=== PATIENT | male | born 1945 | race Caucasian/White ===

== ENCOUNTER 2020-08-03 10:43 | Outpatient (REF) | payer MEDICARE, SELFPAY | END 2020-08-03 10:44 | disposition home or self-care (01) | LOC: HO.LAB 10:43 | PROVIDERS: Visit Provider Internal Medicine | DX: Z20.828 Contact with and (suspected) exposure to other viral communicable diseases (principal) | CPT/HCPCS: C9803; U0003 ==

== ENCOUNTER 2020-10-13 14:09 | Outpatient (REF) | payer MEDICARE, SELFPAY ==
--- NOTE | 2020-10-13 14:13 | XR_ITS ---
EXAMINATION: XR KNEE, RIGHT CLINICAL INFORMATION: Right lower leg injury COMPARISON: None TECHNIQUE: Four views of the right knee. FINDINGS: There is loss of medial and patellofemoral compartment joint space with periarticular spurring. There is superior patellar spur. No abnormal joint effusion seen. The soft tissues are normal. XR/XR knee RT 4V IMPRESSION: Mild degenerative changes medial and patellofemoral compartment. There is anterior superior patellar enthesophyte.
== END 2020-10-13 14:10 | disposition home or self-care (01) ==
LOC: HO.HMGCX 14:09
PROVIDERS: PCP Internal Medicine; Visit Provider Nurse Practitioner Family
DX: S89.91XA Unspecified injury of right lower leg, initial encounter (principal); X58.XXXA Exposure to other specified factors, initial encounter; Y93.9 Activity, unspecified; Y92.9 Unspecified place or not applicable; Y99.9 Unspecified external cause status
CPT/HCPCS: 73564

== ENCOUNTER 2022-08-16 14:21 | Outpatient (REF) | payer MEDICARE, SELFPAY ==
[2022-08-16 14:51] LABS: Binax Internal Control QC Valid; Binax Now Covid-19 Ag Negative (Negative)
== END 2022-08-16 14:22 | disposition home or self-care (01) ==
LOC: HO.HMGCLDS 14:21
PROVIDERS: PCP Internal Medicine
DX: J02.9 Acute pharyngitis, unspecified (principal); Z20.822 Contact with and (suspected) exposure to COVID-19
CPT/HCPCS: 87811; C9803

== ENCOUNTER 2022-08-22 17:23 | Outpatient (REF) | payer MEDICARE, SELFPAY | END 2022-08-22 17:24 | disposition home or self-care (01) | LOC: HO.LNP 17:23 | PROVIDERS: Visit Provider Nurse Practitioner Family | DX: R39.11 Hesitancy of micturition (principal) | CPT/HCPCS: 87086; 87088; 87186 ==

== ENCOUNTER 2023-04-12 10:26 | Outpatient (AMB) | payer MEDICARE, SELFPAY ==
--- NOTE | 2023-04-12 10:28 | A.OFFPC_ITS ---
Vital Signs 04/12/23 10:32 Height 6 ft 3 in Weight 207 lb 6 oz BMI 25.9 BP 110/72 Blood Pressure Location Lt brachial Position Sitting Pulse 66 Pulse Source Pulse Oximeter Pulse Oximetry (%) 98 Oxygen Delivery Method Room Air Intake Visit Reasons: Med Management Intake Note: Patient is here to follow up on medication management. Pig Caster Required: No Project Construction Assistant Manager: Not Required per policy Accompanied by: Self / Same As Patient Allergies No Known Allergies [No Known Allergies*] Allergy (Verified 04/12/23 10:32) Medication List - Last Reconciled 04/12/23 by Jake Burgos MD hydrochlorothiazide 25 mg PO QAM lorazepam 1 mg PO BID 28 days oxycodone 5 mg PO QID PRN Tobacco use date assessed: 02/15/23 Fall risk assessment: No Falls in past year Last assessed Fall Risk: 04/12/23 Dental Screening Dental Screen Date: 04/12/23 Did you have a dental visit in the last 12 months?: Yes Did you have a dental problem in the last 6 months where you did not have access to dental care?: No Was dental information given to patient?: Patient has dentist HPI Med Management HPI Details f/u chronic cervical disc dis; stab;e PFSH Medical History Other spondylosis, cervical region Pharyngitis Surgical History History of prostate surgery Family History Father Bone cancer Mother Uterine cancer Brother No problems noted. Sister No problems noted. Social History Housing: House Alcohol intake: never Patient Tobacco Use Status: Never used Tobacco e-Cigarette/Vaping Use: Never Used Second Hand Smoke Exposure: No service: No Current occupational status: retired Cognitive needs: No Hearing needs: No Vision needs: Yes Questionnaire PHQ-9 Over the last 2 weeks, how often have you been bothered by any of the following problems? Depression Screening Interpretation: Negative Source: Developed by Drs. José Antonio Holloway, Martha Castillo, Daniel Ramos and colleagues, with an educational rosa from [employer]. Thrive Questionnaire Date Thrive assessed: 11/23/22 Currently or been in a relationship where the following occur: no concerns reported DEBO-7 AMB Questionnaire DEBO-7 Date DEBO - 7 assessed: 03/15/23 Source: Developed by Drs. José Antonio Holloway, Martha Castillo, Daniel Ramos and colleagues, with an educational rosa from [employer]. Review of Systems Const Denies chills, Denies headache(s) and Denies weight loss ENT Denies headache(s) Card Denies chest pain, Denies syncope, Denies irregular heart rhythm and Denies dyspnea Resp Denies chest congestion, Denies cough and Denies dyspnea GI Denies abdominal pain, Denies change in stool character, Denies nausea and Denies vomiting Musc Denies deformity and Denies joint swelling Neuro Denies syncope and Denies headache(s) Physical exam (Primary Care) Vital Signs: Last Vital Signs Pulse 66 04/12/23 10:32 BP 110/72 04/12/23 10:32 Pulse Ox 98 04/12/23 10:32 Oxygen Delivery Method Room Air 04/12/23 10:32 BMI result Body Mass Index 25.9 Tobacco/Smoking Status: Tobacco use Status Tobacco use date assessed 02/15/23 04/12/23 10:30 Patient Tobacco Use Status Never used Tobacco 04/12/23 10:30 e-Cigarette/Vaping Use Never Used 04/12/23 10:30 Depression Screening Interpretation: Negative Thrive Assessment: Date of Thrive Assessment Date Thrive assessed 11/23/22 04/12/23 10:30 Currently or been in a relationship where the following occur: no concerns reported Const General: cooperative, comfortable and no acute distress Resp Effort & Inspection: normal respiratory effort Auscultation: clear to auscultation bilaterally Percussion: percussion normal Cardio Jugular venous distension: no JVD Rate: regular rate Rhythm: regular rhythm GI Inspection: Yes normal to inspection Assessment and Plan Assessment & Plan (1) Cervical spondylosis with myelopathy: Code(s): M47.12 - Other spondylosis with myelopathy, cervical region Plan: stable; same rx Medications: Refilled oxycodone 5 mg PO QID PRN 120 tabs 0RF pain M47.12 - Other spondylosis with myelopathy, cervical region Coding Level of Care Code Est Pt Level 3 (25756) Diagnoses Cervical spondylosis with myelopathy M47.12
[2023-04-12 10:32] VITALS: BP 110/72; PULSE 66; O2SAT 98; BMI 25.9
== END 2023-04-12 11:04 | disposition home or self-care (01) ==
PROVIDERS: PCP Internal Medicine; Visit Provider Internal Medicine
DX: M47.12 Other spondylosis with myelopathy, cervical region (principal)
CPT/HCPCS: 99213

== ENCOUNTER 2023-05-03 12:19 | Outpatient (AMB) | payer MEDICARE, SELFPAY ==
--- NOTE | 2023-05-03 12:21 | MHC.OFFWIV ---
Intake Vital Signs 05/03/23 12:31 Height 6 ft 3 in Weight 207 lb 6 oz BMI 25.9 BP 130/70 Blood Pressure Location Lt brachial Position Sitting Pulse 80 Pulse Source Pulse Oximeter Temp 97.8 F Temp Source Temporal Artery Scan Pulse Oximetry (%) 97 Oxygen Delivery Method Room Air Intake Visit Reasons: EP Asthma/Tired Intake Note: Pt is here c/o possible asthma flare ups. Pt states he has been feeling extra tired. Patient Tobacco Use Status: Never used Tobacco Allergies No Known Allergies [No Known Allergies*] Allergy (Verified 05/03/23 12:25) Do you need a note to return to daycare/school/sports/work: No HPI HPI Comments History of Present Illness Details This is a 77-year-old male with past medical history significant for mild persistent asthma who presents to the office today for sick visit. Patient complaining of generalized weakness and fatigue x 1 week. He states his symptoms started mowing his lawn. He denies any specific symptoms including fevers/chills, cough, congestion/rhinorrhea, dysuria/hematuria, urinary frequency/urgency, sore throat, chest pain, shortness of breath, abdominal pain, nausea/vomiting/diarrhea, or lightheadedness/dizziness. [facility] Medical History Other spondylosis, cervical region Pharyngitis Surgical History History of prostate surgery Family History Father Bone cancer Mother Uterine cancer Brother No problems noted. Sister No problems noted. Social History Housing: House Alcohol intake: never Patient Tobacco Use Status: Never used Tobacco e-Cigarette/Vaping Use: Never Used Second Hand Smoke Exposure: No service: No Current occupational status: retired Cognitive needs: No Hearing needs: No Vision needs: Yes Review of Systems Const All systems reviewed & are unremarkable except as noted in HPI and below Reports no additional complaints and Reports fatigue Eyes Reports no additional complaints ENT Reports no additional complaints Card Reports no additional complaints Resp Reports no additional complaints GI Reports no additional complaints Reports no additional complaints Musc Reports no additional complaints Skin/Breast Reports system reviewed and no additional complaints, except as documented Neuro Reports no additional complaints Psych Reports no additional complaints Endo Reports no additional complaints and Reports fatigue Rajan/Lymph Reports no additional complaints Aller/Immun Reports no additional complaints Physical Exam Vital Signs: Last Vital Signs Temp 97.8 F 05/03/23 12:31 Pulse 80 05/03/23 12:31 BP 130/70 05/03/23 12:31 Pulse Ox 97 05/03/23 12:31 Oxygen Delivery Method Room Air 05/03/23 12:31 BMI result Body Mass Index 25.9 Const General: cooperative, healthy appearing, no acute distress and well developed Orientation/consciousness: patient oriented x3 HEENT Head: Yes normal to inspection Ears: hearing grossly normal bilaterally General nose exam: Normal external nose present Face and sinus: Yes normal facial exam Mouth: Normal oral and palatal mucosa present Eyes General: appearance normal, both eyes and all related structures Pupils: Equal, round and reactive pupils present EOM: EOMs intact bilaterally Resp Effort & Inspection: normal respiratory effort and no respiratory distress Auscultation: clear to auscultation bilaterally Cardio Rate: regular rate Rhythm: regular rhythm Heart sounds: no gallops, no murmurs and no rubs Peripheral pulses: Peripheral pulses 2+ throughout GI Inspection: No distended Palpation (GI): Soft to palpation and nontender Auscultation: normal bowel sounds Skin General skin exam: no rashes or lesions noted Neuro General: patient oriented x3 Cranial nerves: Yes CN's II-XII intact bilaterally and Yes Equal, round and reactive pupils present Gait exam (Neuro): Normal gait present Motor exam (neuro): 5/5 motor strength present throughout Extrem General: Yes normal to inspection, Yes full ROM and Yes no clubbing, cyanosis or edema Psych Appearance: grossly normal Mental Status: mental status grossly normal Assessment & Plan Assessment & Plan (1) Fatigue: Code(s): R53.83 - Other fatigue Plan: This is a 77-year-old male presenting to the office with nonspecific weakness and fatigue. He denies any specific or infectious symptoms. He is overall nontoxic appearing his physical exam is benign. Patient likely has a viral syndrome. He was tested for COVID. Recommended blood work including CBC, CMP, and TSH, which has already been ordered by his primary care physician, but patient declines at this time due to his symptoms. Encouraged patient to have this blood work done sooner rather than later specially given his symptoms. Recommended symptomatic management including rest and increase fluids. Patient was instructed to follow-up here or go to the emergency room for persistent/worsening symptoms or if he were to develop fever/chills or any specific infectious symptoms. Patient verbalizes understanding and he is in agreement with the plan. Orders: Orders SARS-CoV2/FLU/RSV Today R53.83 - Other fatigue Coding Level of Care Code Est Pt Level 3 (30136) Diagnoses Fatigue R53.83
[2023-05-03 12:31] VITALS: BP 130/70; PULSE 80; TEMP 36.6; O2SAT 97; BMI 25.9
== END 2023-05-03 13:09 | disposition home or self-care (01) ==
PROVIDERS: PCP Internal Medicine; Visit Provider Physician Assistant Medical
DX: R53.83 Other fatigue (principal)
CPT/HCPCS: 99213

== ENCOUNTER 2023-05-03 19:59 | Outpatient (REF) | payer MEDICARE, SELFPAY ==
[2023-05-03 21:07] LABS: Influenza A PCR NEGATIVE (Negative); Influenza B PCR NEGATIVE (Negative); Resp Syncy Virus RNA Qual PCR NEGATIVE (Negative); SARS COV2 PCR INHOUSE NEGATIVE (Negative)
== END 2023-05-03 20:00 | disposition home or self-care (01) ==
LOC: HO.HMGCLNP 19:59
PROVIDERS: Visit Provider Physician Assistant Medical
DX: Z20.822 Contact with and (suspected) exposure to COVID-19 (principal); R53.83 Other fatigue
CPT/HCPCS: 0241U

== ENCOUNTER 2023-05-14 09:21 | Outpatient (AMB) | payer MEDICARE, SELFPAY ==
--- NOTE | 2023-05-14 09:25 | A.OFFPC_ITS ---
Vital Signs 05/14/23 09:28 Height 6 ft 3 in Weight 199 lb 6 oz BMI 24.9 BP 145/89 H Blood Pressure Location Lt brachial Position Sitting Pulse 80 Pulse Source Pulse Oximeter Pulse Oximetry (%) 98 Oxygen Delivery Method Room Air Intake Visit Reasons: med review Intake Note: Patient is here to follow up on medication review. Roller Leveler Required: No Manager Training: Not Required per policy Accompanied by: Self / Same As Patient Allergies No Known Allergies [No Known Allergies*] Allergy (Verified 05/14/23 09:27) Medication List - Last Reconciled 05/14/23 by Jake Burgos MD fluticasone propionate 50 mcg/actuation (Flovent Diskus) 1 inh inhalation BID hydrochlorothiazide 25 mg PO QAM lorazepam 1 mg PO BID 28 days oxycodone 5 mg PO QID PRN Tobacco use date assessed: 05/14/23 Fall risk assessment: No Falls in past year Last assessed Fall Risk: 05/14/23 Dental Screening Dental Screen Date: 05/14/23 Did you have a dental visit in the last 12 months?: Yes Did you have a dental problem in the last 6 months where you did not have access to dental care?: No Was dental information given to patient?: Patient has dentist HPI med review HPI Details f/u chronic neck pain; stable on rx PFSH Medical History Other spondylosis, cervical region Pharyngitis Surgical History History of prostate surgery Family History Father Bone cancer Mother Uterine cancer Brother No problems noted. Sister No problems noted. Social History Housing: House Alcohol intake: never Patient Tobacco Use Status: Never used Tobacco e-Cigarette/Vaping Use: Never Used Second Hand Smoke Exposure: No service: No Current occupational status: retired Cognitive needs: No Hearing needs: No Vision needs: Yes Questionnaire PHQ-9 Over the last 2 weeks, how often have you been bothered by any of the following problems? Depression Screening Interpretation: Negative Source: Developed by Jose Angel Stoveret B.W. Jonathan, Daniel Ramos and colleagues, with an educational rosa from [employer]. Thrive Questionnaire Date Thrive assessed: 11/23/22 Currently or been in a relationship where the following occur: no concerns reported DEBO-7 AMB Questionnaire DEBO-7 Date DEBO - 7 assessed: 03/15/23 Source: Developed by Martha Stover, Daniel Ramos and colleagues, with an educational rosa from [employer]. Review of Systems Const Denies chills, Denies headache(s) and Denies weight loss ENT Denies headache(s) Card Denies chest pain, Denies syncope, Denies irregular heart rhythm and Denies dyspnea Resp Denies chest congestion, Denies cough and Denies dyspnea GI Denies abdominal pain, Denies change in stool character, Denies nausea and Denies vomiting Musc Denies deformity and Denies joint swelling Neuro Denies syncope and Denies headache(s) Physical exam (Primary Care) Vital Signs: Last Vital Signs Pulse 80 05/14/23 09:28 BP 145/89 H 05/14/23 09:28 Pulse Ox 98 05/14/23 09:28 Oxygen Delivery Method Room Air 05/14/23 09:28 BMI result Body Mass Index 24.9 Tobacco/Smoking Status: Tobacco use Status Tobacco use date assessed 05/14/23 05/14/23 09:36 Patient Tobacco Use Status Never used Tobacco 05/14/23 09:25 e-Cigarette/Vaping Use Never Used 05/14/23 09:25 Depression Screening Interpretation: Negative Thrive Assessment: Date of Thrive Assessment Date Thrive assessed 11/23/22 05/14/23 09:25 Currently or been in a relationship where the following occur: no concerns reported Const General: cooperative, comfortable and no acute distress Resp Effort & Inspection: normal respiratory effort Auscultation: clear to auscultation bilaterally Percussion: percussion normal Cardio Jugular venous distension: no JVD Rate: regular rate Rhythm: regular rhythm GI Inspection: Yes normal to inspection Assessment and Plan Assessment & Plan (1) Cervical spondylosis with myelopathy: Code(s): M47.12 - Other spondylosis with myelopathy, cervical region Plan: stable; same rx Medications: Refilled lorazepam 1 mg PO BID 28 days 56 tabs 5RF M47.12 - Other spondylosis with myelopathy, cervical region oxycodone 5 mg PO QID PRN 120 tabs 0RF pain M47.12 - Other spondylosis with myelopathy, cervical region Coding Level of Care Code Est Pt Level 3 (36447) Diagnoses Cervical spondylosis with myelopathy M47.12
[2023-05-14 09:28] VITALS: BP 145/89; PULSE 80; O2SAT 98; BMI 24.9
== END 2023-05-14 10:31 | disposition home or self-care (01) ==
PROVIDERS: PCP Internal Medicine; Visit Provider Internal Medicine
DX: M47.12 Other spondylosis with myelopathy, cervical region (principal)
CPT/HCPCS: 99213

== ENCOUNTER 2023-05-16 07:37 | Outpatient (REF) | payer MEDICARE, SELFPAY ==
[2023-05-16 07:50] LABS: MANUAL DIFF FLAG NO
[2023-05-16 08:03] LABS: Basophils Percent Auto 0.2 % (0-2); Eosinophils Absolute Auto 0.3 X10*3/uL (0.0-0.4); Eosinophils Percent Auto 3.7 % (0-4); Hematocrit 44.6 % (42.0-52.0); Hemoglobin 15.4 g/dl (14.0-18.0); Imm Gran Abs Auto 0.02 X10*3/uL (0.00-0.03); Imm Gran Pct Auto 0.2 % (0.0-0.4); Lymphocytes Absolute Auto 3.7 X10*3/uL (1.2-4.9); Lymphocytes Percent Auto 45.8 % (20-40); Mean Corpuscular HGB Conc 34.5 g/dl (31.0-36.0); Mean Corpuscular Volume 86.9 fL (80.0-98.0); Mean Platelet Volume 9.3 fL (9.4-12.4); Monocytes Absolute Auto 0.4 X10*3/uL (0.1-1.2); Monocytes Percent Auto 5.3 % (2-11); Neutrophils Absolute Auto 3.7 x10*3/uL (2.0-8.3); Neutrophils Percent Auto 44.8 % (45-73); Platelet Count 253 X10*3/uL (160-400); Red Blood Count 5.13 X10*6/uL (4.60-5.80); Red Cell Distribution Width 12.1 % (11.0-16.0); White Blood Count 8.2 X10*3/uL (4.8-10.8)
[2023-05-16 09:46] LABS: Alanine Aminotransferase 13 U/L (0-40); Albumin Level 4.5 g/dL (3.5-5.0); Alkaline Phosphatase 54 U/L (39-117); Anion Gap 14 (12-20); Aspartate Amino Transferase 16 U/L (5-37); Bilirubin Total 1.4 mg/dL (0.0-1.0); Blood Urea Nitrogen 14 mg/dL (9-16); Calcium 9.7 mg/dL (8.4-10.2); Carbon Dioxide 30 mmol/L (22-29); Chloride 100 mmol/L (96-108); Cholesterol 209 mg/dL (<200); Estimated Glomerular Filt Rate > 60; Glucose Fasting 111 mg/dL (60-99); HDL Cholesterol 46 mg/dL (>40); LDL Cholesterol Calculated 133 mg/dL (<100); Potassium 2.7 mmol/L (3.3-5.1); Sodium 141 mmol/L (135-145); Total Protein 7.8 g/dL (6.5-8.0); Triglycerides 150 mg/dL (<150)
[2023-05-16 10:02] LABS: Thyroid Stimulating Hormone 2.19 uIU/mL (0.32-4.0)
== END 2023-05-16 07:38 | disposition home or self-care (01) ==
LOC: HO.LAB 07:37
PROVIDERS: PCP Internal Medicine; Visit Provider Internal Medicine
DX: E78.5 Hyperlipidemia, unspecified (principal); D64.9 Anemia, unspecified; N28.9 Disorder of kidney and ureter, unspecified; E03.9 Hypothyroidism, unspecified
CPT/HCPCS: 36415; 80053; 80061; 84443; 85025

== ENCOUNTER 2023-06-14 10:21 | Outpatient (AMB) | payer MEDICARE, SELFPAY ==
[2023-06-14 10:24] VITALS: BP 132/72; PULSE 77; O2SAT 98; BMI 25.4
--- NOTE | 2023-06-14 10:24 | A.OFFPC_ITS ---
Vital Signs 06/14/23 10:24 Height 6 ft 3 in Weight 203 lb BMI 25.4 BP 132/72 Blood Pressure Location Lt brachial Position Sitting Pulse 77 Pulse Source Pulse Oximeter Pulse Oximetry (%) 98 Oxygen Delivery Method Room Air Intake Visit Reasons: med review Sparker And Patcher: Not Required per policy Accompanied by: Self / Same As Patient Allergies No Known Allergies [No Known Allergies*] Allergy (Verified 06/14/23 10:24) Tobacco use date assessed: 05/14/23 Fall risk assessment: No Falls in past year Last assessed Fall Risk: 06/14/23 Dental Screening Dental Screen Date: 06/14/23 Did you have a dental visit in the last 12 months?: No Did you have a dental problem in the last 6 months where you did not have access to dental care?: No Was dental information given to patient?: Patient has dentist HPI med review HPI Details chronic neck pain on pain management; stable and compliant; has some depressive symptoms and would like to see a therapist [facility] Medical History Pharyngitis Other spondylosis, cervical region Surgical History History of prostate surgery Family History Father Bone cancer Mother Uterine cancer Brother No problems noted. Sister No problems noted. Social History Housing: House Alcohol intake: never Patient Tobacco Use Status: Never used Tobacco e-Cigarette/Vaping Use: Never Used Second Hand Smoke Exposure: No service: No Current occupational status: retired Cognitive needs: No Hearing needs: No Vision needs: Yes Questionnaire PHQ-9 Over the last 2 weeks, how often have you been bothered by any of the following problems? 1. Little interest or pleasure in doing things: not at all 2. Feeling down, depressed, or hopeless: not at all 3. Trouble falling or staying asleep, or sleeping too much: not at all 4. Feeling tired or having little energy: not at all 5. Poor appetite or overeating: not at all 6. Feeling bad about yourself - or that you are a failure or have let yourself or your family down: not at all 7. Trouble concentrating on things, such as reading the newspaper or watching television: not at all 8. Moving or speaking so slowly that other people could have noticed. Or the opposite - being so fidgety or restless that you have been moving around a lot more than usual: not at all 9. Thoughts that you would be better off or of hurting yourself in some way: not at all Total score: 0 Depression Screening Interpretation: Negative Source: Developed by Drs. José Antonio Holloway, Martha Castillo, Daniel Ramso and colleagues, with an educational rosa from [employer]. Thrive Questionnaire Date Thrive assessed: 11/23/22 AUDIT C Alcohol Use Questionnaire (AUDIT-C) 1. How often do you have a drink containing alcohol?: Never Total Score: 0 DEBO-7 AMB Questionnaire DEBO-7 Date DEBO - 7 assessed: 03/15/23 Source: Developed by Drs. José Antonio Holloway, Martha Castillo, Daniel Ramos and colleagues, with an educational rosa from [employer]. Review of Systems Const Denies chills, Denies headache(s) and Denies weight loss ENT Denies headache(s) Card Denies chest pain, Denies syncope, Denies irregular heart rhythm and Denies dyspnea Resp Denies chest congestion, Denies cough and Denies dyspnea GI Denies abdominal pain, Denies change in stool character, Denies nausea and Denies vomiting Musc Denies deformity and Denies joint swelling Neuro Denies syncope and Denies headache(s) Physical exam (Primary Care) Vital Signs: Last Vital Signs Pulse 77 06/14/23 10:24 BP 132/72 06/14/23 10:24 Pulse Ox 98 06/14/23 10:24 Oxygen Delivery Method Room Air 06/14/23 10:24 BMI result Body Mass Index 25.4 Tobacco/Smoking Status: Tobacco use Status Tobacco use date assessed 05/14/23 06/14/23 10:25 Patient Tobacco Use Status Never used Tobacco 06/14/23 10:25 e-Cigarette/Vaping Use Never Used 06/14/23 10:25 PHQ-9: PHQ-9 Score PHQ-9: Total score 0 06/14/23 10:25 Depression Screening Interpretation: Negative Thrive Assessment: Date of Thrive Assessment Date Thrive assessed 11/23/22 06/14/23 10:25 Const General: cooperative, comfortable, no acute distress and alert Neck Neck: Yes no lymphadenopathy Thyroid: Thyroid normal Resp Effort & Inspection: normal respiratory effort Auscultation: clear to auscultation bilaterally Percussion: percussion normal Cardio Jugular venous distension: no JVD Palpation: normal PMI Rate: regular rate Rhythm: regular rhythm Heart sounds: S1 normal heart sound present and S2 normal heart sound present GI Inspection: Yes normal to inspection Palpation (GI): No hepatosplenomegaly present Skin General skin exam: no rashes or lesions noted Extrem General: Yes no clubbing, cyanosis or edema Assessment and Plan Assessment & Plan (1) Cervical spondylosis with myelopathy: Code(s): M47.12 - Other spondylosis with myelopathy, cervical region Plan: stable; same rx Coding Level of Care Code Est Pt Level 3 (80978) Diagnoses Cervical spondylosis with myelopathy M47.12
== END 2023-06-14 10:46 | disposition home or self-care (01) ==
PROVIDERS: PCP Internal Medicine; Visit Provider Internal Medicine
DX: M47.12 Other spondylosis with myelopathy, cervical region (principal)
CPT/HCPCS: 99213

== ENCOUNTER 2023-07-15 08:21 | Outpatient (AMB) | payer MEDICARE, SELFPAY ==
[2023-07-15 08:30] VITALS: BP 138/70; PULSE 67; O2SAT 99; BMI 25.2
--- NOTE | 2023-07-15 08:30 | A.OFFPC_ITS ---
Vital Signs 07/15/23 08:30 Height 6 ft 3 in Weight 202 lb BMI 25.2 BP 138/70 Blood Pressure Location Lt brachial Position Sitting Pulse 67 Pulse Source Pulse Oximeter Pulse Oximetry (%) 99 Oxygen Delivery Method Room Air Intake Visit Reasons: med review Allergies No Known Allergies [No Known Allergies*] Allergy (Verified 07/15/23 08:31) Medication List - Last Reconciled 07/15/23 by Jake Burgos MD fluticasone propionate 50 mcg/actuation (Flovent Diskus) 1 inh inhalation BID hydrochlorothiazide 25 mg PO QAM lorazepam 1 mg PO BID 28 days oxycodone 5 mg PO QID PRN Tobacco use date assessed: 05/14/23 Fall risk assessment: No Falls in past year Last assessed Fall Risk: 07/15/23 Dental Screening Dental Screen Date: 07/15/23 Did you have a dental visit in the last 12 months?: Yes Did you have a dental problem in the last 6 months where you did not have access to dental care?: No Was dental information given to patient?: Patient has dentist HPI med review HPI Details cervical spondylosis on rx ;doing well andcompliant [facility] Medical History Pharyngitis Other spondylosis, cervical region Surgical History History of prostate surgery Family History Father Bone cancer Mother Uterine cancer Brother No problems noted. Sister No problems noted. Social History Housing: House Alcohol intake: never Patient Tobacco Use Status: Never used Tobacco e-Cigarette/Vaping Use: Never Used Second Hand Smoke Exposure: No service: No Current occupational status: retired Cognitive needs: No Hearing needs: No Vision needs: Yes Questionnaire PHQ-9 Over the last 2 weeks, how often have you been bothered by any of the following problems? 1. Little interest or pleasure in doing things: not at all 2. Feeling down, depressed, or hopeless: not at all 3. Trouble falling or staying asleep, or sleeping too much: not at all 4. Feeling tired or having little energy: not at all 5. Poor appetite or overeating: not at all 6. Feeling bad about yourself - or that you are a failure or have let yourself or your family down: not at all 7. Trouble concentrating on things, such as reading the newspaper or watching television: not at all 8. Moving or speaking so slowly that other people could have noticed. Or the opposite - being so fidgety or restless that you have been moving around a lot more than usual: not at all 9. Thoughts that you would be better off or of hurting yourself in some way: not at all Total score: 0 Depression Screening Interpretation: Negative Depression Screening Done: Yes Source: Developed by Drs. José Antonio Holloway, Martha Castillo, Daniel Ramos and colleagues, with an educational rosa from [employer]. Thrive Questionnaire Date Thrive assessed: 11/23/22 AUDIT C Alcohol Use Questionnaire (AUDIT-C) 1. How often do you have a drink containing alcohol?: Never Total Score: 0 DEBO-7 AMB Questionnaire DEBO-7 Date DEBO - 7 assessed: 03/15/23 Source: Developed by Drs. José Antonio Holloway, Martha Castillo, Daniel Ramos and colleagues, with an educational rosa from [employer]. Review of Systems Const Denies chills, Denies headache(s) and Denies weight loss ENT Denies headache(s) Card Denies chest pain, Denies syncope, Denies irregular heart rhythm and Denies dyspnea Resp Denies chest congestion, Denies cough and Denies dyspnea GI Denies abdominal pain, Denies change in stool character, Denies nausea and Denies vomiting Musc Denies deformity and Denies joint swelling Neuro Denies syncope and Denies headache(s) Physical exam (Primary Care) Vital Signs: Last Vital Signs Pulse 67 07/15/23 08:30 BP 138/70 07/15/23 08:30 Pulse Ox 99 07/15/23 08:30 Oxygen Delivery Method Room Air 07/15/23 08:30 BMI result Body Mass Index 25.2 Tobacco/Smoking Status: Tobacco use Status Tobacco use date assessed 05/14/23 07/15/23 08:36 Patient Tobacco Use Status Never used Tobacco 07/15/23 08:36 e-Cigarette/Vaping Use Never Used 07/15/23 08:36 PHQ-9: PHQ-9 Score PHQ-9: Total score 0 07/15/23 08:36 Depression Screening Interpretation: Negative Thrive Assessment: Date of Thrive Assessment Date Thrive assessed 11/23/22 07/15/23 08:36 Const General: cooperative, comfortable, no acute distress and alert Neck Neck: Yes no lymphadenopathy Thyroid: Thyroid normal Resp Effort & Inspection: normal respiratory effort Auscultation: clear to auscultation bilaterally Percussion: percussion normal Cardio Jugular venous distension: no JVD Palpation: normal PMI Rate: regular rate Rhythm: regular rhythm Heart sounds: S1 normal heart sound present and S2 normal heart sound present GI Inspection: Yes normal to inspection Palpation (GI): No hepatosplenomegaly present Skin General skin exam: no rashes or lesions noted Extrem General: Yes no clubbing, cyanosis or edema Assessment and Plan Assessment & Plan (1) Cervical spondylosis with myelopathy: Code(s): M47.12 - Other spondylosis with myelopathy, cervical region Plan: stable; same rx Medications: Refilled oxycodone 5 mg PO QID PRN 120 tabs 0RF pain M47.12 - Other spondylosis with myelopathy, cervical region lorazepam 1 mg PO BID 56 tabs 5RF 28 days M47.12 - Other spondylosis with myelopathy, cervical region Coding Level of Care Code Est Pt Level 3 (08702) Diagnoses Cervical spondylosis with myelopathy M47.12
== END 2023-07-15 09:11 | disposition home or self-care (01) ==
PROVIDERS: PCP Internal Medicine; Visit Provider Internal Medicine
DX: M47.12 Other spondylosis with myelopathy, cervical region (principal)
CPT/HCPCS: 99213

== ENCOUNTER 2023-08-14 08:14 | Outpatient (AMB) | payer MEDICARE, SELFPAY ==
[2023-08-14 08:29] VITALS: BP 140/72; PULSE 70; O2SAT 99; BMI 24.7
--- NOTE | 2023-08-14 08:29 | A.OFFPC_ITS ---
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: Not Required per policy Accompanied by: Self / Same As Patient Allergies No Known Allergies [No Known Allergies*] Allergy (Verified 08/14/23 08:30) Medication List - Last Reconciled 08/14/23 by Jake Burgos MD fluticasone propionate 50 mcg/actuation (Flovent Diskus) 1 inh inhalation BID hydrochlorothiazide 25 mg PO QAM lorazepam 1 mg PO BID 28 days oxycodone 5 mg PO QID PRN Tobacco use date assessed: 05/14/23 Fall risk assessment: No Falls in past year Last assessed Fall Risk: 08/14/23 Dental Screening Dental Screen Date: 08/14/23 Did you have a dental visit in the last 12 months?: Yes Did you have a dental problem in the last 6 months where you did not have access to dental care?: No Was dental information given to patient?: Patient has dentist HPI med review HPI Details chronic neck pain on rx; doing well [facility] Medical History Pharyngitis Other spondylosis, cervical region Surgical History History of prostate surgery Family History Father Bone cancer Mother Uterine cancer Brother No problems noted. Sister No problems noted. Social History Housing: House Alcohol intake: never Patient Tobacco Use Status: Never used Tobacco e-Cigarette/Vaping Use: Never Used Second Hand Smoke Exposure: No service: No Current occupational status: retired Cognitive needs: No Hearing needs: No Vision needs: Yes Questionnaire Thrive Questionnaire Date Thrive assessed: 11/23/22 DEBO-7 AMB Questionnaire DEBO-7 Date DEBO - 7 assessed: 03/15/23 Source: Developed by Drs. José Antonio Holloway, Martha CastilloDaniel and colleagues, with an educational rosa from [employer]. Review of Systems Const Denies chills, Denies headache(s) and Denies weight loss ENT Denies headache(s) Card Denies chest pain, Denies syncope, Denies irregular heart rhythm and Denies dyspnea Resp Denies chest congestion, Denies cough and Denies dyspnea GI Denies abdominal pain, Denies change in stool character, Denies nausea and Denies vomiting Musc Denies deformity and Denies joint swelling Neuro Denies syncope and Denies headache(s) Physical exam (Primary Care) Vital Signs: Last Vital Signs Pulse 70 08/14/23 08:29 BP 140/72 H 08/14/23 08:29 Pulse Ox 99 08/14/23 08:29 Oxygen Delivery Method Room Air 08/14/23 08:29 BMI result Body Mass Index 24.7 Tobacco/Smoking Status: Tobacco use Status Tobacco use date assessed 05/14/23 08/14/23 08:30 Patient Tobacco Use Status Never used Tobacco 08/14/23 08:30 e-Cigarette/Vaping Use Never Used 08/14/23 08:30 Thrive Assessment: Date of Thrive Assessment Date Thrive assessed 11/23/22 08/14/23 08:30 Const General: cooperative, comfortable, no acute distress and alert Neck Neck: Yes no lymphadenopathy Thyroid: Thyroid normal Resp Effort & Inspection: normal respiratory effort Auscultation: clear to auscultation bilaterally Percussion: percussion normal Cardio Jugular venous distension: no JVD Palpation: normal PMI Rate: regular rate Rhythm: regular rhythm Heart sounds: S1 normal heart sound present and S2 normal heart sound present GI Inspection: Yes normal to inspection Palpation (GI): No hepatosplenomegaly present Skin General skin exam: no rashes or lesions noted Extrem General: Yes no clubbing, cyanosis or edema Assessment and Plan Assessment & Plan (1) Cervical spondylosis with myelopathy: Code(s): M47.12 - Other spondylosis with myelopathy, cervical region Plan: stable; same rx Medications: Refilled oxycodone 5 mg PO QID PRN 120 tabs 0RF pain M47.12 - Other spondylosis with myelopathy, cervical region lorazepam 1 mg PO BID 56 tabs 5RF 28 days M47.12 - Other spondylosis with myelopathy, cervical region Coding Level of Care Code Est Pt Level 3 (78774) Diagnoses Cervical spondylosis with myelopathy M47.12
== END 2023-08-14 08:53 | disposition home or self-care (01) ==
PROVIDERS: PCP Internal Medicine; Visit Provider Internal Medicine
DX: M47.12 Other spondylosis with myelopathy, cervical region (principal)
CPT/HCPCS: 99213

== ENCOUNTER 2023-10-14 10:38 | Outpatient (AMB) | payer MEDICARE, SELFPAY ==
[2023-10-14 10:42] VITALS: BP 130/74; PULSE 70; O2SAT 98; BMI 24.9
--- NOTE | 2023-10-14 10:42 | A.OFFPC_ITS ---
Vital Signs 10/14/23 10:42 Height 6 ft 3 in Weight 199 lb BMI 24.9 BP 130/74 Blood Pressure Location Lt brachial Position Sitting Pulse 70 Pulse Source Pulse Oximeter Pulse Oximetry (%) 98 Oxygen Delivery Method Room Air Intake Visit Reasons: Med Management Survey Researcher Required: No Case Packer And Sealer: Not Required per policy Accompanied by: Self / Same As Patient Allergies No Known Allergies [No Known Allergies*] Allergy (Verified 10/14/23 10:42) Medication List - Last Reconciled 10/14/23 by Jake Burgos MD fluticasone propionate 50 mcg/actuation (Flovent Diskus) 1 inh inhalation BID hydrochlorothiazide 25 mg PO QAM lorazepam 1 mg PO BID 28 days oxycodone 5 mg PO QID PRN Tobacco use date assessed: 10/14/23 Fall risk assessment: No Falls in past year Last assessed Fall Risk: 10/14/23 Dental Screening Dental Screen Date: 10/14/23 Did you have a dental visit in the last 12 months?: Yes Did you have a dental problem in the last 6 months where you did not have access to dental care?: No Was dental information given to patient?: Patient has dentist HPI Med Management HPI Details cervical spondylosis; doing well on rx and compliant [facility] Medical History Pharyngitis Other spondylosis, cervical region Surgical History History of prostate surgery Family History Father Bone cancer Mother Uterine cancer Brother No problems noted. Sister No problems noted. Social History Housing: House Alcohol intake: never Patient Tobacco Use Status: Never used Tobacco e-Cigarette/Vaping Use: Never Used Second Hand Smoke Exposure: No service: No Current occupational status: retired Cognitive needs: No Hearing needs: No Vision needs: Yes Questionnaire PHQ-9 Over the last 2 weeks, how often have you been bothered by any of the following problems? 1. Little interest or pleasure in doing things: not at all 2. Feeling down, depressed, or hopeless: not at all 3. Trouble falling or staying asleep, or sleeping too much: not at all 4. Feeling tired or having little energy: not at all 5. Poor appetite or overeating: not at all 6. Feeling bad about yourself - or that you are a failure or have let yourself or your family down: not at all 7. Trouble concentrating on things, such as reading the newspaper or watching television: not at all 8. Moving or speaking so slowly that other people could have noticed. Or the opposite - being so fidgety or restless that you have been moving around a lot more than usual: not at all 9. Thoughts that you would be better off or of hurting yourself in some way: not at all Total score: 0 Depression Screening Interpretation: Negative Depression Screening Done: Yes Source: Developed by Drs. José Antonio Holloway, Martha Castillo, Daniel Ramos and colleagues, with an educational rosa from [employer]. Thrive Questionnaire Date Thrive assessed: 10/14/23 I am a: Patient What is your living situation today?: I have a steady place to live Within the past 12 months, did the food you bought not last and you didn't have the money to get more?: Never true Within the past 12 months, did you worry whether your food would run out before you got money to buy more?: Never true Do you have trouble paying for medicines?: No Do you have trouble getting transportation to medical appointments?: No Do you have trouble paying your heating and electricity bill?: No Do you have trouble taking care of your child, family member or friend?: No Do you have trouble with day-to-day activities such as bathing, preparing meals, shopping, managing finances, etc.?: No Are you currently unemployed and looking for a job?: No Are you interested in more education?: No Please select the resources that you would like help with: None THRIVE Score: 0 AUDIT C Alcohol Use Questionnaire (AUDIT-C) 1. How often do you have a drink containing alcohol?: Never Total Score: 0 DEBO-7 AMB Questionnaire DEBO-7 Date DEBO - 7 assessed: 10/14/23 Feeling nervous, anxious, or on edge: 0 = Not at all Not being able to stop or control worryin = Not at all Worrying too much about different things: 0 = Not at all Trouble relaxin = Not at all Being so restless that it is hard to sit still: 0 = Not at all Becoming easily annoyed or irritable: 0 = Not at all Feeling afraid as if something awful might happen: 0 = Not at all Total DEBO-7 score (0-4 normal; 5-9 mild; 10-14 moderate; 15-21 severe): 0 Source: Developed by Drs. José Antonio Holloway, Martha Castillo, Daniel Ramos and colleagues, with an educational rosa from [employer]. Review of Systems Const Denies chills, Denies headache(s) and Denies weight loss ENT Denies headache(s) Card Denies chest pain, Denies syncope, Denies irregular heart rhythm and Denies dyspnea Resp Denies chest congestion, Denies cough and Denies dyspnea GI Denies abdominal pain, Denies change in stool character, Denies nausea and Denies vomiting Musc Denies deformity and Denies joint swelling Neuro Denies syncope and Denies headache(s) Physical exam (Primary Care) Vital Signs: Last Vital Signs Pulse 70 10/14/23 10:42 BP 130/74 10/14/23 10:42 Pulse Ox 98 10/14/23 10:42 Oxygen Delivery Method Room Air 10/14/23 10:42 BMI result Body Mass Index 24.9 Tobacco/Smoking Status: Tobacco use Status Tobacco use date assessed 10/14/23 10/14/23 10:43 Patient Tobacco Use Status Never used Tobacco 10/14/23 10:43 e-Cigarette/Vaping Use Never Used 10/14/23 10:43 PHQ-9: PHQ-9 Score PHQ-9: Total score 0 10/14/23 10:43 Depression Screening Interpretation: Negative Thrive Assessment: Date of Thrive Assessment Date Thrive assessed 10/14/23 10/14/23 10:43 Const General: cooperative, comfortable, no acute distress and alert Neck Neck: Yes no lymphadenopathy Thyroid: Thyroid normal Resp Effort & Inspection: normal respiratory effort Auscultation: clear to auscultation bilaterally Percussion: percussion normal Cardio Jugular venous distension: no JVD Palpation: normal PMI Rate: regular rate Rhythm: regular rhythm Heart sounds: S1 normal heart sound present and S2 normal heart sound present GI Inspection: Yes normal to inspection Palpation (GI): No hepatosplenomegaly present Skin General skin exam: no rashes or lesions noted Extrem General: Yes no clubbing, cyanosis or edema Assessment and Plan Assessment & Plan (1) Cervical spondylosis with myelopathy: Code(s): M47.12 - Other spondylosis with myelopathy, cervical region Plan: stable; same rx Medications: Refilled oxycodone 5 mg PO QID PRN 120 tabs 0RF pain M47.12 - Other spondylosis with myelopathy, cervical region Coding Level of Care Code Est Pt Level 3 (85852) Diagnoses Cervical spondylosis with myelopathy M47.12
== END 2023-10-14 12:05 | disposition home or self-care (01) ==
PROVIDERS: PCP Internal Medicine; Visit Provider Internal Medicine
DX: M47.12 Other spondylosis with myelopathy, cervical region (principal)
CPT/HCPCS: 99213

== ENCOUNTER 2023-11-12 09:22 | Outpatient (AMB) | payer MEDICARE, SELFPAY ==
[2023-11-12 09:23] VITALS: BP 130/72; PULSE 75; O2SAT 99; BMI 24.6
--- NOTE | 2023-11-12 09:23 | MHC.PC.OV ---
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: No First Officer And Flight Instructor: Not Required per policy Accompanied by: Self / Same As Patient Allergies No Known Allergies [No Known Allergies*] Allergy (Verified 11/12/23 09:24) Medication List - Last Reconciled 11/12/23 by Jake Burgos MD fluticasone propionate 50 mcg/actuation (Flovent Diskus) 1 inh inhalation BID hydrochlorothiazide 25 mg PO QAM lorazepam 1 mg PO BID 28 days oxycodone 5 mg PO QID PRN Tobacco use date assessed: 10/14/23 Fall risk assessment: No Falls in past year Last assessed Fall Risk: 11/12/23 Dental Screening Dental Screen Date: 11/12/23 Did you have a dental visit in the last 12 months?: Yes Did you have a dental problem in the last 6 months where you did not have access to dental care?: No Was dental information given to patient?: Patient has dentist HPI Med Management HPI Details f/u chronic neck pain on rx; doing well and compliant [facility] Medical History Pharyngitis Other spondylosis, cervical region Surgical History History of prostate surgery Family History Father Bone cancer Mother Uterine cancer Brother No problems noted. Sister No problems noted. Social History Housing: House Alcohol intake: never Patient Tobacco Use Status: Never used Tobacco e-Cigarette/Vaping Use: Never Used Second Hand Smoke Exposure: No service: No Current occupational status: retired Cognitive needs: No Hearing needs: No Vision needs: Yes Questionnaire Thrive Questionnaire Date Thrive assessed: 10/14/23 DEBO-7 AMB Questionnaire DEBO-7 Date DEBO - 7 assessed: 10/14/23 Source: Developed by Drs. José Antonio Holloway, Martha B.Daniel Cedillo and colleagues, with an educational rosa from [employer]. Review of Systems Const Denies chills, Denies headache(s) and Denies weight loss ENT Denies headache(s) Card Denies chest pain, Denies syncope, Denies irregular heart rhythm and Denies dyspnea Resp Denies chest congestion, Denies cough and Denies dyspnea GI Denies abdominal pain, Denies change in stool character, Denies nausea and Denies vomiting Musc Denies deformity and Denies joint swelling Neuro Denies syncope and Denies headache(s) Physical exam (Primary Care) Vital Signs: Last Vital Signs Pulse 75 11/12/23 09:23 BP 130/72 11/12/23 09:23 Pulse Ox 99 11/12/23 09:23 Oxygen Delivery Method Room Air 11/12/23 09:23 BMI result Body Mass Index 24.6 Tobacco/Smoking Status: Tobacco use Status Tobacco use date assessed 10/14/23 11/12/23 09:23 Patient Tobacco Use Status Never used Tobacco 11/12/23 09:23 e-Cigarette/Vaping Use Never Used 11/12/23 09:23 Thrive Assessment: Date of Thrive Assessment Date Thrive assessed 10/14/23 11/12/23 09:23 Const General: cooperative, comfortable, no acute distress and alert Neck Neck: Yes no lymphadenopathy Thyroid: Thyroid normal Resp Effort & Inspection: normal respiratory effort Auscultation: clear to auscultation bilaterally Percussion: percussion normal Cardio Jugular venous distension: no JVD Palpation: normal PMI Rate: regular rate Rhythm: regular rhythm Heart sounds: S1 normal heart sound present and S2 normal heart sound present GI Inspection: Yes normal to inspection Palpation (GI): No hepatosplenomegaly present Skin General skin exam: no rashes or lesions noted Extrem General: Yes no clubbing, cyanosis or edema Assessment and Plan Assessment & Plan (1) Cervical spondylosis with myelopathy: Code(s): M47.12 - Other spondylosis with myelopathy, cervical region Plan: stable; same rx Medications: Refilled oxycodone 5 mg PO QID PRN 120 tabs 0RF pain M47.12 - Other spondylosis with myelopathy, cervical region Coding Level of Care Code Est Pt Level 3 (00889) Diagnoses Cervical spondylosis with myelopathy M47.12
== END 2023-11-12 09:55 | disposition home or self-care (01) ==
PROVIDERS: PCP Internal Medicine; Visit Provider Internal Medicine
DX: M47.12 Other spondylosis with myelopathy, cervical region (principal)
CPT/HCPCS: 99213

== ENCOUNTER 2023-12-11 09:17 | Outpatient (AMB) | payer MEDICARE, SELFPAY ==
[2023-12-11 09:19] VITALS: BP 122/72; PULSE 70; O2SAT 99; BMI 24.9
--- NOTE | 2023-12-11 09:19 | A.OFFPC_ITS ---
Vital Signs 12/11/23 09:19 Height 6 ft 3 in Weight 199 lb BMI 24.9 BP 122/72 Blood Pressure Location Lt brachial Position Sitting Pulse 70 Pulse Source Pulse Oximeter Pulse Oximetry (%) 99 Oxygen Delivery Method Room Air Intake Visit Reasons: Med Management Statistical Typist Required: No Accompanied by: Self / Same As Patient Allergies No Known Allergies [No Known Allergies*] Allergy (Verified 12/11/23 09:19) Medication List - Last Reconciled 12/11/23 by Jake Burgos MD fluticasone propionate 50 mcg/actuation (Flovent Diskus) 1 inh inhalation BID hydrochlorothiazide 25 mg PO QAM lorazepam 1 mg PO BID 28 days oxycodone 5 mg PO QID PRN Tobacco use date assessed: 10/14/23 Fall risk assessment: No Falls in past year Last assessed Fall Risk: 12/11/23 Dental Screening Dental Screen Date: 12/11/23 Did you have a dental visit in the last 12 months?: Yes Did you have a dental problem in the last 6 months where you did not have access to dental care?: No Was dental information given to patient?: Patient has dentist HPI Med Management HPI Details f/u cervical spondylosis and chronic pain; doing well; compliant [facility] Medical History Pharyngitis Other spondylosis, cervical region Surgical History History of prostate surgery Family History Father Bone cancer Mother Uterine cancer Brother No problems noted. Sister No problems noted. Social History Housing: House Alcohol intake: never Patient Tobacco Use Status: Never used Tobacco e-Cigarette/Vaping Use: Never Used Second Hand Smoke Exposure: No service: No Current occupational status: retired Cognitive needs: No Hearing needs: No Vision needs: Yes Questionnaire PHQ-9 Over the last 2 weeks, how often have you been bothered by any of the following problems? 1. Little interest or pleasure in doing things: not at all 2. Feeling down, depressed, or hopeless: more than half the days 3. Trouble falling or staying asleep, or sleeping too much: more than half the days 4. Feeling tired or having little energy: more than half the days 5. Poor appetite or overeating: several days 6. Feeling bad about yourself - or that you are a failure or have let yourself or your family down: more than half the days 7. Trouble concentrating on things, such as reading the newspaper or watching television: not at all 8. Moving or speaking so slowly that other people could have noticed. Or the opposite - being so fidgety or restless that you have been moving around a lot more than usual: more than half the days 9. Thoughts that you would be better off or of hurting yourself in some way: not at all Total score: 11 Source: Developed by Drs. José Antonio Holloway, Martha Castillo, Daniel Ramos and colleagues, with an educational rosa from [employer]. Thrive Questionnaire Date Thrive assessed: 10/14/23 DEBO-7 AMB Questionnaire DEBO-7 Date DEBO - 7 assessed: 10/14/23 Source: Developed by Drs. José Antonio Holloway, aMrtha Castillo, Daniel Ramos and colleagues, with an educational rosa from [employer]. Review of Systems Const Denies chills, Denies headache(s) and Denies weight loss ENT Denies headache(s) Card Denies chest pain, Denies syncope, Denies irregular heart rhythm and Denies dyspnea Resp Denies chest congestion, Denies cough and Denies dyspnea GI Denies abdominal pain, Denies change in stool character, Denies nausea and Denies vomiting Musc Denies deformity and Denies joint swelling Neuro Denies syncope and Denies headache(s) Physical exam (Primary Care) Vital Signs: Last Vital Signs Pulse 70 12/11/23 09:19 BP 122/72 12/11/23 09:19 Pulse Ox 99 12/11/23 09:19 Oxygen Delivery Method Room Air 12/11/23 09:19 BMI result Body Mass Index 24.9 Tobacco/Smoking Status: Tobacco use Status Tobacco use date assessed 10/14/23 12/11/23 09:20 Patient Tobacco Use Status Never used Tobacco 12/11/23 09:20 e-Cigarette/Vaping Use Never Used 12/11/23 09:20 PHQ-9: PHQ-9 Score PHQ-9: Total score 11 12/11/23 09:29 Thrive Assessment: Date of Thrive Assessment Date Thrive assessed 10/14/23 12/11/23 09:20 Const General: cooperative, comfortable, no acute distress and alert Neck Neck: Yes no lymphadenopathy Thyroid: Thyroid normal Resp Effort & Inspection: normal respiratory effort Auscultation: clear to auscultation bilaterally Percussion: percussion normal Cardio Jugular venous distension: no JVD Palpation: normal PMI Rate: regular rate Rhythm: regular rhythm Heart sounds: S1 normal heart sound present and S2 normal heart sound present GI Inspection: Yes normal to inspection Palpation (GI): No hepatosplenomegaly present Skin General skin exam: no rashes or lesions noted Extrem General: Yes no clubbing, cyanosis or edema Assessment and Plan Assessment & Plan (1) Cervical spondylosis with myelopathy: Code(s): M47.12 - Other spondylosis with myelopathy, cervical region Plan: stable; same rx Medications: Refilled oxycodone 5 mg PO QID PRN 120 tabs 0RF pain M47.12 - Other spondylosis with myelopathy, cervical region Coding Level of Care Code Est Pt Level 3 (88418) Diagnoses Cervical spondylosis with myelopathy M47.12
== END 2023-12-11 09:46 | disposition home or self-care (01) ==
PROVIDERS: PCP Internal Medicine; Visit Provider Internal Medicine
DX: M47.12 Other spondylosis with myelopathy, cervical region (principal)
CPT/HCPCS: 99213

== ENCOUNTER 2024-01-09 13:11 | Outpatient (AMB) | payer MEDICARE, SELFPAY ==
[2024-01-09 13:12] VITALS: BP 132/64; PULSE 74; O2SAT 98; BMI 24.9
--- NOTE | 2024-01-09 13:12 | MHC.PC.OV ---
Vital Signs 01/09/24 13:12 Height 6 ft 3 in Weight 199 lb BMI 24.9 BP 132/64 Blood Pressure Location Lt brachial Position Sitting Pulse 74 Pulse Source Pulse Oximeter Pulse Oximetry (%) 98 Oxygen Delivery Method Room Air Intake Visit Reasons: 1mth f/u Felt Hat Inspector And Packer Required: No Industrial Registered Nurse: Not Required per policy Accompanied by: Self / Same As Patient Allergies No Known Allergies [No Known Allergies*] Allergy (Verified 01/09/24 13:12) Medication List - Last Reconciled 01/09/24 by Jake Burgos MD fluticasone propionate 50 mcg/actuation (Flovent Diskus) 1 inh inhalation BID hydrochlorothiazide 25 mg PO QAM lorazepam 1 mg PO BID 28 days oxycodone 5 mg PO QID PRN Tobacco use date assessed: 10/14/23 Fall risk assessment: No Falls in past year Last assessed Fall Risk: 01/09/24 Dental Screening Dental Screen Date: 12/11/23 HPI 1mth f/u HPI Details f/u chronic neck pain due to cerv disc dis; doing well on rx; compliant [facility] Medical History Pharyngitis Other spondylosis, cervical region Surgical History History of prostate surgery Family History Father Bone cancer Mother Uterine cancer Brother No problems noted. Sister No problems noted. Social History Housing: House Alcohol intake: never Patient Tobacco Use Status: Never used Tobacco e-Cigarette/Vaping Use: Never Used Second Hand Smoke Exposure: No service: No Current occupational status: retired Cognitive needs: No Hearing needs: No Vision needs: Yes Questionnaire Thrive Questionnaire Date Thrive assessed: 10/14/23 DEBO-7 AMB Questionnaire DEBO-7 Date DEBO - 7 assessed: 10/14/23 Source: Developed by Drs. José Antonio Holloway, Martha Castillo, Daniel Ramos and colleagues, with an educational rosa from [employer]. Review of Systems Const Denies chills, Denies headache(s) and Denies weight loss ENT Denies headache(s) Card Denies chest pain, Denies syncope, Denies irregular heart rhythm and Denies dyspnea Resp Denies chest congestion, Denies cough and Denies dyspnea GI Denies abdominal pain, Denies change in stool character, Denies nausea and Denies vomiting Musc Denies deformity and Denies joint swelling Neuro Denies syncope and Denies headache(s) Physical exam (Primary Care) Vital Signs: Last Vital Signs Pulse 74 01/09/24 13:12 BP 132/64 01/09/24 13:12 Pulse Ox 98 01/09/24 13:12 Oxygen Delivery Method Room Air 01/09/24 13:12 BMI result Body Mass Index 24.9 Tobacco/Smoking Status: Tobacco use Status Tobacco use date assessed 10/14/23 01/09/24 13:13 Patient Tobacco Use Status Never used Tobacco 01/09/24 13:13 e-Cigarette/Vaping Use Never Used 01/09/24 13:13 Thrive Assessment: Date of Thrive Assessment Date Thrive assessed 10/14/23 01/09/24 13:13 Const General: cooperative, comfortable, no acute distress and alert Neck Neck: Yes no lymphadenopathy Thyroid: Thyroid normal Resp Effort & Inspection: normal respiratory effort Auscultation: clear to auscultation bilaterally Percussion: percussion normal Cardio Jugular venous distension: no JVD Palpation: normal PMI Rate: regular rate Rhythm: regular rhythm Heart sounds: S1 normal heart sound present and S2 normal heart sound present GI Inspection: Yes normal to inspection Palpation (GI): No hepatosplenomegaly present Skin General skin exam: no rashes or lesions noted Extrem General: Yes no clubbing, cyanosis or edema Assessment and Plan Assessment & Plan (1) Cervical spondylosis with myelopathy: Code(s): M47.12 - Other spondylosis with myelopathy, cervical region Plan: stable; same rx Medications: Refilled oxycodone 5 mg PO QID PRN 120 tabs 0RF pain M47.12 - Other spondylosis with myelopathy, cervical region Coding Level of Care Code Est Pt Level 3 (27975) Diagnoses Cervical spondylosis with myelopathy M47.12
== END 2024-01-09 15:08 | disposition home or self-care (01) ==
PROVIDERS: PCP Internal Medicine; Visit Provider Internal Medicine
DX: M47.12 Other spondylosis with myelopathy, cervical region (principal)
CPT/HCPCS: 99213

== ENCOUNTER 2024-02-07 09:18 | Outpatient (AMB) | payer MEDICARE, SELFPAY ==
[2024-02-07 09:25] VITALS: BP 130/62; PULSE 70; O2SAT 98; BMI 24.7
--- NOTE | 2024-02-07 09:25 | MHC.PC.OV ---
Vital Signs 02/07/24 09:25 Height 6 ft 3 in Weight 198 lb BMI 24.7 BP 130/62 Blood Pressure Location Lt brachial Position Sitting Pulse 70 Pulse Source Pulse Oximeter Pulse Oximetry (%) 98 Oxygen Delivery Method Room Air Intake Visit Reasons: Med Management Turnaround Planner Required: No Lead Burner Supervisor: Not Required per policy Accompanied by: Self / Same As Patient Allergies No Known Allergies [No Known Allergies*] Allergy (Verified 02/07/24 09:26) Medication List - Last Reconciled 02/07/24 by Jake Burgos MD fluticasone propionate 50 mcg/actuation (Flovent Diskus) 1 inh inhalation BID hydrochlorothiazide 25 mg PO QAM lorazepam 1 mg PO BID 28 days oxycodone 5 mg PO QID PRN Tobacco use date assessed: 10/14/23 Fall risk assessment: No Falls in past year Last assessed Fall Risk: 02/07/24 Dental Screening Dental Screen Date: 12/11/23 HPI Med Management HPI Details chronic neck pain due to cerv spndylosis; compliant and stable on rx PFSH Medical History Pharyngitis Other spondylosis, cervical region Surgical History History of prostate surgery Family History Father Bone cancer Mother Uterine cancer Brother No problems noted. Sister No problems noted. Social History Housing: House Alcohol intake: never Patient Tobacco Use Status: Never used Tobacco e-Cigarette/Vaping Use: Never Used Second Hand Smoke Exposure: No service: No Current occupational status: retired Cognitive needs: No Hearing needs: No Vision needs: Yes Questionnaire Thrive Questionnaire Date Thrive assessed: 10/14/23 DEBO-7 AMB Questionnaire DEBO-7 Date DEBO - 7 assessed: 10/14/23 Source: Developed by Drs. José Antonio Holloway, Martha Castillo, Daniel Ramos and colleagues, with an educational rosa from [employer]. Review of Systems Const Denies chills, Denies headache(s) and Denies weight loss ENT Denies headache(s) Card Denies chest pain, Denies syncope, Denies irregular heart rhythm and Denies dyspnea Resp Denies chest congestion, Denies cough and Denies dyspnea GI Denies abdominal pain, Denies change in stool character, Denies nausea and Denies vomiting Musc Denies deformity and Denies joint swelling Neuro Denies syncope and Denies headache(s) Physical exam (Primary Care) Vital Signs: Last Vital Signs Pulse 70 02/07/24 09:25 BP 130/62 02/07/24 09:25 Pulse Ox 98 02/07/24 09:25 Oxygen Delivery Method Room Air 02/07/24 09:25 BMI result Body Mass Index 24.7 Tobacco/Smoking Status: Tobacco use Status Tobacco use date assessed 10/14/23 02/07/24 09:31 Patient Tobacco Use Status Never used Tobacco 02/07/24 09:31 e-Cigarette/Vaping Use Never Used 02/07/24 09:31 Thrive Assessment: Date of Thrive Assessment Date Thrive assessed 10/14/23 02/07/24 09:31 Const General: cooperative, comfortable, no acute distress and alert Neck Neck: Yes no lymphadenopathy Thyroid: Thyroid normal Resp Effort & Inspection: normal respiratory effort Auscultation: clear to auscultation bilaterally Percussion: percussion normal Cardio Jugular venous distension: no JVD Palpation: normal PMI Rate: regular rate Rhythm: regular rhythm Heart sounds: S1 normal heart sound present and S2 normal heart sound present GI Inspection: Yes normal to inspection Palpation (GI): No hepatosplenomegaly present Skin General skin exam: no rashes or lesions noted Extrem General: Yes no clubbing, cyanosis or edema Assessment and Plan Assessment & Plan (1) Cervical spondylosis with myelopathy: Code(s): M47.12 - Other spondylosis with myelopathy, cervical region Plan: stable; same rx Medications: Refilled oxycodone 5 mg PO QID PRN 120 tabs 0RF pain M47.12 - Other spondylosis with myelopathy, cervical region Coding Level of Care Code Est Pt Level 3 (95974) Diagnoses Cervical spondylosis with myelopathy M47.12
== END 2024-02-07 09:53 | disposition home or self-care (01) ==
PROVIDERS: PCP Internal Medicine; Visit Provider Internal Medicine
DX: M47.12 Other spondylosis with myelopathy, cervical region (principal)
CPT/HCPCS: 99213

== ENCOUNTER 2024-03-06 09:17 | Outpatient (AMB) | payer MEDICARE, SELFPAY ==
[2024-03-06 09:20] VITALS: BP 138/78; PULSE 62; O2SAT 98; BMI 24.6
--- NOTE | 2024-03-06 09:20 | MHC.PC.OV ---
Vital Signs 03/06/24 09:20 Height 6 ft 3 in Weight 197 lb 0.1 oz BMI 24.6 BP 138/78 Blood Pressure Location Lt brachial Position Sitting Pulse 62 Pulse Source Pulse Oximeter Pulse Oximetry (%) 98 Oxygen Delivery Method Room Air Intake Visit Reasons: Med Management Allergies No Known Allergies [No Known Allergies*] Allergy (Verified 03/06/24 09:24) Tobacco use date assessed: 03/06/24 Fall risk assessment: No Falls in past year Last assessed Fall Risk: 03/06/24 Dental Screening Dental Screen Date: 12/11/23 HPI Med Management HPI Details chronic neck pain due to spondylosis; stable on regimen PFSH Medical History Pharyngitis Other spondylosis, cervical region Surgical History History of prostate surgery Family History Father Bone cancer Mother Uterine cancer Brother No problems noted. Sister No problems noted. Social History Housing: House Alcohol intake: never Patient Tobacco Use Status: Never used Tobacco e-Cigarette/Vaping Use: Never Used Second Hand Smoke Exposure: No service: No Current occupational status: retired Cognitive needs: No Hearing needs: No Vision needs: Yes Questionnaire Thrive Questionnaire Date Thrive assessed: 10/14/23 AUDIT C Alcohol Use Questionnaire (AUDIT-C) 1. How often do you have a drink containing alcohol?: Never Total Score: 0 DEBO-7 AMB Questionnaire DEBO-7 Date DEBO - 7 assessed: 10/14/23 Source: Developed by Drs. José Antonio Holloway, Martha Castillo, Daniel Ramos and colleagues, with an educational rosa from [employer]. Review of Systems Const Denies chills, Denies headache(s) and Denies weight loss ENT Denies headache(s) Card Denies chest pain, Denies syncope, Denies irregular heart rhythm and Denies dyspnea Resp Denies chest congestion, Denies cough and Denies dyspnea GI Denies abdominal pain, Denies change in stool character, Denies nausea and Denies vomiting Musc Denies deformity and Denies joint swelling Neuro Denies syncope and Denies headache(s) Physical exam (Primary Care) Vital Signs: Last Vital Signs Pulse 62 03/06/24 09:20 BP 138/78 03/06/24 09:20 Pulse Ox 98 03/06/24 09:20 Oxygen Delivery Method Room Air 03/06/24 09:20 BMI result Body Mass Index 24.6 Tobacco/Smoking Status: Tobacco use Status Tobacco use date assessed 03/06/24 03/06/24 09:24 Patient Tobacco Use Status Never used Tobacco 03/06/24 09:24 e-Cigarette/Vaping Use Never Used 03/06/24 09:24 Thrive Assessment: Date of Thrive Assessment Date Thrive assessed 10/14/23 03/06/24 09:24 Const General: cooperative, comfortable, no acute distress and alert Neck Neck: Yes no lymphadenopathy Thyroid: Thyroid normal Resp Effort & Inspection: normal respiratory effort Auscultation: clear to auscultation bilaterally Percussion: percussion normal Cardio Jugular venous distension: no JVD Palpation: normal PMI Rate: regular rate Rhythm: regular rhythm Heart sounds: S1 normal heart sound present and S2 normal heart sound present GI Inspection: Yes normal to inspection Palpation (GI): No hepatosplenomegaly present Skin General skin exam: no rashes or lesions noted Extrem General: Yes no clubbing, cyanosis or edema Assessment and Plan Assessment & Plan (1) Cervical spondylosis with myelopathy: Code(s): M47.12 - Other spondylosis with myelopathy, cervical region Plan: stable; same rx Medications: Refilled oxycodone 5 mg PO QID PRN 120 tabs 0RF pain M47.12 - Other spondylosis with myelopathy, cervical region Coding Level of Care Code Est Pt Level 3 (60499) Diagnoses Cervical spondylosis with myelopathy M47.12
== END 2024-03-06 11:02 | disposition home or self-care (01) ==
PROVIDERS: PCP Internal Medicine; Visit Provider Internal Medicine
DX: M47.12 Other spondylosis with myelopathy, cervical region (principal)
CPT/HCPCS: 99213

== ENCOUNTER 2024-04-03 09:11 | Outpatient (AMB) | payer MEDICARE, SELFPAY ==
--- NOTE | 2024-04-03 09:13 | A.OFFPC_ITS ---
Vital Signs 04/03/24 09:17 Height 6 ft 3 in Weight 199 lb 6 oz BMI 24.9 BP 142/74 H Blood Pressure Location Lt brachial Position Sitting Pulse 70 Pulse Source Pulse Oximeter Pulse Oximetry (%) 97 Oxygen Delivery Method Room Air Intake Visit Reasons: Med Management Accompanied by: Self / Same As Patient Allergies No Known Allergies [No Known Allergies*] Allergy (Verified 04/03/24 09:18) Tobacco use date assessed: 03/06/24 Fall risk assessment: No Falls in past year Last assessed Fall Risk: 04/03/24 Dental Screening Dental Screen Date: 12/11/23 HPI Med Management HPI Details stable cervical disc disease; compliant [facility] Medical History Pharyngitis Other spondylosis, cervical region Surgical History History of prostate surgery Family History Father Bone cancer Mother Uterine cancer Brother No problems noted. Sister No problems noted. Social History Housing: House Alcohol intake: never Patient Tobacco Use Status: Never used Tobacco e-Cigarette/Vaping Use: Never Used Second Hand Smoke Exposure: No service: No Current occupational status: retired Cognitive needs: No Hearing needs: No Vision needs: Yes Questionnaire Thrive Questionnaire Date Thrive assessed: 10/14/23 DEBO-7 AMB Questionnaire DEBO-7 Date DEBO - 7 assessed: 10/14/23 Source: Developed by Drs. José Antonio Holloway, Martha Castillo, Daniel Ramos and colleagues, with an educational rosa from [employer]. Review of Systems Const Denies chills, Denies headache(s) and Denies weight loss ENT Denies headache(s) Card Denies chest pain, Denies syncope, Denies irregular heart rhythm and Denies dyspnea Resp Denies chest congestion, Denies cough and Denies dyspnea GI Denies abdominal pain, Denies change in stool character, Denies nausea and Denies vomiting Musc Denies deformity and Denies joint swelling Neuro Denies syncope and Denies headache(s) Physical exam (Primary Care) Vital Signs: Last Vital Signs Pulse 70 04/03/24 09:17 BP 142/74 H 04/03/24 09:17 Pulse Ox 97 04/03/24 09:17 Oxygen Delivery Method Room Air 04/03/24 09:17 BMI result Body Mass Index 24.9 Tobacco/Smoking Status: Tobacco use Status Tobacco use date assessed 03/06/24 04/03/24 09:14 Patient Tobacco Use Status Never used Tobacco 04/03/24 09:14 e-Cigarette/Vaping Use Never Used 04/03/24 09:14 Thrive Assessment: Date of Thrive Assessment Date Thrive assessed 10/14/23 04/03/24 09:14 Const General: cooperative, comfortable, no acute distress and alert Neck Neck: Yes no lymphadenopathy Thyroid: Thyroid normal Resp Effort & Inspection: normal respiratory effort Auscultation: clear to auscultation bilaterally Percussion: percussion normal Cardio Jugular venous distension: no JVD Palpation: normal PMI Rate: regular rate Rhythm: regular rhythm Heart sounds: S1 normal heart sound present and S2 normal heart sound present GI Inspection: Yes normal to inspection Palpation (GI): No hepatosplenomegaly present Skin General skin exam: no rashes or lesions noted Extrem General: Yes no clubbing, cyanosis or edema Assessment and Plan Assessment & Plan (1) Cervical spondylosis with myelopathy: Code(s): M47.12 - Other spondylosis with myelopathy, cervical region Plan: stable; same rx Medications: Refilled oxycodone 5 mg PO QID PRN 120 tabs 0RF pain M47.12 - Other spondylosis with myelopathy, cervical region Coding Level of Care Code Est Pt Level 3 (67704) Diagnoses Cervical spondylosis with myelopathy M47.12
[2024-04-03 09:17] VITALS: BP 142/74; PULSE 70; O2SAT 97; BMI 24.9
== END 2024-04-03 10:41 | disposition home or self-care (01) ==
PROVIDERS: PCP Internal Medicine; Visit Provider Internal Medicine
DX: M47.12 Other spondylosis with myelopathy, cervical region (principal)
CPT/HCPCS: 99213

== ENCOUNTER 2024-05-29 09:09 | Outpatient (AMB) | payer MEDICARE, SELFPAY ==
--- NOTE | 2024-05-29 09:11 | MHC.PC.OV ---
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 Accompanied by: Self / Same As Patient Allergies No Known Allergies [No Known Allergies*] Allergy (Verified 05/29/24 09:17) Medication List - Last Reconciled 05/29/24 by Jaek Burgos MD fluticasone propionate 50 mcg/actuation (Flovent Diskus) 1 inh inhalation BID hydrochlorothiazide 25 mg PO QAM lorazepam 1 mg PO BID 28 days oxycodone 5 mg PO QID PRN Tobacco use date assessed: 03/06/24 Fall risk assessment: No Falls in past year Last assessed Fall Risk: 05/29/24 Dental Screening Dental Screen Date: 12/11/23 HPI Med Management HPI Details stable on rx; doing well and compliant [facility] Medical History Pharyngitis Other spondylosis, cervical region Surgical History History of prostate surgery Family History Father Bone cancer Mother Uterine cancer Brother No problems noted. Sister No problems noted. Social History Housing: House Alcohol intake: never Patient Tobacco Use Status: Never used Tobacco Tobacco use type: Cigarette e-Cigarette/Vaping Use: Never Used Second Hand Smoke Exposure: No service: No Current occupational status: retired Cognitive needs: No Hearing needs: No Vision needs: Yes Questionnaire PHQ-9 Over the last 2 weeks, how often have you been bothered by any of the following problems? 1. Little interest or pleasure in doing things: not at all 2. Feeling down, depressed, or hopeless: more than half the days 3. Trouble falling or staying asleep, or sleeping too much: more than half the days 4. Feeling tired or having little energy: more than half the days 5. Poor appetite or overeating: several days 6. Feeling bad about yourself - or that you are a failure or have let yourself or your family down: more than half the days 7. Trouble concentrating on things, such as reading the newspaper or watching television: not at all 8. Moving or speaking so slowly that other people could have noticed. Or the opposite - being so fidgety or restless that you have been moving around a lot more than usual: more than half the days 9. Thoughts that you would be better off or of hurting yourself in some way: not at all Total score: 11 Source: Developed by Drs. José Antonio Holloway, Daniel Crowe and colleagues, with an educational rosa from [employer]. Thrive Questionnaire Date Thrive assessed: 10/14/23 AUDIT C Alcohol Use Questionnaire (AUDIT-C) 1. How often do you have a drink containing alcohol?: Never Total Score: 0 DEBO-7 AMB Questionnaire DEBO-7 Date DEBO - 7 assessed: 10/14/23 Source: Developed by Drs. José Antonio Holloway, Martha Castillo, Daniel Ramos and colleagues, with an educational rosa from [employer]. Review of Systems Const Denies chills, Denies headache(s) and Denies weight loss ENT Denies headache(s) Card Denies chest pain, Denies syncope, Denies irregular heart rhythm and Denies dyspnea Resp Denies chest congestion, Denies cough and Denies dyspnea GI Denies abdominal pain, Denies change in stool character, Denies nausea and Denies vomiting Musc Denies deformity and Denies joint swelling Neuro Denies syncope and Denies headache(s) Physical exam (Primary Care) Vital Signs: Last Vital Signs Pulse 66 05/29/24 09:12 BP 136/72 05/29/24 09:12 Pulse Ox 98 05/29/24 09:12 Oxygen Delivery Method Room Air 05/29/24 09:12 BMI result Body Mass Index 25.1 Tobacco/Smoking Status: Tobacco use Status Tobacco use date assessed 03/06/24 05/29/24 09:17 Patient Tobacco Use Status Never used Tobacco 05/29/24 09:17 Tobacco use type Cigarette 05/29/24 09:17 e-Cigarette/Vaping Use Never Used 05/29/24 09:17 PHQ-9: PHQ-9 Score PHQ-9: Total score 11 05/29/24 09:17 Thrive Assessment: Date of Thrive Assessment Date Thrive assessed 10/14/23 05/29/24 09:17 Const General: cooperative, comfortable, no acute distress and alert Neck Neck: Yes no lymphadenopathy Thyroid: Thyroid normal Resp Effort & Inspection: normal respiratory effort Auscultation: clear to auscultation bilaterally Percussion: percussion normal Cardio Jugular venous distension: no JVD Palpation: normal PMI Rate: regular rate Rhythm: regular rhythm Heart sounds: S1 normal heart sound present and S2 normal heart sound present GI Inspection: Yes normal to inspection Palpation (GI): No hepatosplenomegaly present Skin General skin exam: no rashes or lesions noted Extrem General: Yes no clubbing, cyanosis or edema Assessment and Plan Assessment & Plan (1) Cervical spondylosis with myelopathy: Code(s): M47.12 - Other spondylosis with myelopathy, cervical region Plan: stable; same rx Medications: Refilled oxycodone 5 mg PO QID PRN 120 tabs 0RF pain M47.12 - Other spondylosis with myelopathy, cervical region Coding Level of Care Code Est Pt Level 3 (01054) Diagnoses Cervical spondylosis with myelopathy M47.12
[2024-05-29 09:12] VITALS: BP 136/72; PULSE 66; O2SAT 98; BMI 25.1
== END 2024-05-29 09:26 | disposition home or self-care (01) ==
PROVIDERS: PCP Internal Medicine; Visit Provider Internal Medicine
DX: M47.12 Other spondylosis with myelopathy, cervical region (principal)
CPT/HCPCS: 99213

== ENCOUNTER 2024-06-26 09:29 | Outpatient (AMB) | payer MEDICARE, SELFPAY ==
[2024-06-26 09:33] VITALS: BP 116/70; PULSE 76; O2SAT 95; BMI 25.4
--- NOTE | 2024-06-26 09:33 | A.OFFPC_ITS ---
Vital Signs 06/26/24 09:33 Height 6 ft 3 in Weight 203 lb BMI 25.4 BP 116/70 Blood Pressure Location Lt brachial Position Sitting Pulse 76 Pulse Source Pulse Oximeter Pulse Oximetry (%) 95 Oxygen Delivery Method Room Air Intake Visit Reasons: Med Management Intake Note: Pt reports his asthma has been worse with the change of the seasons. 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 Accompanied by: Self / Same As Patient Allergies No Known Allergies [No Known Allergies*] Allergy (Verified 06/26/24 09:34) Medication List - Last Reconciled 06/26/24 by Jake Burgos MD fluticasone propionate 50 mcg/actuation (Flovent Diskus) 1 inh inhalation BID hydrochlorothiazide 25 mg PO QAM lorazepam 1 mg PO BID 28 days oxycodone 5 mg PO QID PRN Tobacco use date assessed: 03/06/24 Fall risk assessment: No Falls in past year Last assessed Fall Risk: 06/26/24 Dental Screening Dental Screen Date: 12/11/23 HPI Med Management HPI Details cervical disc disease on rx; doing well and compliant [facility] Medical History Pharyngitis Other spondylosis, cervical region Surgical History History of prostate surgery Family History Father Bone cancer Mother Uterine cancer Brother No problems noted. Sister No problems noted. Social History Housing: House Alcohol intake: never Patient Tobacco Use Status: Never used Tobacco Tobacco use type: Cigarette e-Cigarette/Vaping Use: Never Used Second Hand Smoke Exposure: No service: No Current occupational status: retired Cognitive needs: No Hearing needs: No Vision needs: Yes Questionnaire PHQ-9 Over the last 2 weeks, how often have you been bothered by any of the following problems? 1. Little interest or pleasure in doing things: not at all 2. Feeling down, depressed, or hopeless: more than half the days 3. Trouble falling or staying asleep, or sleeping too much: more than half the days 4. Feeling tired or having little energy: more than half the days 5. Poor appetite or overeating: several days 6. Feeling bad about yourself - or that you are a failure or have let yourself or your family down: more than half the days 7. Trouble concentrating on things, such as reading the newspaper or watching television: not at all 8. Moving or speaking so slowly that other people could have noticed. Or the opposite - being so fidgety or restless that you have been moving around a lot more than usual: more than half the days 9. Thoughts that you would be better off or of hurting yourself in some way: not at all Total score: 11 Source: Developed by Drs. José Antonio Holloway, Martha Castillo, Daniel Ramos and colleagues, with an educational rosa from [employer]. Thrive Questionnaire Date Thrive assessed: 10/14/23 Are you currently unemployed and looking for a job?: No AUDIT C Alcohol Use Questionnaire (AUDIT-C) 1. How often do you have a drink containing alcohol?: Never 3. How often do you have six or more drinks on one occasion?: Never Total Score: 0 DEBO-7 AMB Questionnaire DEBO-7 Date DEBO - 7 assessed: 10/14/23 Source: Developed by Drs. José Antonio Holloway, Martha Castillo, Daniel Ramos and colleagues, with an educational rosa from [employer]. Review of Systems Const Denies chills, Denies headache(s) and Denies weight loss ENT Denies headache(s) Card Denies chest pain, Denies syncope, Denies irregular heart rhythm and Denies dyspnea Resp Denies chest congestion, Denies cough and Denies dyspnea GI Denies abdominal pain, Denies change in stool character, Denies nausea and Denies vomiting Musc Denies deformity and Denies joint swelling Neuro Denies syncope and Denies headache(s) Physical exam (Primary Care) Vital Signs: Last Vital Signs Pulse 76 06/26/24 09:33 BP 116/70 06/26/24 09:33 Pulse Ox 95 06/26/24 09:33 Oxygen Delivery Method Room Air 06/26/24 09:33 BMI result Body Mass Index 25.4 Tobacco/Smoking Status: Tobacco use Status Tobacco use date assessed 03/06/24 06/26/24 09:38 Patient Tobacco Use Status Never used Tobacco 06/26/24 09:38 Tobacco use type Cigarette 10/11/24 09:38 e-Cigarette/Vaping Use Never Used 06/26/24 09:38 PHQ-9: PHQ-9 Score PHQ-9: Total score 11 06/26/24 09:47 Thrive Assessment: Date of Thrive Assessment Date Thrive assessed 10/14/23 06/26/24 09:38 Const General: cooperative, comfortable, no acute distress and alert Neck Neck: Yes no lymphadenopathy Thyroid: Thyroid normal Resp Effort & Inspection: normal respiratory effort Auscultation: clear to auscultation bilaterally Percussion: percussion normal Cardio Jugular venous distension: no JVD Palpation: normal PMI Rate: regular rate Rhythm: regular rhythm Heart sounds: S1 normal heart sound present and S2 normal heart sound present GI Inspection: Yes normal to inspection Palpation (GI): No hepatosplenomegaly present Skin General skin exam: no rashes or lesions noted Extrem General: Yes no clubbing, cyanosis or edema Coding Level of Care Code Est Pt Level 3 (06467) Diagnoses Cervical spondylosis with myelopathy M47.12 Assessment & Plan Assessment & Plan (1) Cervical spondylosis with myelopathy: Code(s): M47.12 - Other spondylosis with myelopathy, cervical region Category: Medical Plan: stable; same rx Orders: Orders Influenza [id number] Immunization Today Z23 - Encounter for immunization Medications: New Fluarix Triv [id number] (PF) (flu vacc [id number] 6mos up(PF)) 0.5 mL IM ONCE 0.5 mL 0RF NS Z23 - Encounter for immunization Refilled oxycodone 5 mg PO QID PRN 120 tabs 0RF pain M47.12 - Other spondylosis with myelopathy, cervical region
== END 2024-06-26 10:48 | disposition home or self-care (01) ==
PROVIDERS: PCP Internal Medicine; Visit Provider Internal Medicine
DX: M47.12 Other spondylosis with myelopathy, cervical region (principal); Z23 Encounter for immunization

== ENCOUNTER → 2024-06-26 09:29 | Outpatient (BNVA) | payer MEDICARE, SELFPAY | PROVIDERS: PCP Internal Medicine; Visit Provider Internal Medicine | DX: Z23 Encounter for immunization (principal); M47.12 Other spondylosis with myelopathy, cervical region | CPT/HCPCS: 90471; 90656; 96127; 99212 ==

== ENCOUNTER 2024-07-24 09:29 | Outpatient (AMB) | payer MEDICARE, SELFPAY ==
[2024-07-24 09:30] VITALS: BP 150/82; PULSE 84; O2SAT 95; BMI 25.6
--- NOTE | 2024-07-24 09:30 | A.OFFPC_ITS ---
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 Accompanied by: Self / Same As Patient Allergies No Known Allergies [No Known Allergies*] Allergy (Verified 07/24/24 09:30) Medication List - Last Reconciled 07/24/24 by Jake Burgos MD fluticasone propionate 50 mcg/actuation (Flovent Diskus) 1 inh inhalation BID hydrochlorothiazide 25 mg PO QAM lorazepam 1 mg PO BID 28 days oxycodone 5 mg PO QID PRN Tobacco use date assessed: 03/06/24 Fall risk assessment: No Falls in past year Last assessed Fall Risk: 07/24/24 Dental Screening Dental Screen Date: 12/11/23 HPI Med Management HPI Details cervical spondylosis on rx; compliant with meds [facility] Medical History Pharyngitis Other spondylosis, cervical region Surgical History History of prostate surgery Family History Father Bone cancer Mother Uterine cancer Brother No problems noted. Sister No problems noted. Social History Housing: House Alcohol intake: never Patient Tobacco Use Status: Never used Tobacco Tobacco use type: Cigarette e-Cigarette/Vaping Use: Never Used Second Hand Smoke Exposure: No service: No Current occupational status: retired Cognitive needs: No Hearing needs: No Vision needs: Yes Questionnaire Thrive Questionnaire Date Thrive assessed: 10/14/23 Are you currently unemployed and looking for a job?: No DEBO-7 AMB Questionnaire DEBO-7 Date DEBO - 7 assessed: 10/14/23 Source: Developed by Drs. José Antonio Holloway, Martha Castillo, Daniel Ramos and colleagues, with an educational rosa from [employer]. Review of Systems Const Denies chills, Denies headache(s) and Denies weight loss ENT Denies headache(s) Card Denies chest pain, Denies syncope, Denies irregular heart rhythm and Denies dyspnea Resp Denies chest congestion, Denies cough and Denies dyspnea GI Denies abdominal pain, Denies change in stool character, Denies nausea and Denies vomiting Musc Denies deformity and Denies joint swelling Neuro Denies syncope and Denies headache(s) Physical exam (Primary Care) Vital Signs: Last Vital Signs Pulse 84 07/24/24 09:30 BP 150/82 H 07/24/24 09:30 Pulse Ox 95 07/24/24 09:30 Oxygen Delivery Method Room Air 07/24/24 09:30 BMI result Body Mass Index 25.6 Tobacco/Smoking Status: Tobacco use Status Tobacco use date assessed 03/06/24 07/24/24 09:32 Patient Tobacco Use Status Never used Tobacco 07/24/24 09:32 Tobacco use type Cigarette 07/24/24 09:32 e-Cigarette/Vaping Use Never Used 07/24/24 09:32 Thrive Assessment: Date of Thrive Assessment Date Thrive assessed 10/14/23 07/24/24 09:32 Const General: cooperative, comfortable, no acute distress and alert Neck Neck: Yes no lymphadenopathy Thyroid: Thyroid normal Resp Effort & Inspection: normal respiratory effort Auscultation: clear to auscultation bilaterally Percussion: percussion normal Cardio Jugular venous distension: no JVD Palpation: normal PMI Rate: regular rate Rhythm: regular rhythm Heart sounds: S1 normal heart sound present and S2 normal heart sound present GI Inspection: Yes normal to inspection Palpation (GI): No hepatosplenomegaly present Skin General skin exam: no rashes or lesions noted Extrem General: Yes no clubbing, cyanosis or edema Coding Level of Care Code Est Pt Level 3 (53824) Diagnoses Cervical spondylosis with myelopathy M47.12 Assessment & Plan Assessment & Plan (1) Cervical spondylosis with myelopathy: Code(s): M47.12 - Other spondylosis with myelopathy, cervical region Category: Medical Plan: stable; same rx Medications: New zolpidem 5 mg PO BEDTIME PRN 30 tabs 4RF sleep Refilled oxycodone 5 mg PO QID PRN 120 tabs 0RF pain M47.12 - Other spondylosis with myelopathy, cervical region
== END 2024-07-24 10:36 | disposition home or self-care (01) ==
PROVIDERS: PCP Internal Medicine; Visit Provider Internal Medicine
DX: M47.12 Other spondylosis with myelopathy, cervical region (principal)

== ENCOUNTER → 2024-07-24 09:29 | Outpatient (BNVA) | payer MEDICARE, SELFPAY | PROVIDERS: PCP Internal Medicine; Visit Provider Internal Medicine | DX: M47.12 Other spondylosis with myelopathy, cervical region (principal); Z79.899 Other long term (current) drug therapy | CPT/HCPCS: 99212 ==

== ENCOUNTER 2024-08-21 09:34 | Outpatient (AMB) | payer MEDICARE, SELFPAY ==
--- NOTE | 2024-08-21 09:35 | A.OFFPC_ITS ---
Intake Visit Reasons: Med Management Intake Note: Patient is here to follow up on Med management. 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 Accompanied by: Self / Same As Patient Allergies No Known Allergies [No Known Allergies*] Allergy (Verified 08/21/24 09:36) Medication List - Last Reconciled 08/21/24 by Jake Burgos MD fluticasone propionate 50 mcg/actuation (Flovent Diskus) 1 inh inhalation BID hydrochlorothiazide 25 mg PO QAM lorazepam 1 mg PO BID 28 days oxycodone 5 mg PO QID PRN zolpidem 5 mg PO BEDTIME PRN Tobacco use date assessed: 08/21/24 Fall risk assessment: No Falls in past year Last assessed Fall Risk: 08/21/24 Dental Screening Dental Screen Date: 12/11/23 HPI Med Management HPI Details cervical disc disease; stable on rx; compliant [facility] Medical History Pharyngitis Other spondylosis, cervical region Surgical History History of prostate surgery Family History Father Bone cancer Mother Uterine cancer Brother No problems noted. Sister No problems noted. Social History Housing: House Alcohol intake: never Patient Tobacco Use Status: Never used Tobacco Tobacco use type: Cigarette e-Cigarette/Vaping Use: Never Used Second Hand Smoke Exposure: No service: No Current occupational status: retired Cognitive needs: No Hearing needs: No Vision needs: Yes Questionnaire Thrive Questionnaire Date Thrive assessed: 10/14/23 DEBO-7 AMB Questionnaire DEBO-7 Date DEBO - 7 assessed: 10/14/23 Source: Developed by Drs. José Antonio Holloway, Martha Castillo, Daniel Ramos and colleagues, with an educational rosa from [employer]. Review of Systems Const Denies chills, Denies headache(s) and Denies weight loss ENT Denies headache(s) Card Denies chest pain, Denies syncope, Denies irregular heart rhythm and Denies dyspnea Resp Denies chest congestion, Denies cough and Denies dyspnea GI Denies abdominal pain, Denies change in stool character, Denies nausea and Denies vomiting Musc Denies deformity and Denies joint swelling Neuro Denies syncope and Denies headache(s) Physical exam (Primary Care) Tobacco/Smoking Status: Tobacco use Status Tobacco use date assessed 08/21/24 08/21/24 09:37 Patient Tobacco Use Status Never used Tobacco 08/21/24 09:37 Tobacco use type Cigarette 08/21/24 09:37 e-Cigarette/Vaping Use Never Used 08/21/24 09:37 Thrive Assessment: Date of Thrive Assessment Date Thrive assessed 10/14/23 08/21/24 09:37 Telehealth Telehealth Telehealth Platform: Telephone Location of provider rendering services: practice address Location of patient: address on file Patient Identification confirmed using: Name, : Yes Telehealth method: voice only Patient verbally consented to treatment: Yes Patient verbally consented to billing insurance company: Yes Patient informed of any privacy concerns related to visit: Yes Minutes spent on Phone/Video with Pt.: 15 (telephone) Coding Level of Care Code Est Pt Level 3 (57968) Diagnoses Cervical spondylosis with myelopathy M47.12 Assessment & Plan Assessment & Plan (1) Cervical spondylosis with myelopathy: Code(s): M47.12 - Other spondylosis with myelopathy, cervical region Category: Medical Plan: stable; same rx Medications: New nirmatrelvir-ritonavir 300 mg (150 mg x 2)-100 mg (Paxlovid) take TWO 150 mg tablets of nirmatrelvir with ONE 100 mg tablet of ritonavir twice daily for 5 days PO 30 tabs 0RF Refilled oxycodone 5 mg PO QID PRN 120 tabs 0RF pain M47.12 - Other spondylosis with myelopathy, cervical region
== END 2024-08-21 10:34 | disposition home or self-care (01) ==
LOC: HO.HMCH 09:34
PROVIDERS: PCP Internal Medicine; Visit Provider Internal Medicine
DX: M47.12 Other spondylosis with myelopathy, cervical region (principal)

== ENCOUNTER → 2024-08-21 09:34 | Outpatient (BNVA) | payer MEDICARE, SELFPAY | PROVIDERS: PCP Internal Medicine; Visit Provider Internal Medicine | DX: M47.12 Other spondylosis with myelopathy, cervical region (principal) | CPT/HCPCS: 99212 ==

== ENCOUNTER 2024-08-27 22:02 | Emergency (ER) | payer MEDICARE, SELFPAY ==
--- NOTE | 2024-08-27 | ECG_ITS ---
Test Reason : dizziness Blood Pressure : / mmHG Vent. Rate : 106 BPM Atrial Rate : 106 BPM P-R Int : 164 ms QRS Dur : 094 ms QT Int : 338 ms P-R-T Axes : 094 -70 058 degrees QTc Int : 448 ms Sinus tachycardia Left axis deviation Possible Lateral infarct , age undetermined Inferior infarct , age undetermined Abnormal ECG No previous ECGs available Referred By: Generic ED Physician Electronically Signed By:CHAYA CHOI MD
[2024-08-27 22:15] VITALS: BP 150/89; BP 171/93; PULSE 104; RESP 18; TEMP 37.3; O2SAT 97; O2SAT 98; BMI 24.7
[2024-08-27 23:10] LABS: MANUAL DIFF FLAG NO
[2024-08-27 23:11] LABS: Basophils Percent Auto 0.2 % (0-2); Eosinophils Absolute Auto 0.1 X10*3/uL (0.0-0.4); Eosinophils Percent Auto 0.7 % (0-4); Hematocrit 44.4 % (42.0-52.0); Hemoglobin 16.2 g/dl (14.0-18.0); Imm Gran Abs Auto 0.02 X10*3/uL (0.00-0.03); Imm Gran Pct Auto 0.2 % (0.0-0.4); Lymphocytes Absolute Auto 2.3 X10*3/uL (1.2-4.9); Lymphocytes Percent Auto 23.1 % (20-40); Mean Corpuscular HGB Conc 36.5 g/dl (31.0-36.0); Mean Corpuscular Hemoglobin 30.6 pg (27.0-33.0); Mean Corpuscular Volume 83.8 fL (80.0-98.0); Mean Platelet Volume 9.2 fL (9.4-12.4); Monocytes Absolute Auto 0.6 X10*3/uL (0.1-1.2); Monocytes Percent Auto 6.4 % (2-11); Neutrophils Absolute Auto 6.8 x10*3/uL (2.0-8.3); Neutrophils Percent Auto 69.4 % (45-73); Platelet Count 254 X10*3/uL (160-400); Red Cell Distribution Width 12.2 % (11.0-16.0); White Blood Count 9.8 X10*3/uL (4.8-10.8)
--- NOTE | 2024-08-27 23:19 | ED_ITS ---
HPI - Dizziness General Chief Complaint: Dizziness Stated Complaint: DIZZINESS INSOMNIA X 3DAYS Time Seen by Provider: 08/27/24 23:19 Source: patient Mode of arrival: EMS Limitations: no limitations History of Present Illness ED Provider: HPI Narrative: Patient with history of increased anxiety taking Ativan 1 mg twice a day for last 20 years patient is last week and patient took extra lorazepam ran out of his medication for last 4 days also had few drinks 4 days ago not eating much not able to sleep feel lightheaded when standing had vertiginous feeling 5 days ago no fall no headache currently not vomiting or having diarrhea no fever no chills Related Data Home Medications ?Medication ?Instructions ?Recorded ?Confirmed fluticasone propionate 50 1 inh inhalation BID 05/03/23 08/21/24 mcg/actuation blister powder for inhalation (Flovent Diskus) Previous Rx's ?Medication ?Instructions ?Recorded lorazepam 1 mg tablet 1 mg PO BID 28 days #56 tabs 03/30/24 hydrochlorothiazide 25 mg tablet 25 mg PO QAM #90 tabs 04/05/24 zolpidem 5 mg tablet 5 mg PO BEDTIME PRN sleep #30 tabs 07/24/24 nirmatrelvir 300 mg (150 mg See Rx Instructions PO .COMPLEX 08/21/24 x2)-ritonavir 100 mg tablet,dose #30 tabs pack (Paxlovid) oxycodone 5 mg tablet 5 mg PO QID PRN pain #120 tabs 08/21/24 lorazepam 1 mg tablet (Ativan) 1 mg PO BID PRN anxiety #5 tabs 08/28/24 potassium chloride 20 mEq 20 meq PO DAILY #14 tabs 08/28/24 tablet,extended release tobramycin 0.3 % eye drops 2 drp ophthalmic (eye) Q4H #5 mL 08/28/24 Allergies Allergy/AdvReac Type Severity Reaction Status Date / Time No Known Allergies Allergy Verified 08/27/24 22:16 [No Known Allergies*] Review of Systems 2 Review of Systems: Yes all other systems are reviewed and are negative PMFSH Past Medical History Medical History Pharyngitis Other spondylosis, cervical region Surgical History History of prostate surgery Family History Family History Father Bone cancer Mother Uterine cancer Brother No problems noted. Sister No problems noted. Social History Social History Housing: House Alcohol intake: never Patient Tobacco Use Status: Never used Tobacco Tobacco use type: Cigarette Smoked in Last 30 Days: No e-Cigarette/Vaping Use: Never Used Second Hand Smoke Exposure: No Use of substances other than those prescribed or required for medical reasons: No Advance Directives: Yes Advance Directives on File: Yes Advance Directives Date on File: 12/11/23 Do you have a plan to hurt others: No Plan service: No Current occupational status: retired Cognitive needs: No Hearing needs: No Vision needs: Yes Physical Exam 2 Vital Signs: Vital Signs: Last Vital Signs Temp 98.2 F 08/28/24 05:38 Pulse 73 08/28/24 05:38 Resp 18 08/28/24 05:38 BP 131/76 08/28/24 05:38 Pulse Ox 98 08/28/24 05:38 O2 Del Method Room Air 08/28/24 05:38 BMI result Body Mass Index 24.7 Appearance: Alert. Oriented X3. No acute distress. Anxious Eyes: PERRLA, No Nystagmus ENT: Pharynx normal Oral Mucosa dry Neck: Normal inspection. Neck supple. CVS: Normal heart rate and rhythm. Pulses normal. Respiratory: No respiratory distress. Equal air entry bilateral, no wheezing/rales/rhonchi Abdomen: Soft and nontender. Bowel sounds are present, no mass palpable, no CVA tenderness Skin: Skin warm and dry. Normal skin color. Normal skin turgor. Extremities: No lower extremity edema. No calf tenderness Neuro: Oriented X 3. No motor deficit. No sensory deficit.No cerebellar signs , cranial nerves II-XII intact Medications Administered Discontinued Medications Generic Name Dose Route Start Last Admin Trade Name Freq PRN Reason Stop Dose Admin Sodium Chloride 1,000 mls @ 999 mls/hr 08/27/24 23:33 08/28/24 00:40 Ns IV 08/28/24 00:33 Infused .Q1H1M ONE Infusion Potassium Chloride 10 meq in 100 mls @ 100 mls/hr 08/27/24 23:45 08/28/24 02:40 Potassium Chloride/H20 IV 08/28/24 01:44 Infused Q1H CRISITANO Infusion Sodium Chloride 1,000 mls @ 999 mls/hr 08/28/24 01:49 08/28/24 02:59 Ns IV 08/28/24 02:49 Infused .Q1H1M ONE Infusion Lorazepam 1 mg 08/27/24 23:32 08/27/24 23:37 Lorazepam 1 Mg Tablet PO 08/27/24 23:33 1 mg ONCE ONE Administration Potassium Bicarbonate 50 meq 08/27/24 23:33 08/27/24 23:38 Potassium Bicarbonate/Cit Ac 25 Meq Tablet.Eff PO 08/27/24 23:34 50 meq ONCE ONE Administration Potassium Bicarbonate 50 meq 08/28/24 04:08 08/28/24 04:46 Potassium Bicarbonate/Cit Ac 25 Meq Tablet.Eff PO 08/28/24 04:09 50 meq ONCE ONE Administration Tobramycin Sulfate 2 drop 08/28/24 03:22 08/28/24 04:46 Tobramycin Sulfate 0.3% Giuliana Op 5 Ml Btl EYE-RIGHT 08/28/24 03:23 Not Given ONCE ONE Medical Decision Making Medical Decision Making [facility] Narrative: Patient with benign positional vertigo with volume loss with severe anxiety noticed to have hypokalemia without any EKG changes received IV potassium and p.o. potassium patient advised did drink plenty of fluids and have food containing high potassium follow with PCP patient's potassium improved on 2.8- 3.1 received another 50 mg of potassium after that Differential Diagnosis Differential Diagnoses: The differential diagnosis associated with the presentation includes Lab Data [facility] Lab Attestation statement: I reviewed the patient's lab results. 08/27/24 23:04 08/28/24 03:16 Labs: Lab Results 08/27/24 08/28/24 Range/Units 23:04 03:16 WBC 9.8 (4.8-10.8) X10*3/uL RBC 5.30 (4.60-5.80) X10*6/uL Hgb 16.2 (14.0-18.0) g/dl Hct 44.4 (42.0-52.0) % MCV 83.8 (80.0-98.0) fL MCH 30.6 (27.0-33.0) pg MCHC 36.5 H (31.0-36.0) g/dl RDW 12.2 (11.0-16.0) % Plt Count 254 (160-400) X10*3/uL MPV 9.2 L (9.4-12.4) fL Immature Gran % (Auto) 0.2 (0.0-0.4) % Neut % (Auto) 69.4 (45-73) % Lymph % (Auto) 23.1 (20-40) % [place] % (Auto) 6.4 (2-11) % Eos % (Auto) 0.7 (0-4) % Baso % (Auto) 0.2 (0-2) % Lymph # (Auto) 2.3 (1.2-4.9) X10*3/uL [place] # (Auto) 0.6 (0.1-1.2) X10*3/uL Eos # (Auto) 0.1 (0.0-0.4) X10*3/uL Baso # (Auto) 0.0 (0.0-0.2) X10*3/uL Abs Immat Gran (auto) 0.02 (0.00-0.03) X10*3/uL Absolute Neuts (auto) 6.8 (2.0-8.3) x10*3/uL Absolute Nucleated RBC 0.000 (0.0-0.012) X10*3/uL Nucleated RBC % (auto) 0.0 (0.0-0.2) /100WBC Sodium 140 142 (135-145) mmol/L Potassium 2.8 L* 3.1 L (3.3-5.1) mmol/L Chloride 100 104 (96-108) mmol/L Carbon Dioxide 31 H 29 (22-29) mmol/L Anion Gap 12 12 (12-20) BUN 12 (9-16) mg/dL Creatinine 0.89 (0.5-1.4) mg/dL Estim Creat Clear Calc 80.4 Estimated GFR > 60 Random Glucose 123 H (60-115) mg/dL Calcium 9.3 (8.4-10.2) mg/dL Magnesium 2.4 (1.6-2.6) mg/dL Total Bilirubin 1.6 H (0.0-1.0) mg/dL AST 35 (5-37) U/L ALT 54 H (0-40) U/L Alkaline Phosphatase 71 (39-117) U/L Total Protein 7.9 (6.5-8.0) g/dL Albumin 4.3 (3.5-5.0) g/dL Independent Interpretation I performed an independent interpretation of an: EKG Interpretation: Sinus tachycardia heart rate 106 beats per minute left axis deviation no acute STT wave changes no acute ischemia impression normal EKG Critical Care Time Critical Care Time Critical Care Time: Yes Total Critical Care Time: 55 Attestation: The patient was critically ill with a high probability of imminent or life threatening deterioration. I spent greater than ?60??minutes of discontinuous time evaluating the patient,delivering critical care at the bedside, discussing and evaluating pertinent data with consultants. Critical care time does not include time spent performing separately billable procedures or teaching. Total time spent performing critical care was 55???minutes. Discharge Plan Discharge Clinical Impression: Anxiety, Acute hypokalemia, Conjunctivitis Patient Disposition: Home, Self-Care Instructions: Potassium Content of Foods List (ED), Hypokalemia (ED), Anxiety (ED), Conjunctivitis (ED) Additional Instructions: Drink plenty of fluids Have food containing high potassium like bananas/orange juice Start taking potassium tablets daily Follow up with PCP in 1 week to recheck potassium level Eyedrops as advised Take your Ambien as prescribed by your PCP Prescriptions: New potassium chloride 20 mEq tablet extended release 20 meq PO DAILY Qty: 14 0RF tobramycin 0.3 % drops 2 drp ophthalmic (eye) Q4H Qty: 5 0RF lorazepam [Ativan] 1 mg tablet 1 mg PO BID PRN (Reason: anxiety) Qty: 5 0RF No Action lorazepam 1 mg tablet 1 mg PO BID 28 Days Qty: 56 5RF hydrochlorothiazide 25 mg tablet 25 mg PO QAM Qty: 90 8RF zolpidem 5 mg tablet 5 mg PO BEDTIME PRN (Reason: sleep) Qty: 30 4RF Flovent Diskus 50 mcg/actuation blister with device 1 inh inhalation BID oxycodone 5 mg tablet 5 mg PO QID PRN (Reason: pain) Qty: 120 0RF Paxlovid 300 mg (150 mg x 2)-100 mg tablets,dose pack See Rx Instructions PO .COMPLEX Qty: 30 0RF Rx Instructions: take TWO 150 mg tablets of nirmatrelvir with ONE 100 mg tablet of ritonavir twice daily for 5 days PO Interventions: ED Discharge Assessment Last Done: 08/28/24 05:38 Discharge Date/Time: 08/28/24 05:39 Print Language: Luxembourgish
--- NOTE | 2024-08-27 23:21 | PC.NURSE ---
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 PT drank 1/5th vodka in two days and tripled use of ativan from twice a day to 6 in a day for three days. PT has a reddened right eye that is draining clear liquid
[2024-08-27 23:35] LABS: Alanine Aminotransferase 54 U/L (0-40); Albumin Level 4.3 g/dL (3.5-5.0); Alkaline Phosphatase 71 U/L (39-117); Anion Gap 12 (12-20); Aspartate Amino Transferase 35 U/L (5-37); Bilirubin Total 1.6 mg/dL (0.0-1.0); Blood Urea Nitrogen 12 mg/dL (9-16); Calcium 9.3 mg/dL (8.4-10.2); Carbon Dioxide 31 mmol/L (22-29); Chloride 100 mmol/L (96-108); Creatinine Clr Calc Pharmacy 80.4; Estimated Glomerular Filt Rate > 60; Glucose Random 123 mg/dL (60-115); Potassium 2.8 mmol/L (3.3-5.1); Sodium 140 mmol/L (135-145); Total Protein 7.9 g/dL (6.5-8.0)
[2024-08-27] MEDS: 0.9 % Sodium Chloride 1,000 ML 999 ML IV (23:37)
[2024-08-27] MEDS: LORazepam 1 MG TABLET PO (23:37)
[2024-08-27] MEDS: Potassium Bicarbonate/Cit AC 25 MEQ TABLET.EFF 50 MEQ PO (23:38)
[2024-08-27 23:47] LABS: Magnesium 2.4 mg/dL (1.6-2.6)
[2024-08-28] MEDS: Potassium Chloride/H20 10 MEQ/100 ML PIGGYBACK 100 MEQ IV ×2 (00:24→01:36)
[2024-08-28] MEDS: 0.9 % Sodium Chloride 1,000 ML 999 ML IV (01:50)
[2024-08-28 03:41] LABS: Anion Gap 12 (12-20); Carbon Dioxide 29 mmol/L (22-29); Chloride 104 mmol/L (96-108); Potassium 3.1 mmol/L (3.3-5.1); Sodium 142 mmol/L (135-145)
[2024-08-28 04:42] VITALS: BP 131/76; PULSE 73; RESP 18; TEMP 36.8; O2SAT 98
[2024-08-28] MEDS: Potassium Bicarbonate/Cit AC 25 MEQ TABLET.EFF 50 MEQ PO (04:46)
[2024-08-28 05:38] VITALS: BP 131/76; PULSE 73; RESP 18; TEMP 36.8; O2SAT 98
== END 2024-08-28 05:39 | disposition home or self-care (01) ==
PROVIDERS: Emergency Provider Internal Medicine; PCP Internal Medicine
DX: F41.9 Anxiety disorder, unspecified (principal); E87.6 Hypokalemia; H10.9 Unspecified conjunctivitis; I10 Essential (primary) hypertension; Z79.899 Other long term (current) drug therapy
CPT/HCPCS: 36415; 80051; 80053; 83735; 85025; 93005; 96361; 96365; 96366; 99285; J3480

== ENCOUNTER → 2024-08-27 22:21 | Outpatient (BNV) | payer MEDICARE, SELFPAY | PROVIDERS: Emergency Provider Internal Medicine; PCP Internal Medicine; Visit Provider Internal Medicine Cardiovascular Disease | DX: R42 Dizziness and giddiness (principal); I44.4 Left anterior fascicular block; R94.31 Abnormal electrocardiogram [ECG] [EKG] | CPT/HCPCS: 93010 ==

== ENCOUNTER 2024-08-31 17:31 | Emergency (ER) | payer MEDICARE, SELFPAY ==
[2024-08-31 17:37] VITALS: BP 165/94; PULSE 92; RESP 18; TEMP 37.1; O2SAT 98; BMI 24.7
--- NOTE | 2024-08-31 17:37 | ED.GENADULT ---
HPI - General Adult General Chief complaint: Dizziness Stated complaint: Lightheaded/numbness Time Seen by Provider: 08/31/24 21:02 History of Present Illness ED Provider: Sean CONTRERAS narrative: The patient is a retired 79-year-old male who has been on long-term oxycodone and also lorazepam. He says that on a typical day he takes 2 mg of lorazepam. The patient says that about 2 weeks ago his 62-year-old niece of breast cancer and [facility] feel very [facility]. He drank heavily for 2 days for the 1st time in 12 years. Also says that he used additional lorazepam during those 2 days. He says that he 6-8 lorazepam tablets each day during those 2 days. Because of this he therefore ran out of his lorazepam early. He is next due for his usual lorazepam on September 05. He came to the emergency room 4 days ago feeling unwell. He said that he felt very dizzy and anxious. He was treated in the emergency room for some mild hypokalemia. He was given a dose of lorazepam. He was given a prescription for 5 days of lorazepam but fill this at his pharmacy he was told that insurance would not cover it until September 05. He was not given the option of paying for it himself. He was therefore not had any lorazepam since his emergency room visit. He has continued to feel anxious and dizzy and returns to the emergency room tonight. Feels anxious and is worried he has lost weight and that something is wrong with him. Related Data Home Medications ?Medication ?Instructions ?Recorded ?Confirmed fluticasone propionate 50 1 inh inhalation BID 05/03/23 08/21/24 mcg/actuation blister powder for inhalation (Flovent Diskus) Previous Rx's ?Medication ?Instructions ?Recorded hydrochlorothiazide 25 mg tablet 25 mg PO QAM #90 tabs 04/05/24 zolpidem 5 mg tablet 5 mg PO BEDTIME PRN sleep #30 tabs 07/24/24 nirmatrelvir 300 mg (150 mg See Rx Instructions PO .COMPLEX 08/21/24 x2)-ritonavir 100 mg tablet,dose #30 tabs pack (Paxlovid) oxycodone 5 mg tablet 5 mg PO QID PRN pain #120 tabs 08/21/24 lorazepam 1 mg tablet (Ativan) 1 mg PO BID PRN anxiety #5 tabs 08/28/24 potassium chloride 20 mEq 20 meq PO DAILY #14 tabs 08/28/24 tablet,extended release tobramycin 0.3 % eye drops 2 drp ophthalmic (eye) Q4H #5 mL 08/28/24 lorazepam 1 mg tablet 1 mg PO BID 28 days #56 tabs 08/31/24 Allergies Allergy/AdvReac Type Severity Reaction Status Date / Time No Known Allergies Allergy Verified 08/31/24 17:39 [No Known Allergies*] Review of Systems Review of Systems: Yes all other systems are reviewed and are negative [facility] Past Medical History Medical History Pharyngitis Other spondylosis, cervical region Surgical History History of prostate surgery Family History Family History Father Bone cancer Mother Uterine cancer Brother No problems noted. Sister No problems noted. Social History Social History Housing: House Alcohol intake: former Patient Tobacco Use Status: Never used Tobacco Tobacco use type: Cigarette Smoked in Last 30 Days: No e-Cigarette/Vaping Use: Never Used Second Hand Smoke Exposure: No Use of substances other than those prescribed or required for medical reasons: No Advance Directives: Yes Advance Directives on File: Yes Advance Directives Date on File: 12/11/23 Do you have a plan to hurt others: No Plan service: No Current occupational status: retired Cognitive needs: No Hearing needs: No Vision needs: Yes Physical Exam ED Vital Signs: Vital Signs - 24 hr 08/31/24 17:37 08/31/24 21:50 08/31/24 22:46 Temperature 98.8 F 98.2 F 98.2 F Pulse Rate 92 76 76 Respiratory Rate 18 20 20 Blood Pressure 165/94 H 159/93 H 159/93 H Pulse Oximetry 98 97 97 Oxygen Delivery Method Room Air Room Air Room Air BMI result Body Mass Index 24.7 Const Other: The patient is a 79-year-old male who was awake and alert. He has an anxious affect but does not seem in acute distress. HENMT Other: Face is symmetrical. Mucous membranes moist. Eyes Other: Pupils are midsize and reactive to light. Extraocular movements are intact. No nystagmus. Conjunctivae clear. Neck Neck: Yes full ROM Resp Effort & Inspection: normal respiratory effort Auscultation: clear to auscultation bilaterally Cardio Rate: regular rate Rhythm: regular rhythm Heart sounds: S1 normal heart sound present and S2 normal heart sound present GI Other: Abdomen is soft and nontender Skin Other: Skin is dry and unremarkable Neuro Other: The patient is awake and alert with a normal mental status. Pupils are round equal and reactive. Extraocular movements are intact. No nystagmus. Face is symmetrical. Speech is clear. He moves his extremities normally. Gait is steady. He seems neurologically intact. Extrem Other: No peripheral edema Course Course Course Narrative: This is an RME done by [facility] Art: Additional HPI, ROS, PE not included below will be deferred to primary provider. 79 year old male presents w/ tremors, lightheaded and concerns that his K is low since last night. Reports he has LE numbness and tingling. He is concerned his labs may be off. PE- patient appears anxious UE resting tremors Medications Administered Discontinued Medications Generic Name Dose Route Start Last Admin Trade Name Adeline PRN Reason Stop Dose Admin Lorazepam 1 mg 08/31/24 21:29 08/31/24 21:56 Lorazepam 1 Mg Tablet PO 08/31/24 21:30 1 mg ONCE ONE Administration Medical Decision Making Medical Decision Making [facility] Narrative: The patient is a 79-year-old male who presents with complaints of lightheadedness and dizziness. He is normally on lorazepam and oxycodone. It seems as though about a week and a half ago he overused his lorazepam and ran out of it prematurely. He was seen here 4 days ago with similar complaints. He was given lorazepam and discharged with a prescription for 5 lorazepam tablets but he could not fill this prescription, or at least his insurance would not pay for it (he did not offer to pay out of pocket). Clinically the patient looks stable. Labs were unremarkable. He felt better after 1 mg of oral lorazepam here. The patient does not seem to have any other acute medical or psychiatric emergency. The patient will be discharged to contact his pharmacy in his PCP to see if there is any way he can early before his next expected prescription. Lab Data 08/31/24 18:07 08/31/24 18:08 Labs: Lab Results 08/31/24 08/31/24 08/31/24 Range/Units 18:07 18:08 22:12 WBC 7.7 (4.8-10.8) X10*3/uL RBC 5.32 (4.60-5.80) X10*6/uL Hgb 15.9 (14.0-18.0) g/dl Hct 46.9 (42.0-52.0) % MCV 88.2 (80.0-98.0) fL MCH 29.9 (27.0-33.0) pg MCHC 33.9 (31.0-36.0) g/dl RDW 12.1 (11.0-16.0) % Plt Count 256 (160-400) X10*3/uL MPV 9.2 L (9.4-12.4) fL Immature Gran % (Auto) 0.1 (0.0-0.4) % Neut % (Auto) 57.4 (45-73) % Lymph % (Auto) 35.6 (20-40) % [place] % (Auto) 5.6 (2-11) % Eos % (Auto) 1.0 (0-4) % Baso % (Auto) 0.3 (0-2) % Lymph # (Auto) 2.7 (1.2-4.9) X10*3/uL [place] # (Auto) 0.4 (0.1-1.2) X10*3/uL Eos # (Auto) 0.1 (0.0-0.4) X10*3/uL Baso # (Auto) 0.0 (0.0-0.2) X10*3/uL Abs Immat Gran (auto) 0.01 (0.00-0.03) X10*3/uL Absolute Neuts (auto) 4.4 (2.0-8.3) x10*3/uL Absolute Nucleated RBC 0.000 (0.0-0.012) X10*3/uL Nucleated RBC % (auto) 0.0 (0.0-0.2) /100WBC Sodium 139 (135-145) mmol/L Potassium 4.6 D (3.3-5.1) mmol/L Chloride 104 (96-108) mmol/L Carbon Dioxide 29 (22-29) mmol/L Anion Gap 11 L (12-20) BUN 10 (9-16) mg/dL Creatinine 0.88 (0.5-1.4) mg/dL Estim Creat Clear Calc 81.3 Estimated GFR > 60 Random Glucose 113 (60-115) mg/dL Calcium 9.0 (8.4-10.2) mg/dL Phosphorus 3.1 (2.7-4.5) mg/dL Magnesium 2.5 (1.6-2.6) mg/dL Total Bilirubin 1.1 H (0.0-1.0) mg/dL Direct Bilirubin 0.3 (0.0-0.5) mg/dL AST 22 (5-37) U/L ALT 34 (0-40) U/L Alkaline Phosphatase 78 (39-117) U/L Total Creatine Kinase 74 (38-174) U/L Troponin I High Sens < 2.7 (<3.5-35.0) ng/L Total Protein 8.1 H (6.5-8.0) g/dL Albumin 4.4 (3.5-5.0) g/dL Lipase 19 (8-78) U/L Urine Color Yellow Urine Appearance Clear Urine pH 6.0 (5.0-9.0) Ur Specific [place] 1.015 (1.005-1.025) Urine Protein Negative (Neg-Trace) mg/dL Urine Glucose (UA) Negative (Negative) mg/dL Urine Ketones Negative (Negative) mg/dL Urine Blood Negative (Negative) Urine Nitrite Negative (Negative) Ur Leukocyte Esterase Trace H (Negative) Urine RBC 0-2 (0-2) /HPF Urine WBC 0-5 (0-5) /HPF Ur Squamous Epith Cells 0-2 (0-2) /HPF Urine Bacteria None Seen (None Seen) Hyaline Casts 0-2 (0-2) /LPF Ethyl Alcohol < 10 mg/dL Discharge Plan Discharge Clinical Impression: Dizziness Patient Disposition: Home, Self-Care Additional Instructions: I would recommend confirming with your pharmacy that you cannot pay [id number] for the 5 tablets that were previously prescribed for you. If the pharmacy says that they still cannot fill the prescription then I think you need to speak to Dr. Arteaga to see if he can have any influence with the pharmacist with a getting you some additional early. Keep your appointment on Saturday with Dr. Burgos. Return to the emergency room if you are significantly worse. Prescriptions: No Action hydrochlorothiazide 25 mg tablet 25 mg PO QAM Qty: 90 8RF zolpidem 5 mg tablet 5 mg PO BEDTIME PRN (Reason: sleep) Qty: 30 4RF lorazepam 1 mg tablet 1 mg PO BID 28 Days Qty: 56 3RF potassium chloride 20 mEq tablet extended release 20 meq PO DAILY Qty: 14 0RF tobramycin 0.3 % drops 2 drp ophthalmic (eye) Q4H Qty: 5 0RF lorazepam [Ativan] 1 mg tablet 1 mg PO BID PRN (Reason: anxiety) Qty: 5 0RF Flovent Diskus 50 mcg/actuation blister with device 1 inh inhalation BID oxycodone 5 mg tablet 5 mg PO QID PRN (Reason: pain) Qty: 120 0RF Paxlovid 300 mg (150 mg x 2)-100 mg tablets,dose pack See Rx Instructions PO .COMPLEX Qty: 30 0RF Rx Instructions: take TWO 150 mg tablets of nirmatrelvir with ONE 100 mg tablet of ritonavir twice daily for 5 days PO Interventions: ED Discharge Assessment Last Done: 08/31/24 22:46 Discharge Date/Time: 08/31/24 22:46 Print Language: Malay
--- NOTE | 2024-08-31 17:38 | ECG_ITS ---
Test Reason : DIZZNESS Blood Pressure : / mmHG Vent. 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
[2024-08-31 18:17] LABS: MANUAL DIFF FLAG NO
[2024-08-31 18:22] LABS: Basophils Percent Auto 0.3 % (0-2); Eosinophils Absolute Auto 0.1 X10*3/uL (0.0-0.4); Hematocrit 46.9 % (42.0-52.0); Hemoglobin 15.9 g/dl (14.0-18.0); Imm Gran Abs Auto 0.01 X10*3/uL (0.00-0.03); Imm Gran Pct Auto 0.1 % (0.0-0.4); Lymphocytes Absolute Auto 2.7 X10*3/uL (1.2-4.9); Lymphocytes Percent Auto 35.6 % (20-40); Mean Corpuscular HGB Conc 33.9 g/dl (31.0-36.0); Mean Corpuscular Hemoglobin 29.9 pg (27.0-33.0); Mean Corpuscular Volume 88.2 fL (80.0-98.0); Mean Platelet Volume 9.2 fL (9.4-12.4); Monocytes Absolute Auto 0.4 X10*3/uL (0.1-1.2); Monocytes Percent Auto 5.6 % (2-11); Neutrophils Absolute Auto 4.4 x10*3/uL (2.0-8.3); Neutrophils Percent Auto 57.4 % (45-73); Platelet Count 256 X10*3/uL (160-400); Red Blood Count 5.32 X10*6/uL (4.60-5.80); Red Cell Distribution Width 12.1 % (11.0-16.0); White Blood Count 7.7 X10*3/uL (4.8-10.8)
[2024-08-31 18:47] LABS: Alanine Aminotransferase 34 U/L (0-40); Albumin Level 4.4 g/dL (3.5-5.0); Alkaline Phosphatase 78 U/L (39-117); Anion Gap 11 (12-20); Aspartate Amino Transferase 22 U/L (5-37); Bilirubin Total 1.1 mg/dL (0.0-1.0); Blood Urea Nitrogen 10 mg/dL (9-16); Carbon Dioxide 29 mmol/L (22-29); Chloride 104 mmol/L (96-108); Creatinine Clr Calc Pharmacy 81.3; Estimated Glomerular Filt Rate > 60; Glucose Random 113 mg/dL (60-115); Lipase 19 U/L (8-78); Magnesium 2.5 mg/dL (1.6-2.6); Phosphorus 3.1 mg/dL (2.7-4.5); Potassium 4.6 mmol/L (3.3-5.1); Sodium 139 mmol/L (135-145); Total Protein 8.1 g/dL (6.5-8.0)
[2024-08-31 18:49] LABS: Ethanol < 10 mg/dL
[2024-08-31 18:57] LABS: Troponin-I High Sensitivity < 2.7 ng/L (<3.5-35.0)
[2024-08-31 21:49] LABS: Bilirubin Direct 0.3 mg/dL (0.0-0.5)
[2024-08-31 21:50] VITALS: BP 159/93; PULSE 76; RESP 20; TEMP 36.8; O2SAT 97
[2024-08-31] MEDS: LORazepam 1 MG TABLET PO (21:56)
[2024-08-31 22:20] LABS: Appearance Urine Clear; Color Urine Yellow; Glucose Urine UA Negative (Negative); Leukocyte Esterase Urine Trace (Negative); Nitrite Urine Negative (Negative); Specific Gravity - Urine 1.015 (1.005-1.025); UMIC TRIGGER UACC YES; Urine Blood Negative (Negative); Urine Ketones Negative (Negative); Urine Protein Negative (Neg-Trace)
[2024-08-31 22:22] LABS: Bacteria Urine None Seen (None Seen); Hyaline Casts Urine 0-2 /LPF (0-2); RBC Urine 0-2 /HPF (0-2); Squamous Epithelial Cell Urine 0-2 /HPF (0-2); WBC Urine 0-5 /HPF (0-5)
[2024-08-31 22:46] VITALS: BP 159/93; PULSE 76; RESP 20; TEMP 36.8; O2SAT 97
== END 2024-08-31 22:46 | disposition home or self-care (01) ==
PROVIDERS: Physician Assistant; Emergency Provider Emergency Medicine; PCP Internal Medicine
DX: R42 Dizziness and giddiness (principal); R20.0 Anesthesia of skin; R94.31 Abnormal electrocardiogram [ECG] [EKG]; Z51.81 Encounter for therapeutic drug level monitoring; Z79.899 Other long term (current) drug therapy
CPT/HCPCS: 36415; 80053; 80307; 81001; 82248; 82550; 83690; 83735; 84100; 84484; 85025; 93005; 99283; 99284

== ENCOUNTER → 2024-08-31 17:38 | Outpatient (BNV) | payer MEDICARE, SELFPAY | PROVIDERS: Emergency Provider Emergency Medicine; PCP Internal Medicine; Visit Provider Internal Medicine | DX: R42 Dizziness and giddiness (principal); R94.31 Abnormal electrocardiogram [ECG] [EKG] | CPT/HCPCS: 93010 ==

== ENCOUNTER 2024-09-04 09:22 | Outpatient (AMB) | payer MEDICARE, SELFPAY ==
[2024-09-04 09:30] VITALS: BP 144/90; PULSE 81; O2SAT 98; BMI 24.2
--- NOTE | 2024-09-04 09:30 | MHC.PC.OV ---
Vital Signs 09/04/24 09:30 Height 6 ft 3 in Weight 193 lb 4 oz BMI 24.2 BP 144/90 H Blood Pressure Location Lt brachial Position Sitting Pulse 81 Pulse Source Pulse Oximeter Pulse Oximetry (%) 98 Oxygen Delivery Method Room Air Int[place] [facility] [place] Allergies No Known Allergies [No Known Allergies*] Allergy (Verified 09/04/24 09:32) Medication List - Last Reconciled 09/04/24 by Jake Burgos MD fluticasone propionate 50 mcg/actuation (Flovent Diskus) 1 inh inhalation BID hydrochlorothiazide 25 mg PO QAM lorazepam (Ativan) 1 mg PO BID PRN lorazepam 1 mg PO BID 28 days oxycodone 5 mg PO QID PRN potassium chloride ER 20 mEq PO DAILY tobramycin 0.3% 2 drps ophthalmic (eye) Q4H zolpidem 5 mg PO BEDTIME PRN Tobacco use date assessed: 09/04/24 Fall risk assessment: No Falls in past year Last assessed Fall Risk: 09/04/24 Dental Screening Dental Screen Date: 09/04/24 Did you have a dental visit in the last 12 months?: Yes Did you have a dental problem in the last 6 months where you did not have access to dental care?: No Was dental information given to patient?: Patient has dentist [place] [facility] [place] light headed HPI Details er visits for vertigo PFSH Medical History Pharyngitis Other spondylosis, cervical region Surgical History History of prostate surgery Family History Father Bone cancer Mother Uterine cancer Brother No problems noted. Sister No problems noted. Social History Housing: House Alcohol intake: former Patient Tobacco Use Status: Never used Tobacco Tobacco use type: Cigarette e-Cigarette/Vaping Use: Never Used Second Hand Smoke Exposure: No Advance Directives Date on File: 12/11/23 service: No Current occupational status: retired Cognitive needs: No Hearing needs: No Vision needs: Yes Questionnaire PHQ-9 Over the last 2 weeks, how often have you been bothered by any of the following problems? 1. Little interest or pleasure in doing things: not at all 2. Feeling down, depressed, or hopeless: more than half the days 3. Trouble falling or staying asleep, or sleeping too much: more than half the days 4. Feeling tired or having little energy: more than half the days 5. Poor appetite or overeating: several days 6. Feeling bad about yourself - or that you are a failure or have let yourself or your family down: more than half the days 7. Trouble concentrating on things, such as reading the newspaper or watching television: not at all 8. Moving or speaking so slowly that other people could have noticed. Or the opposite - being so fidgety or restless that you have been moving around a lot more than usual: more than half the days 9. Thoughts that you would be better off or of hurting yourself in some way: not at all Total score: 11 Depression Screening Interpretation: Positive Depression Screening Done: Yes 32257 - PHQ-9 Billing: Yes Source: Developed by Drs. José Antonio Holloway, Martha Castillo, Daniel Ramos and colleagues, with an educational rosa from [employer]. Thrive Questionnaire Date Thrive assessed: 09/04/24 I am a: Patient What is your living situation today?: I have a steady place to live Within the past 12 months, did the food you bought not last and you didn't have the money to get more?: Never true Within the past 12 months, did you worry whether your food would run out before you got money to buy more?: Never true Do you have trouble paying for medicines?: No Do you have trouble getting transportation to medical appointments?: No Do you have trouble paying your heating and electricity bill?: No Do you have trouble taking care of your child, family member or friend?: No Do you have trouble with day-to-day activities such as bathing, preparing meals, shopping, managing finances, etc.?: No Are you currently unemployed and looking for a job?: No Are you interested in more education?: No Please select the resources that you would like help with: None THRIVE Score: 0 AUDIT C Alcohol Use Questionnaire (AUDIT-C) 1. How often do you have a drink containing alcohol?: Never 3. How often do you have six or more drinks on one occasion?: Never Total Score: 0 DEBO-7 AMB Questionnaire DEBO-7 Date DEBO - 7 assessed: 10/14/23 Feeling nervous, anxious, or on edge: 0 = Not at all Not being able to stop or control worryin = Not at all Worrying too much about different things: 0 = Not at all Trouble relaxin = Not at all Being so restless that it is hard to sit still: 0 = Not at all Becoming easily annoyed or irritable: 0 = Not at all Feeling afraid as if something awful might happen: 0 = Not at all Total DEBO-7 score (0-4 normal; 5-9 mild; 10-14 moderate; 15-21 severe): 0 Source: Developed by Drs. José Antonio Holloway, Martha Castillo, Daniel Ramos and colleagues, with an educational rosa from [employer]. DEBO-7 Assessment Billing DEBO-7 Assessment Tool: DEBO-7 Assessment 57454 Review of Systems Const Denies chills, Denies headache(s) and Denies weight loss ENT Denies headache(s) Card Denies chest pain, Denies syncope, Denies irregular heart rhythm and Denies dyspnea Resp Denies chest congestion, Denies cough and Denies dyspnea GI Denies abdominal pain, Denies change in stool character, Denies nausea and Denies vomiting Musc Denies deformity and Denies joint swelling Neuro Denies syncope and Denies headache(s) Physical exam (Primary Care) Vital Signs: Last Vital Signs Pulse 81 09/04/24 09:30 BP 144/90 H 09/04/24 09:30 Pulse Ox 98 09/04/24 09:30 Oxygen Delivery Method Room Air 09/04/24 09:30 BMI result Body Mass Index 24.2 Tobacco/Smoking Status: Tobacco use Status Tobacco use date assessed 09/04/24 09/04/24 09:37 Patient Tobacco Use Status Never used Tobacco 09/04/24 09:37 Tobacco use type Cigarette 09/04/24 09:37 e-Cigarette/Vaping Use Never Used 09/04/24 09:37 PHQ-9: PHQ-9 Score PHQ-9: Total score 11 09/04/24 09:37 Depression Screening Interpretation: Positive Thrive Assessment: Date of Thrive Assessment Date Thrive assessed 09/04/24 09/04/24 09:37 Const General: cooperative, comfortable, no acute distress and alert Neck Neck: Yes no lymphadenopathy Thyroid: Thyroid normal Resp Effort & Inspection: normal respiratory effort Auscultation: clear to auscultation bilaterally Percussion: percussion normal Cardio Jugular venous distension: no JVD Palpation: normal PMI Rate: regular rate Rhythm: regular rhythm Heart sounds: S1 normal heart sound present and S2 normal heart sound present GI Inspection: Yes normal to inspection Palpation (GI): No hepatosplenomegaly present Skin General skin exam: no rashes or lesions noted Extrem General: Yes no clubbing, cyanosis or edema Coding Level of Care Code Est Pt Level 3 (82510) Diagnoses Vertigo R42 Additional Codes DEBO-7 Assessment Billing - DEBO-7 Assessment Tool: DEBO-7 Assessment 32104 ([id number]) PHQ-9 - 89919 - PHQ-9 Billing: Yes ([id number]) Assessment & Plan Assessment & Plan (1) Vertigo: Code(s): R42 - Dizziness and giddiness Plan: rx sent Medications: New meclizine 25 mg PO QID PRN 30 tabs 2RF dizziness Refilled lorazepam 1 mg PO BID 28 days 56 tabs 3RF M47.12 - Other spondylosis with myelopathy, cervical region
== END 2024-09-04 10:32 | disposition home or self-care (01) ==
PROVIDERS: PCP Internal Medicine; Visit Provider Internal Medicine
DX: R42 Dizziness and giddiness (principal)

== ENCOUNTER → 2024-09-04 09:22 | Outpatient (BNVA) | payer MEDICARE, SELFPAY | PROVIDERS: PCP Internal Medicine; Visit Provider Internal Medicine | DX: R42 Dizziness and giddiness (principal); M47.12 Other spondylosis with myelopathy, cervical region | CPT/HCPCS: 96127; 99212 ==

== ENCOUNTER 2024-09-18 10:13 | Outpatient (AMB) | payer MEDICARE, SELFPAY ==
--- NOTE | 2024-09-18 10:23 | MHC.PC.OV ---
Vital Signs 09/18/24 10:25 Height 6 ft 3 in Weight 200 lb 8 oz BMI 25.1 BP 130/76 Blood Pressure Location Lt brachial Position Sitting Pulse 75 Pulse Source Pulse Oximeter Pulse Oximetry (%) 100 Oxygen Delivery Method Room Air Intake Visit Reasons: Med management Intake Note: Patient is here to follow up on Med management. Armhole Baster Jumpbasting Required: No Enterprise Security Architect: Not Required per policy Accompanied by: Self / Same As Patient Allergies No Known Allergies [No Known Allergies*] Allergy (Verified 09/18/24 10:24) Medication List - Last Reconciled 09/18/24 by Jake Burgos MD fluticasone propionate 50 mcg/actuation (Flovent Diskus) 1 inh inhalation BID hydrochlorothiazide 25 mg PO QAM lorazepam (Ativan) 1 mg PO BID PRN lorazepam 1 mg PO BID 28 days meclizine 25 mg PO QID PRN oxycodone 5 mg PO QID PRN potassium chloride ER 20 mEq PO DAILY tobramycin 0.3% 2 drps ophthalmic (eye) Q4H zolpidem 5 mg PO BEDTIME PRN Tobacco use date assessed: 09/18/24 Fall risk assessment: No Falls in past year Last assessed Fall Risk: 09/18/24 Dental Screening Dental Screen Date: 09/18/24 Did you have a dental visit in the last 12 months?: Yes Did you have a dental problem in the last 6 months where you did not have access to dental care?: No Was dental information given to patient?: Patient has dentist HPI Med management HPI Details cervical spondylosis; stable on rx; PFSH Medical History Pharyngitis Other spondylosis, cervical region Surgical History History of prostate surgery Family History Father Bone cancer Mother Uterine cancer Brother No problems noted. Sister No problems noted. Social History Housing: House Alcohol intake: former Patient Tobacco Use Status: Never used Tobacco Tobacco use type: Cigarette e-Cigarette/Vaping Use: Never Used Second Hand Smoke Exposure: No Advance Directives Date on File: 12/11/23 service: No Current occupational status: retired Cognitive needs: No Hearing needs: No Vision needs: Yes Questionnaire PHQ-9 Over the last 2 weeks, how often have you been bothered by any of the following problems? 1. Little interest or pleasure in doing things: not at all 2. Feeling down, depressed, or hopeless: more than half the days 3. Trouble falling or staying asleep, or sleeping too much: more than half the days 4. Feeling tired or having little energy: more than half the days 5. Poor appetite or overeating: several days 6. Feeling bad about yourself - or that you are a failure or have let yourself or your family down: more than half the days 7. Trouble concentrating on things, such as reading the newspaper or watching television: not at all 8. Moving or speaking so slowly that other people could have noticed. Or the opposite - being so fidgety or restless that you have been moving around a lot more than usual: more than half the days 9. Thoughts that you would be better off or of hurting yourself in some way: not at all Total score: 11 Depression Screening Interpretation: Positive Depression Screening Done: Yes 99043 - PHQ-9 Billing: Yes Source: Developed by Drs. José Antonio Holloway, Martha Castillo, Daniel Ramos and colleagues, with an educational rosa from [employer]. Thrive Questionnaire Date Thrive assessed: 09/18/24 I am a: Patient What is your living situation today?: I have a steady place to live Within the past 12 months, did the food you bought not last and you didn't have the money to get more?: Never true Within the past 12 months, did you worry whether your food would run out before you got money to buy more?: Never true Do you have trouble paying for medicines?: No Do you have trouble getting transportation to medical appointments?: No Do you have trouble paying your heating and electricity bill?: No Do you have trouble taking care of your child, family member or friend?: No Do you have trouble with day-to-day activities such as bathing, preparing meals, shopping, managing finances, etc.?: No Are you currently unemployed and looking for a job?: No Are you interested in more education?: No Currently or been in a relationship where the following occur: No concerns reported THRIVE Score: 0 AUDIT C Alcohol Use Questionnaire (AUDIT-C) 1. How often do you have a drink containing alcohol?: Never Total Score: 0 DEBO-7 AMB Questionnaire DEBO-7 Date DEBO - 7 assessed: 09/18/24 Feeling nervous, anxious, or on edge: 0 = Not at all Not being able to stop or control worryin = Not at all Worrying too much about different things: 0 = Not at all Trouble relaxin = Not at all Being so restless that it is hard to sit still: 0 = Not at all Becoming easily annoyed or irritable: 0 = Not at all Feeling afraid as if something awful might happen: 0 = Not at all Total DEBO-7 score (0-4 normal; 5-9 mild; 10-14 moderate; 15-21 severe): 0 Source: Developed by Drs. José Antonio Holloway, Martha Castillo, Daniel Ramos and colleagues, with an educational rosa from [employer]. Review of Systems Const Denies chills, Denies headache(s) and Denies weight loss ENT Denies headache(s) Card Denies chest pain, Denies syncope, Denies irregular heart rhythm and Denies dyspnea Resp Denies chest congestion, Denies cough and Denies dyspnea GI Denies abdominal pain, Denies change in stool character, Denies nausea and Denies vomiting Musc Denies deformity and Denies joint swelling Neuro Denies syncope and Denies headache(s) Physical exam (Primary Care) Vital Signs: Last Vital Signs Pulse 75 09/18/24 10:25 BP 130/76 09/18/24 10:25 Pulse Ox 100 09/18/24 10:25 Oxygen Delivery Method Room Air 09/18/24 10:25 BMI result Body Mass Index 25.1 Tobacco/Smoking Status: Tobacco use Status Tobacco use date assessed 09/18/24 09/18/24 10:28 Patient Tobacco Use Status Never used Tobacco 09/18/24 10:28 Tobacco use type Cigarette 09/18/24 10:28 e-Cigarette/Vaping Use Never Used 09/18/24 10:28 PHQ-9: PHQ-9 Score PHQ-9: Total score 11 09/18/24 10:28 Depression Screening Interpretation: Positive Thrive Assessment: Date of Thrive Assessment Date Thrive assessed 09/18/24 09/18/24 10:28 Currently or been in a relationship where the following occur: No concerns reported Const General: cooperative, comfortable, no acute distress and alert Neck Neck: Yes no lymphadenopathy Thyroid: Thyroid normal Resp Effort & Inspection: normal respiratory effort Auscultation: clear to auscultation bilaterally Percussion: percussion normal Cardio Jugular venous distension: no JVD Palpation: normal PMI Rate: regular rate Rhythm: regular rhythm Heart sounds: S1 normal heart sound present and S2 normal heart sound present GI Inspection: Yes normal to inspection Palpation (GI): No hepatosplenomegaly present Skin General skin exam: no rashes or lesions noted Extrem General: Yes no clubbing, cyanosis or edema Coding Level of Care Code Est Pt Level 3 (13407) Diagnoses Cervical spondylosis with myelopathy M47.12 Additional Codes PHQ-9 - 33115 - PHQ-9 Billing: Yes ([id number]) Assessment & Plan Assessment & Plan (1) Cervical spondylosis with myelopathy: Code(s): M47.12 - Other spondylosis with myelopathy, cervical region Category: Medical Plan: stable; same rx Orders: Orders Basic Metabolic Panel Today E87.6 - Hypokalemia
[2024-09-18 10:25] VITALS: BP 130/76; PULSE 75; O2SAT 100; BMI 25.1
== END 2024-09-18 11:14 | disposition home or self-care (01) ==
PROVIDERS: PCP Internal Medicine; Visit Provider Internal Medicine
DX: M47.12 Other spondylosis with myelopathy, cervical region (principal)

== ENCOUNTER 2024-09-21 20:43 | Emergency (ER) | payer MEDICARE, SELFPAY ==
[2024-09-21 21:20] VITALS: BP 178/82; PULSE 110; O2SAT 98
[2024-09-21 21:25] VITALS: BMI 24.4
[2024-09-21 22:05] LABS: MANUAL DIFF FLAG NO
[2024-09-21 22:07] LABS: Basophils Percent Auto 0.2 % (0-2); Eosinophils Percent Auto 0.4 % (0-4); Hematocrit 44.7 % (42.0-52.0); Hemoglobin 15.8 g/dl (14.0-18.0); Imm Gran Abs Auto 0.03 X10*3/uL (0.00-0.03); Imm Gran Pct Auto 0.3 % (0.0-0.4); Lymphocytes Absolute Auto 2.1 X10*3/uL (1.2-4.9); Lymphocytes Percent Auto 23.5 % (20-40); Mean Corpuscular HGB Conc 35.3 g/dl (31.0-36.0); Mean Corpuscular Hemoglobin 30.3 pg (27.0-33.0); Mean Corpuscular Volume 85.6 fL (80.0-98.0); Mean Platelet Volume 8.9 fL (9.4-12.4); Monocytes Absolute Auto 0.5 X10*3/uL (0.1-1.2); Monocytes Percent Auto 5.5 % (2-11); Neutrophils Absolute Auto 6.2 x10*3/uL (2.0-8.3); Neutrophils Percent Auto 70.1 % (45-73); Platelet Count 254 X10*3/uL (160-400); Red Blood Count 5.22 X10*6/uL (4.60-5.80); White Blood Count 8.9 X10*3/uL (4.8-10.8)
[2024-09-21 22:21] LABS: Alanine Aminotransferase 18 U/L (0-40); Albumin Level 4.3 g/dL (3.5-5.0); Alkaline Phosphatase 68 U/L (39-117); Anion Gap 14 (12-20); Aspartate Amino Transferase 27 U/L (5-37); Bilirubin Total 1.1 mg/dL (0.0-1.0); Blood Urea Nitrogen 15 mg/dL (9-16); Calcium 9.1 mg/dL (8.4-10.2); Carbon Dioxide 24 mmol/L (22-29); Chloride 105 mmol/L (96-108); Creatinine Clr Calc Pharmacy 78.6; Estimated Glomerular Filt Rate > 60; Glucose Random 127 mg/dL (60-115); Potassium 3.7 mmol/L (3.3-5.1); Sodium 139 mmol/L (135-145)
[2024-09-21 22:55] LABS: Appearance Urine Clear; Color Urine Yellow; Glucose Urine UA Negative (Negative); Leukocyte Esterase Urine Small (1+) (Negative); Nitrite Urine Negative (Negative); PH 6.5 (5.0-9.0); UMIC TRIGGER UACC YES; Urine Blood Negative (Negative); Urine Ketones Negative (Negative); Urine Protein Trace mg/dL (Neg-Trace)
[2024-09-21 23:06] VITALS: BP 116/67; PULSE 80; RESP 16; TEMP 36.9; O2SAT 95
[2024-09-21 23:08] LABS: Bacteria Urine None Seen (None Seen); RBC Urine 0-2 /HPF (0-2); Squamous Epithelial Cell Urine 0-2 /HPF (0-2); UACC Culture Trigger YES; WBC Urine 0-5 /HPF (0-5)
--- NOTE | 2024-09-21 23:18 | ED_ITS ---
HPI - Headache General Chief Complaint: Headache Stated Complaint: HX OF HEADACHE PT TOOK 40MG OXY , HX SPINE PAIN Time Seen by Provider: 09/21/24 23:17 Source: patient Mode of arrival: ambulatory Limitations: no limitations History of Present Illness ED Provider: HPI Narrative: Patient comes here with headache dizziness unable to stay for last 2 days as he ran out of his lorazepam we has been taking for more than 10 years although taking oxycodone for chronic pain feeling better after taking the medicine no head injury no nausea no vomiting Related Data Home Medications ?Medication ?Instructions ?Recorded ?Confirmed fluticasone propionate 50 1 inh inhalation BID 05/03/23 09/18/24 mcg/actuation blister powder for inhalation (Flovent Diskus) Previous Rx's ?Medication ?Instructions ?Recorded hydrochlorothiazide 25 mg tablet 25 mg PO QAM #90 tabs 04/05/24 zolpidem 5 mg tablet 5 mg PO BEDTIME PRN sleep #30 tabs 07/24/24 lorazepam 1 mg tablet (Ativan) 1 mg PO BID PRN anxiety #5 tabs 08/28/24 potassium chloride 20 mEq 20 meq PO DAILY #14 tabs 08/28/24 tablet,extended release tobramycin 0.3 % eye drops 2 drp ophthalmic (eye) Q4H #5 mL 08/28/24 lorazepam 1 mg tablet 1 mg PO BID 28 days #56 tabs 09/04/24 meclizine 25 mg tablet 25 mg PO QID PRN dizziness #30 tabs 09/04/24 oxycodone 5 mg tablet 5 mg PO QID PRN pain #120 tabs 09/17/24 trazodone 50 mg tablet 50 mg PO BEDTIME PRN sleep #10 tabs 09/22/24 Allergies Allergy/AdvReac Type Severity Reaction Status Date / Time No Known Allergies Allergy Verified 09/21/24 21:30 [No Known Allergies*] Review of Systems 2 Review of Systems: Yes all other systems are reviewed and are negative PMF Past Medical History Medical History Pharyngitis Other spondylosis, cervical region Surgical History History of prostate surgery Family History Family History Father Bone cancer Mother Uterine cancer Brother No problems noted. Sister No problems noted. Social History Social History Housing: House Alcohol intake: former Patient Tobacco Use Status: Never used Tobacco Tobacco use type: Cigarette Smoked in Last 30 Days: No e-Cigarette/Vaping Use: Never Used Second Hand Smoke Exposure: No Use of substances other than those prescribed or required for medical reasons: No Advance Directives: Yes Advance Directives on File: Yes Advance Directives Date on File: 12/11/23 service: No Current occupational status: retired Cognitive needs: No Hearing needs: No Vision needs: Yes Physical Exam 2 Vital Signs: Vital Signs: Last Vital Signs Temp 98.4 F 09/21/24 23:06 Pulse 80 09/21/24 23:06 Resp 16 09/21/24 23:06 BP 116/67 09/21/24 23:06 Pulse Ox 95 09/21/24 23:06 O2 Del Method Room Air 09/21/24 23:06 BMI result Body Mass Index 24.4 Appearance: Alert. Oriented X3. No acute distress. Eyes: PERRLA, No Nystagmus ENT: Pharynx normal. Oral Mucosa moist Neck: Normal inspection. Neck supple. CVS: Normal heart rate and rhythm. Pulses normal. Respiratory: No respiratory distress. Equal air entry bilateral, no wheezing/rales/rhonchi Abdomen: Soft and nontender. Bowel sounds are present, no mass palpable, no CVA tenderness Skin: Skin warm and dry. Normal skin color. Normal skin turgor. Extremities: No lower extremity edema. No calf tenderness Neuro: Oriented X 3. No motor deficit. No sensory deficit.No cerebellar signs , cranial nerves II-XII intact Medications Administered Discontinued Medications Generic Name Dose Route Start Last Admin Trade Name Freq PRN Reason Stop Dose Admin Lorazepam 1 mg 09/21/24 23:41 09/21/24 23:54 Lorazepam 1 Mg Tablet PO 09/21/24 23:42 1 mg ONCE ONE Administration Medical Decision Making Medical Decision Making MDM Narrative: Patient with anxiety chronic insomnia dependent on lorazepam which she ran out 2 days ago you will be getting the medication on 09/30. Will prescribe trazodone for insomnia advised to follow up with PCP Lab Data MDM Lab Attestation statement: I reviewed the patient's lab results. 09/21/24 22:00 09/21/24 22:00 Labs: Lab Results 09/21/24 09/21/24 Range/Units 22:00 22:45 WBC 8.9 (4.8-10.8) X10*3/uL RBC 5.22 (4.60-5.80) X10*6/uL Hgb 15.8 (14.0-18.0) g/dl Hct 44.7 (42.0-52.0) % MCV 85.6 (80.0-98.0) fL MCH 30.3 (27.0-33.0) pg MCHC 35.3 (31.0-36.0) g/dl RDW 12.0 (11.0-16.0) % Plt Count 254 (160-400) X10*3/uL MPV 8.9 L (9.4-12.4) fL Immature Gran % (Auto) 0.3 (0.0-0.4) % Neut % (Auto) 70.1 (45-73) % Lymph % (Auto) 23.5 (20-40) % Schleicher % (Auto) 5.5 (2-11) % Eos % (Auto) 0.4 (0-4) % Baso % (Auto) 0.2 (0-2) % Lymph # (Auto) 2.1 (1.2-4.9) X10*3/uL Schleicher # (Auto) 0.5 (0.1-1.2) X10*3/uL Eos # (Auto) 0.0 (0.0-0.4) X10*3/uL Baso # (Auto) 0.0 (0.0-0.2) X10*3/uL Abs Immat Gran (auto) 0.03 (0.00-0.03) X10*3/uL Absolute Neuts (auto) 6.2 (2.0-8.3) x10*3/uL Absolute Nucleated RBC 0.000 (0.0-0.012) X10*3/uL Nucleated RBC % (auto) 0.0 (0.0-0.2) /100WBC Sodium 139 (135-145) mmol/L Potassium 3.7 (3.3-5.1) mmol/L Chloride 105 (96-108) mmol/L Carbon Dioxide 24 (22-29) mmol/L Anion Gap 14 (12-20) BUN 15 (9-16) mg/dL Creatinine 0.91 (0.5-1.4) mg/dL Estim Creat Clear Calc 78.6 Estimated GFR > 60 Random Glucose 127 H (60-115) mg/dL Calcium 9.1 (8.4-10.2) mg/dL Total Bilirubin 1.1 H (0.0-1.0) mg/dL AST 27 (5-37) U/L ALT 18 (0-40) U/L Alkaline Phosphatase 68 (39-117) U/L Total Protein 8.0 (6.5-8.0) g/dL Albumin 4.3 (3.5-5.0) g/dL Urine Color Yellow Urine Appearance Clear Urine pH 6.5 (5.0-9.0) Ur Specific [place] 1.020 (1.005-1.025) Urine Protein Trace (Neg-Trace) mg/dL Urine Glucose (UA) Negative (Negative) mg/dL Urine Ketones Negative (Negative) mg/dL Urine Blood Negative (Negative) Urine Nitrite Negative (Negative) Ur Leukocyte Esterase Small (1+) H (Negative) Urine RBC 0-2 (0-2) /HPF Urine WBC 0-5 (0-5) /HPF Ur Squamous Epith Cells 0-2 (0-2) /HPF Urine Bacteria None Seen (None Seen) Hyaline Casts 3-5 (0-2) /LPF Discharge Plan Discharge Clinical Impression: Anxiety, Insomnia Patient Disposition: Home, Self-Care Instructions: Insomnia (ED), Anxiety (ED) Additional Instructions: Continue medication as prescribed by your PCP, do not take extra doses Take trazodone 50 mg every night as needed for sleep Follow up with your PCP Prescriptions: New trazodone 50 mg tablet 50 mg PO BEDTIME PRN (Reason: sleep) Qty: 10 0RF No Action hydrochlorothiazide 25 mg tablet 25 mg PO QAM Qty: 90 8RF zolpidem 5 mg tablet 5 mg PO BEDTIME PRN (Reason: sleep) Qty: 30 4RF oxycodone 5 mg tablet 5 mg PO QID PRN (Reason: pain) Qty: 120 0RF potassium chloride 20 mEq tablet extended release 20 meq PO DAILY Qty: 14 0RF tobramycin 0.3 % drops 2 drp ophthalmic (eye) Q4H Qty: 5 0RF lorazepam [Ativan] 1 mg tablet 1 mg PO BID PRN (Reason: anxiety) Qty: 5 0RF Flovent Diskus 50 mcg/actuation blister with device 1 inh inhalation BID meclizine 25 mg tablet 25 mg PO QID PRN (Reason: dizziness) Qty: 30 2RF lorazepam 1 mg tablet 1 mg PO BID 28 Days Qty: 56 3RF Print Language: Norwegian
[2024-09-21] MEDS: LORazepam 1 MG TABLET PO (23:54)
[2024-09-22 00:50] VITALS: BP 149/89; PULSE 83; RESP 16; TEMP 36.8; O2SAT 97
== END 2024-09-22 00:53 | disposition home or self-care (01) ==
PROVIDERS: Emergency Provider Internal Medicine
DX: F41.9 Anxiety disorder, unspecified (principal); G47.00 Insomnia, unspecified; I10 Essential (primary) hypertension; Z79.899 Other long term (current) drug therapy; Z79.891 Long term (current) use of opiate analgesic
CPT/HCPCS: 36415; 80053; 81001; 85025; 87086; 99283; 99284

== ENCOUNTER 2024-09-25 15:29 | Emergency (ER) | payer MEDICARE, SELFPAY ==
[2024-09-25 15:40] VITALS: BP 180/100; PULSE 97; O2SAT 98
[2024-09-25 15:44] VITALS: BP 143/86; PULSE 85; RESP 16; TEMP 36.8; O2SAT 98; BMI 23.7
--- NOTE | 2024-09-25 15:55 | ECG_ITS ---
Test Reason : DIZZINESS Blood Pressure : */* mmHG Vent. Rate : 75 BPM Atrial Rate : 75 BPM P-R Int : 142 ms QRS Dur : 92 ms QT Int : 388 ms P-R-T Axes : 22 -60 32 degrees QTcB Int : 433 ms Normal sinus rhythm Left axis deviation Abnormal ECG When compared with ECG of 31-Aug-2024 18:02, No significant change was found Referred By: Ann Villasenor Electronically Signed By: MIRYAM TIRADO
[2024-09-25 16:19] VITALS: BP 148/84; PULSE 76
[2024-09-25 16:22] VITALS: BP 144/84; PULSE 78
[2024-09-25 16:25] VITALS: BP 138/89; PULSE 93
--- NOTE | 2024-09-25 16:31 | ED.DIZZY ---
HPI - Dizziness General Chief Complaint: Dizziness Stated Complaint: DIZZINESS, LT HEADED X3 DAYS PER EMS Time Seen by Provider: 09/25/24 15:46 Source: patient, EMS and old records reviewed Mode of arrival: EMS Limitations: no limitations History of Present Illness ED Provider: NELI CONTRERAS Narrative: 79 yo male with PMH of anxiety Rx ativan 1mg BID it is a 28 day supply and he went through it in 21 days, chronic back pain on oxycodone, HTN here with c/o severe anxiety and now feels weird and dizzy off his ativan. He was seen Saturday for same complaint and notes he was given trazodone but he took one dose and felt his HR and worse so he threw it away. He is going to see his PCP and get a therapist/psychiatrist to mange his benzo overuse. He has not had a seizure. He notes he is going to fill his ativan Rx tomorrow at 9am confirmed it is ready in the pharmacy. No SI/HI does not want to talk to crisis here MD elicited complaint: lightheadedness and other Onset (ago): day(s) (few) Timing: intermittent Severity: mild Description: other Context: other History of similar symptoms: No Exacerbating factors: change in body position Relieving factors: nothing Associated symptoms: denies other symptoms Related Data Home Medications ?Medication ?Instructions ?Recorded ?Confirmed fluticasone propionate 50 1 inh inhalation BID 05/03/23 09/18/24 mcg/actuation blister powder for inhalation (Flovent Diskus) Previous Rx's ?Medication ?Instructions ?Recorded hydrochlorothiazide 25 mg tablet 25 mg PO QAM #90 tabs 04/05/24 zolpidem 5 mg tablet 5 mg PO BEDTIME PRN sleep #30 tabs 07/24/24 lorazepam 1 mg tablet (Ativan) 1 mg PO BID PRN anxiety #5 tabs 08/28/24 potassium chloride 20 mEq 20 meq PO DAILY #14 tabs 08/28/24 tablet,extended release tobramycin 0.3 % eye drops 2 drp ophthalmic (eye) Q4H #5 mL 08/28/24 lorazepam 1 mg tablet 1 mg PO BID 28 days #56 tabs 09/04/24 meclizine 25 mg tablet 25 mg PO QID PRN dizziness #30 tabs 09/04/24 oxycodone 5 mg tablet 5 mg PO QID PRN pain #120 tabs 09/17/24 trazodone 50 mg tablet 50 mg PO BEDTIME PRN sleep #10 tabs 09/22/24 Allergies Allergy/AdvReac Type Severity Reaction Status Date / Time No Known Allergies Allergy Verified 09/25/24 15:46 [No Known Allergies*] Review of Systems Review of Systems: Constitutional : No Fever, No Chills, No Fatigue ENT/Mouth : No sore throat, No Rhinorrhea Eyes: No Eye Pain, No Swelling, No Redness Cardiovascular : No Chest Pain, No SOB, No Dyspnea on Exertion Respiratory : No Cough, No Sputum Gastrointestinal : No Nausea, No Vomiting, No Diarrhea, No abdominal Pain Genitourinary : No Dysuria, No Urinary Frequency, No Hematuria, Musculoskeletal : No joint pain, No Myalgias, No Joint Swelling Skin : No Skin Lesions, No rash Neuro : No Weakness, No Numbness, pos Dizziness, no Headache Psych : pos Anxiety/Panic, No Depression All other systems reviewed and are negative [facility] Past Medical History Attestation statement: The following information was validated with the patient. Source: old records reviewed Medical History Anxiety Hypertension Pharyngitis Other spondylosis, cervical region Surgical History History of prostate surgery Family History Family History Father Bone cancer Mother Uterine cancer Brother No problems noted. Sister No problems noted. Social History Social History Housing: House Alcohol intake: former Patient Tobacco Use Status: Never used Tobacco Tobacco use type: Cigarette e-Cigarette/Vaping Use: Never Used Second Hand Smoke Exposure: No Advance Directives: Yes Advance Directives on File: Yes Advance Directives Date on File: 12/11/23 Do you have a plan to hurt others: No Plan service: No Current occupational status: retired Cognitive needs: No Hearing needs: No Vision needs: Yes Physical Exam Vital Signs: Vital Signs: Last Vital Signs Temp 98.2 F 09/25/24 17:18 Pulse 93 09/25/24 17:18 Resp 16 09/25/24 17:18 BP 138/89 09/25/24 17:18 Pulse Ox 98 09/25/24 17:18 O2 Del Method Room Air 09/25/24 17:18 BMI result Body Mass Index 23.7 Appearance: Alert. Oriented X3. No acute distress. Eyes: Pupils equal, round and reactive to light. ENT: Pharynx normal. Neck: Normal inspection. Neck supple. CVS: Normal heart rate and rhythm. Pulses normal. Respiratory: No respiratory distress. Breath sounds normal. Abdomen: Soft and non-tender. Skin: Skin warm and dry. Normal skin color. Normal skin turgor. Extremities: No lower extremity edema. No calf ttp Neuro: Oriented X 3. No motor deficit. No sensory deficit. CN2-12 intact Medications Administered Discontinued Medications Generic Name Dose Route Start Last Admin Trade Name Freq PRN Reason Stop Dose Admin Lorazepam 2 mg 09/25/24 16:19 09/25/24 17:02 Lorazepam 1 Mg Tablet PO 09/25/24 16:20 2 mg ONCE ONE Administration Medical Decision Making Medical Decision Making [facility] Narrative: 79 yo male with PMH of anxiety Rx ativan 1mg BID it is a 28 day supply and he went through it in 21 days, chronic back pain on oxycodone, HTN here with c/o feeling anxiety and dizziness after being out of his ativan Rx which he will fill tomorrow. No seizures no signs of autonomic dysfunction at this time given his c/o dizziness will obtain basic labs, EKG, ortho VS, dose x 1 ativan here with his already planned outpatient follow up. Differential Diagnosis Differential Diagnoses: The differential diagnosis associated with the presentation includes benzodiazepine overuse, anxiety, dizziness Admission/Observation Consideration of admission/observation: Escalation of care including admission/observation considered work up reassuring stable for DC Lab Data [facility] Lab Attestation statement: I reviewed the patient's lab results. 09/25/24 16:30 09/25/24 16:30 Labs: Lab Results 09/25/24 Range/Units 16:30 WBC 8.3 (4.8-10.8) X10*3/uL RBC 5.29 (4.60-5.80) X10*6/uL Hgb 16.2 (14.0-18.0) g/dl Hct 45.4 (42.0-52.0) % MCV 85.8 (80.0-98.0) fL MCH 30.6 (27.0-33.0) pg MCHC 35.7 (31.0-36.0) g/dl RDW 11.9 (11.0-16.0) % Plt Count 262 (160-400) X10*3/uL MPV 9.1 L (9.4-12.4) fL Immature Gran % (Auto) 0.2 (0.0-0.4) % Neut % (Auto) 69.4 (45-73) % Lymph % (Auto) 24.6 (20-40) % Camp % (Auto) 5.4 (2-11) % Eos % (Auto) 0.2 (0-4) % Baso % (Auto) 0.2 (0-2) % Lymph # (Auto) 2.0 (1.2-4.9) X10*3/uL [place] # (Auto) 0.5 (0.1-1.2) X10*3/uL Eos # (Auto) 0.0 (0.0-0.4) X10*3/uL Baso # (Auto) 0.0 (0.0-0.2) X10*3/uL Abs Immat Gran (auto) 0.02 (0.00-0.03) X10*3/uL Absolute Neuts (auto) 5.7 (2.0-8.3) x10*3/uL Absolute Nucleated RBC 0.000 (0.0-0.012) X10*3/uL Nucleated RBC % (auto) 0.0 (0.0-0.2) /100WBC Sodium 139 (135-145) mmol/L Potassium 3.6 (3.3-5.1) mmol/L Chloride 102 (96-108) mmol/L Carbon Dioxide 31 H (22-29) mmol/L Anion Gap 10 L (12-20) BUN 14 (9-16) mg/dL Creatinine 0.98 (0.5-1.4) mg/dL Estim Creat Clear Calc 73.0 Estimated GFR > 60 Random Glucose 113 (60-115) mg/dL Calcium 9.2 (8.4-10.2) mg/dL Magnesium 2.7 H (1.6-2.6) mg/dL Total Bilirubin 1.4 H (0.0-1.0) mg/dL Direct Bilirubin 0.4 (0.0-0.5) mg/dL AST 23 (5-37) U/L ALT 24 (0-40) U/L Alkaline Phosphatase 68 (39-117) U/L Total Protein 8.2 H (6.5-8.0) g/dL Albumin 4.5 (3.5-5.0) g/dL Independent Interpretation I performed an independent interpretation of an: EKG Interpretation: Rate: 75 Rhythm: NSR [place]: normal Normal P waves. Normal GISEL. Normal QRS complex. ST T wave : normal no BRIAN qTC: 433 prior studies: The study has been interpreted contemporaneously by me. . External Record Review External record reviewed: Outpatient record Discharge Plan Discharge Clinical Impression: Anxiety Patient Disposition: Home, Self-Care Instructions: Generalized Anxiety Disorder (ED) Additional Instructions: EKG and labs reassuring today return for worsening symptoms such as confusion, passing out, seizures or any other concerns as discussed follow up with therapy and your primary care doctor Prescriptions: No Action hydrochlorothiazide 25 mg tablet 25 mg PO QAM Qty: 90 8RF zolpidem 5 mg tablet 5 mg PO BEDTIME PRN (Reason: sleep) Qty: 30 4RF oxycodone 5 mg tablet 5 mg PO QID PRN (Reason: pain) Qty: 120 0RF potassium chloride 20 mEq tablet extended release 20 meq PO DAILY Qty: 14 0RF tobramycin 0.3 % drops 2 drp ophthalmic (eye) Q4H Qty: 5 0RF lorazepam [Ativan] 1 mg tablet 1 mg PO BID PRN (Reason: anxiety) Qty: 5 0RF trazodone 50 mg tablet 50 mg PO BEDTIME PRN (Reason: sleep) Qty: 10 0RF Flovent Diskus 50 mcg/actuation blister with device 1 inh inhalation BID meclizine 25 mg tablet 25 mg PO QID PRN (Reason: dizziness) Qty: 30 2RF lorazepam 1 mg tablet 1 mg PO BID 28 Days Qty: 56 3RF Referrals: [facility] [Outside] (therapy to follow up with as outpatient) Interventions: ED Discharge Assessment Last Done: 09/25/24 17:18 Discharge Date/Time: 09/25/24 17:19 Print Language: Frisian
[2024-09-25 16:33] LABS: MANUAL DIFF FLAG NO
[2024-09-25 16:45] LABS: Basophils Percent Auto 0.2 % (0-2); Eosinophils Percent Auto 0.2 % (0-4); Hematocrit 45.4 % (42.0-52.0); Hemoglobin 16.2 g/dl (14.0-18.0); Imm Gran Abs Auto 0.02 X10*3/uL (0.00-0.03); Imm Gran Pct Auto 0.2 % (0.0-0.4); Lymphocytes Percent Auto 24.6 % (20-40); Mean Corpuscular HGB Conc 35.7 g/dl (31.0-36.0); Mean Corpuscular Hemoglobin 30.6 pg (27.0-33.0); Mean Corpuscular Volume 85.8 fL (80.0-98.0); Mean Platelet Volume 9.1 fL (9.4-12.4); Monocytes Absolute Auto 0.5 X10*3/uL (0.1-1.2); Monocytes Percent Auto 5.4 % (2-11); Neutrophils Absolute Auto 5.7 x10*3/uL (2.0-8.3); Neutrophils Percent Auto 69.4 % (45-73); Platelet Count 262 X10*3/uL (160-400); Red Blood Count 5.29 X10*6/uL (4.60-5.80); Red Cell Distribution Width 11.9 % (11.0-16.0); White Blood Count 8.3 X10*3/uL (4.8-10.8)
[2024-09-25 16:48] LABS: Alanine Aminotransferase 24 U/L (0-40); Albumin Level 4.5 g/dL (3.5-5.0); Alkaline Phosphatase 68 U/L (39-117); Anion Gap 10 (12-20); Aspartate Amino Transferase 23 U/L (5-37); Bilirubin Direct 0.4 mg/dL (0.0-0.5); Bilirubin Total 1.4 mg/dL (0.0-1.0); Blood Urea Nitrogen 14 mg/dL (9-16); Calcium 9.2 mg/dL (8.4-10.2); Carbon Dioxide 31 mmol/L (22-29); Chloride 102 mmol/L (96-108); Estimated Glomerular Filt Rate > 60; Glucose Random 113 mg/dL (60-115); Magnesium 2.7 mg/dL (1.6-2.6); Potassium 3.6 mmol/L (3.3-5.1); Sodium 139 mmol/L (135-145); Total Protein 8.2 g/dL (6.5-8.0)
[2024-09-25] MEDS: LORazepam 1 MG TABLET 2 MG PO (17:02)
[2024-09-25 17:18] VITALS: BP 138/89; PULSE 93; RESP 16; TEMP 36.8; O2SAT 98
== END 2024-09-25 17:19 | disposition home or self-care (01) ==
PROVIDERS: Emergency Provider Emergency Medicine; PCP Internal Medicine
DX: R42 Dizziness and giddiness (principal); F41.9 Anxiety disorder, unspecified; R94.31 Abnormal electrocardiogram [ECG] [EKG]; Z79.899 Other long term (current) drug therapy
CPT/HCPCS: 36415; 80048; 80076; 83735; 85025; 93005; 99283

== ENCOUNTER → 2024-09-25 15:55 | Outpatient (BNV) | payer MEDICARE, SELFPAY | PROVIDERS: Emergency Provider Emergency Medicine; PCP Internal Medicine; Visit Provider Internal Medicine | DX: R42 Dizziness and giddiness (principal); R94.31 Abnormal electrocardiogram [ECG] [EKG] | CPT/HCPCS: 93010 ==

== ENCOUNTER 2024-10-04 09:47 | Inpatient (IN) | payer MEDICARE, SELFPAY ==
[2024-10-04] VITALS (15 sets, daily range): BP systolic 74–142; BP diastolic 53–87; PULSE 86–170; RESP 14–22; TEMP 36.7–37.7; O2SAT 92–99; BMI 23.6
--- NOTE | ~2024-10-04 | CT_ITS ---
CLINICAL HISTORY: fall,pain CT head without contrast Comparison: None Findings: No evidence of acute territorial infarct. There is patchy low density in the periventricular and subcortical white matter. Diffuse volume loss is noted. No hydrocephalus. No hemorrhage, mass effect, mass lesion or midline shift. No abnormal extra-axial fluid. No calvarial fracture. Paranasal sinuses and mastoid air cells are clear. Impression: No evidence of acute process. Mild ischemic microangiopathy and diffuse volume loss. This document has been electronically signed by: John Erazo MD on 10/04/2024 13:46:03
--- NOTE | ~2024-10-04 | CT_ITS ---
CLINICAL HISTORY: fall CT cervical spine without contrast Comparison: None Findings: No fracture or acute malalignment. Moderate multilevel degenerative change with disc space narrowing, marginal osteophyte formation and endplate sclerosis. No prevertebral soft tissue edema. Lung apices are clear. Impression: Moderate multilevel degenerative change. No acute fracture or acute malalignment. This document has been electronically signed by: John Erazo MD on 10/04/2024 13:16:55
--- NOTE | ~2024-10-04 | CT_ITS ---
CLINICAL HISTORY: fall CT chest without contrast Comparison: None Findings: No cardiomegaly. Moderate atherosclerotic disease of the coronary arteries. No mediastinal adenopathy or pericardial effusion. No discrete thyroid lesion. No pneumothorax or effusion. Angular 3 mm nodule along the right minor fissure. No follow-up. Similar nodule along the right major fissure, axial 40. Mild dependent changes. Multiple prior healed rib fractures are present on the left. No acute rib fracture identified. Reformatted imaging of the thoracic spine demonstrates chronic multilevel degenerative change. No acute fracture. The sternum is intact. Impression: No evidence of traumatic injury involving the chest. Incidental findings as detailed. This document has been electronically signed by: John Erazo MD on 10/04/2024 13:45:01
--- NOTE | ~2024-10-04 | XR_ITS ---
CLINICAL HISTORY: tachycardia 1 view chest x-ray Comparison: None Findings: Minimal subsegmental atelectasis at the lung bases. No effusion or pneumothorax. Normal size heart. No acute fracture. IMPRESSION: 1. No acute findings. This document has been electronically signed by: John Erazo MD on 10/04/2024 13:06:57
--- NOTE | ~2024-10-04 | CT_ITS ---
CLINICAL HISTORY: fall CT abdomen and pelvis without contrast Comparison: None Findings: The lung bases are clear. The unenhanced liver, spleen, pancreas and adrenal glands are unremarkable. Tiny gallstones layer dependently within the gallbladder. No obstructive uropathy or urinary calculus. The bladder is decompressed. The prostate gland is within expected limits. No bowel obstruction, free air, abscess or adenopathy. Moderate atherosclerotic disease. Multilevel degenerative changes are present. Reformatted imaging of the spine demonstrates no acute fracture or acute malalignment. The bony pelvis is intact. The bilateral femoral heads are well directed towards their respective acetabula. Impression: No evidence of solid organ or hollow visceral traumatic injury involving the abdomen or pelvis by noncontrast CT. Incidental findings as detailed. This document has been electronically signed by: John Erazo MD on 10/04/2024 13:43:33
[2024-10-04 11:13] LABS: MANUAL DIFF FLAG NO
[2024-10-04 11:14] LABS: Basophils Percent Auto 0.1 % (0-2); Eosinophils Percent Auto 0.1 % (0-4); Hematocrit 42.9 % (42.0-52.0); Hemoglobin 15.9 g/dl (14.0-18.0); Imm Gran Abs Auto 0.08 X10*3/uL (0.00-0.03); Imm Gran Pct Auto 0.5 % (0.0-0.4); Lymphocytes Percent Auto 5.9 % (20-40); Mean Corpuscular HGB Conc 37.1 g/dl (31.0-36.0); Mean Corpuscular Hemoglobin 30.6 pg (27.0-33.0); Mean Corpuscular Volume 82.5 fL (80.0-98.0); Mean Platelet Volume 9.6 fL (9.4-12.4); Monocytes Absolute Auto 0.6 X10*3/uL (0.1-1.2); Monocytes Percent Auto 3.9 % (2-11); Neutrophils Absolute Auto 14.8 x10*3/uL (2.0-8.3); Neutrophils Percent Auto 89.5 % (45-73); Platelet Count 264 X10*3/uL (160-400); Red Cell Distribution Width 12.1 % (11.0-16.0); White Blood Count 16.5 X10*3/uL (4.8-10.8)
[2024-10-04 11:26] LABS: Appearance Urine Cloudy; Color Urine Dark Yellow; Glucose Urine UA Negative (Negative); Leukocyte Esterase Urine Trace (Negative); Nitrite Urine Negative (Negative); PH 5.5 (5.0-9.0); Specific Gravity - Urine 1.025 (1.005-1.025); UMIC TRIGGER UACC YES; Urine Blood Large (3+) (Negative); Urine Ketones Trace mg/dL (Negative); Urine Protein 100 (2+) mg/dL (Neg-Trace)
--- NOTE | 2024-10-04 11:30 | PC.NURSE ---
Pt. transitioned care to Eliane Herrera RN in room 2 d/t critical Potassium of 2.8 and need for continuous cardiac monitoring per Negin Acevedo NP.
[2024-10-04 11:35] LABS: Alanine Aminotransferase 83 U/L (0-40); Albumin Level 3.9 g/dL (3.5-5.0); Alkaline Phosphatase 64 U/L (39-117); Anion Gap 15 (12-20); Aspartate Amino Transferase 194 U/L (5-37); Bilirubin Total 3.8 mg/dL (0.0-1.0); Blood Urea Nitrogen 32 mg/dL (9-16); Calcium 9.3 mg/dL (8.4-10.2); Carbon Dioxide 29 mmol/L (22-29); Chloride 97 mmol/L (96-108); Creatinine Clr Calc Pharmacy 66.9; Estimated Glomerular Filt Rate > 60; Ethanol 11 mg/dL; Glucose Random 160 mg/dL (60-115); Potassium 2.8 mmol/L (3.3-5.1); Sodium 138 mmol/L (135-145); Total Protein 7.5 g/dL (6.5-8.0)
[2024-10-04 11:38] LABS: Bacteria Urine None Seen (None Seen); Granular Casts Urine Present; Hyaline Casts Urine >20 /LPF (0-2); UACC Culture Trigger YES
[2024-10-04 11:49] LABS: Amphetamine Screen Urine Not Detected (Not Detect); Barbiturates, Urine Not Detected (Not Detect); Benzodiazepines Screen Urine Not Detected (Not Detect); Buprenorphine Scr Not Detected (Not Detect); Cannabinoid Screen Urine Not Detected (Not Detect); Cocaine Screen Urine Not Detected (Not Detect); Fentanyl, urine Not Detected (Not Detect); Methadone Screen, Urine Not Detected (Not Detect); Opiate Screen Urine POSITIVE (Not Detect); Oxycodone Screen Urine Positive (Not Detect); Phencyclidine Screen Urine Not Detected (Not Detect)
--- NOTE | 2024-10-04 11:49 | ECG_ITS ---
Test Reason : TACHY Blood Pressure : */* mmHG Vent. Rate : 162 BPM Atrial Rate : * BPM P-R Int : * ms QRS Dur : 88 ms QT Int : 324 ms P-R-T Axes : * -58 51 degrees QTcB Int : 531 ms Atrial fibrillation with rapid ventricular response Left axis deviation Inferior infarct , age undetermined Abnormal ECG When compared with ECG of 25-Sep-2024 16:15, Atrial fibrillation has replaced Sinus rhythm Vent. rate has increased by [address] now depressed in Anterolateral leads Referred By: Tatiana Acevedo Electronically Signed By: CHAYA CHOI MD
--- NOTE | 2024-10-04 11:53 | PC.NURSE ---
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 pt placed on monitor displaying afib. provider bedside as well. ekg performed by tech displaying afib w/ RVR. pt denies any chest pain/palpitations/dizziness/lightheadedness. pt presents in no respiratory distress. two, 18gIVs placed in the ACs bilaterally. labs obtained/sent to lab. IVF/medication administered per provider order. otherwise vss and up to date. no sob/wob noted. respirations even/unlabored. family remains bedside. plan of care ongoing. call ny placed within reach.
[2024-10-04] MEDS: Metoprolol Tartrate 5 MG/5 ML VIAL IVPUSH ×2 (11:57→12:50)
[2024-10-04] MEDS: Potassium Chloride/H20 10 MEQ/100 ML PIGGYBACK 100 MEQ IV ×2 (11:57→12:59)
[2024-10-04] MEDS: Magnesium Sulfate/D5W 1 GM/100 ML PIGGYBACK IV (11:57)
[2024-10-04] MEDS: 0.9 % Sodium Chloride 1,000 ML 999 ML IV (12:00)
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
[2024-10-04 12:13] LABS: INTERNATIONAL NORM RATIO 1.2 (0.9-1.1)
[2024-10-04] MEDS: cefTRIAXone sodium 2 GM VIAL IVPUSH (12:15)
[2024-10-04 12:25] LABS: Magnesium 2.6 mg/dL (1.6-2.6)
[2024-10-04 12:35] LABS: Troponin-I High Sensitivity 29.5 ng/L (<3.5-35.0)
[2024-10-04 12:42] LABS: Influenza A PCR NEGATIVE (Negative); Influenza B PCR NEGATIVE (Negative); Resp Syncy Virus RNA Qual PCR NEGATIVE (Negative); SARS COV2 PCR INHOUSE NEGATIVE (Negative)
[2024-10-04] MEDS: Digoxin 0.5 MG/2 ML AMPUL 0.25 MG IVPUSH (12:50)
[2024-10-04] MEDS: Potassium Chloride ER 20 MEQ TAB.ER.PRT 60 MEQ PO (13:03)
--- NOTE | 2024-10-04 13:05 | PC.NURSE ---
pt remains in afib RVR at this time. HR between 125-150bpm. pt denies any chest pain/palpitations/sob. provider notified/aware. additional medication administered per provider order. effectiveness pending.
[2024-10-04 13:12] LABS: Lactic Acid 2.4 mmol/L (0.5-2.0)
[2024-10-04 14:00] LABS: Reflex Lactate? Lactic Acid Added
[2024-10-04] MEDS: LORazepam 1 MG TABLET PO (14:12)
[2024-10-04] MEDS: Acetaminophen 325 MG TABLET 975 MG PO (14:12)
[2024-10-04] MEDS: Metoprolol Succinate ER 25 MG TAB.ER.24H PO (14:12)
[2024-10-04] MEDS: oxyCODONE HCl Immed Release 5 MG TABLET PO (14:12)
[2024-10-04 14:58] LABS: Troponin-I High Sensitivity 26.8 ng/L (<3.5-35.0)
[2024-10-04] MEDS: Rivaroxaban 2.5 MG TABLET 5 MG PO (15:06)
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
[2024-10-04] MEDS: 0.9 % Sodium Chloride Flush 3 ML SYRINGE IVFLUSH (16:47)
[2024-10-04] MEDS: Rivaroxaban 15 MG TABLET PO (17:08)
[2024-10-04] MEDS: Lactated Ringers 1,000 ML 999 ML IV (17:16)
--- NOTE | 2024-10-04 17:31 | PC.NURSE ---
pt noted to be hypotensive at this time. denies feeling dizzy/lightheaded. 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 pt still denies any chest pain/palpitations/sob. LR IVF bolus infusing via pressure bag per provider order. effectiveness pending. will transition pt to continuous IVF s/p bolus. respirations remain even/unlabored.
[2024-10-04] MEDS: Lactated Ringers 1,000 ML 100 ML IVCONT (17:39)
--- NOTE | 2024-10-04 17:42 | PC.NURSE ---
pt's BP remains soft s/p IVF bolus. LR now infusing @ 100mls/hr.
--- NOTE | 2024-10-04 19:31 | PC.NURSE ---
pt tray taken at this time, pt assisted in bed repositioning at this time, no acute distress noted.
[2024-10-04] MEDS: LORazepam 1 MG TABLET 2 MG PO (20:58)
[2024-10-05] VITALS (8 sets, daily range): BP systolic 104–123; BP diastolic 58–77; PULSE 91–120; RESP 16–20; TEMP 36.4–37; O2SAT 95–99
[2024-10-05] MEDS: oxyCODONE HCl Immed Release 5 MG TABLET PO ×2 (02:29→08:43)
--- NOTE | 2024-10-05 02:32 | PC.NURSE ---
pt reporting 5/10 generalized body pain at this time, pt medicated per mar, tolerated well with water.
[2024-10-05] MEDS: Morphine Sulfate 2 MG/ML CARTRIDGE IVPUSH (03:36)
--- NOTE | 2024-10-05 03:39 | PC.NURSE ---
pt reporting prn medication has not helped pain, pt reports 9/10 generalized body pain, provider aware, medicated per mar.
[2024-10-05 04:33] LABS: Hematocrit 37.3 % (42.0-52.0); Hemoglobin 13.3 g/dl (14.0-18.0); Mean Corpuscular HGB Conc 35.7 g/dl (31.0-36.0); Mean Corpuscular Volume 84.2 fL (80.0-98.0); Mean Platelet Volume 9.9 fL (9.4-12.4); Platelet Count 200 X10*3/uL (160-400); Red Blood Count 4.43 X10*6/uL (4.60-5.80); Red Cell Distribution Width 12.5 % (11.0-16.0); White Blood Count 10.8 X10*3/uL (4.8-10.8)
[2024-10-05 04:47] LABS: Anion Gap 13 (12-20); Blood Urea Nitrogen 32 mg/dL (9-16); Calcium 8.4 mg/dL (8.4-10.2); Carbon Dioxide 21 mmol/L (22-29); Chloride 108 mmol/L (96-108); Creatinine Clr Calc Pharmacy 80.4; Estimated Glomerular Filt Rate > 60; Glucose Random 117 mg/dL (60-115); Potassium 3.2 mmol/L (3.3-5.1); Sodium 139 mmol/L (135-145)
--- NOTE | 2024-10-05 07:00 | CA_ITS ---
Transthoracic Echocardiogram Patient (Last, First, Middle): Torsten Ratliff, Gender: Male Date of : 1945 Age: 79 Procedure Date: 10/05/2024 Procedure Type: Transthoracic Echocardiogram [place] [facility] [place]: 190.5 cm Weight: 85.28 kg BSA: 2.14 m2 Heart Rate: bpm BP: 117 / 77 mmHg Veneer Stacker: ARSLAN Dalton MD: Merrill MAR Mash Filter Press Operator: Alfonso Gautam MD Symptoms: New onset AFib w/RVR Study Quality: Technically Difficult ECG Rhythm: Atrial Fibrillation Conclusions: - 1. Technically limited study due to off axis views due to possibly body positioning and limited windows. Patient declined contrast use 2. LV ejection fraction appears to be normal 65% 3. Mitral annual calcification noted, cardiac valvular Dopplers grossly within normal limits 4. Normal calculated RV systolic pressure Findings Left Ventricle Normal left ventricular cavity size. The left ventricular systolic function is normal. The visually estimated ejection fraction is between 60-65%. Regional wall motion abnormalities can not be excluded due to suboptimal endocardial definition. Diastolic function is indeterminate on the basis of available data. Right Ventricle The right ventricle was not well visualized. Atria The left atrium was not well visualized. Interatrial shunt cannot be excluded. The right atrium was not well visualized. Aortic Valve The aortic valve was not well visualized. There is no aortic valve stenosis. There is no aortic valve regurgitation. Mitral Valve There is mild anterior mitral leaflet thickening. There is mild mitral annular calcification. There is trace mitral valve regurgitation. There is no mitral valve stenosis. Pulmonic Valve The pulmonic valve was not well visualized. Tricuspid Valve Likely normal tricuspid valve structure and function. There is trace tricuspid valve regurgitation. The right ventricular systolic pressure is normal. The right ventricular systolic pressure is 27 mmHg. There is no evidence of pulmonary hypertension. Great Vessels The aorta was not well visualized. The pulmonary artery was not well visualized. Venous The inferior vena cava was not well visualized. Pericardium/Pleural The pericardium was not well visualized. Prior Study Comparison No prior study available for comparison. Measurements 2D Linear Measurements LVIDd: 2.88 3.9-5.3/4.2-5.9 cm LVIDd Index: 1.35 2.4-3.2/2.2-3.1 cm/m2 LVIDs: 1.58 2.0-3.6 cm Ao Root: 3.40 2.1-3.5 cm LA Diam: 3.00 2.7-3.8/3.0-4.0 cm LAIDs Index: 1.40 1.5-2.3 cm/m2 LVOT Diam: 2.00 3.0+(-)1.3 cm 2D Systolic Function EF 4C: 67.40 >55% EF 2C: 60.90 >55% EF BiP: 66.50 >55% Mitral Valve MV Pk E: 0.90 Aortic Valve AoV Pk John: 1.31 AoV Pk Grad: 7.00 LVOT LVOT Pk John: 0.87 LVOT Mn John: 0.71 LVOT VTI: 0.17 LVOT Pk Grad: 3.00 LVOT Mn Grad: 2.00 LVOT Diam: 2.00 LVOT Area: 3.14 Diastolic Function MV Pk E: 0.90 Right Ventricle TAPSE (mm): 15.00 TVS' John: 10.00 Tricuspid Valve TR Pk John: 2.17 TR Pk Grad: 19.00 RA Press: 8.00 RVSP: 27.00 Great Vessels Aorta Ao Root-2D: 3.40 2.0-3.7 cm Updated in Other Vendor System with Status of Final Alfonso Gautam MD electronically signed on 10/05/2024 4:13:34 PM with status of Final
[2024-10-05] MEDS: Metoprolol Succinate ER 50 MG TAB.ER.24H PO (08:43)
[2024-10-05] MEDS: Cholecalciferol (Vitamin D3) 25 MCG TABLET PO (08:43)
[2024-10-05] MEDS: Ascorbic Acid 500 MG TABLET PO (08:43)
[2024-10-05] MEDS: Apixaban 5 MG TABLET PO ×2 (08:43→20:30)
[2024-10-05] MEDS: 0.9 % Sodium Chloride Flush 3 ML SYRINGE IVFLUSH ×3 (10:41→20:31)
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
[2024-10-05 11:33] LABS: Free T4 (Free Thyroxine) 1.32 ng/dL (0.71-1.85); Thyroid Stimulating Hormone 0.45 uIU/mL (0.32-4.0)
[2024-10-05] MEDS: Vitamin E (Dl,Tocopheryl Acet) 180 MG (400 UNIT) CAPSULE PO (11:38)
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
[2024-10-05] MEDS: Digoxin 0.5 MG/2 ML AMPUL 0.125 MG IVPUSH ×2 (13:02→18:03)
[2024-10-05] MEDS: LORazepam 0.5 MG TABLET PO ×2 (13:05→16:58)
[2024-10-05] MEDS: Acetaminophen 325 MG TABLET 650 MG PO (13:09)
--- NOTE | 2024-10-05 14:00 | MHC.RECOVRN ---
Met with pt to follow up and assess for opioid withdrawal. Pt sitting on edge of bed, eating lunch, niece and nephew present with patient's permission. Pt appears comfortable, not restless, no diaphoresis, rhinorrhea, or piloerection noted, denies upset stomach. Pt states, I feel great, want to dance? Pt reports body aches from recent falls. Pt reports desire to initiate Suboxone as soon as possible. Denies other questions or concerns for t/w. Discussed with Christine Galvan APRN.
--- NOTE | 2024-10-05 14:31 | MHC.CM.PN ---
IMM 10/05/24, Pt lives alone, he functionally independent, no home health services or DME. HCP on file with PCP, naming his niece Bea Corbin, CM will contact PCP office for copy. PCP confirmed: Jake Burgos. DCP: TBD, possible care team consult for question of psych admission. Family can transport home at DC is pt goes home. CM to follow for DC planning.
[2024-10-05] MEDS: Buprenorphine/Naloxone 4/1 mg FILM 1 FILM SUBLINGUAL (16:14)
--- NOTE | 2024-10-05 18:54 | HO.SKINPHOTO ---
Location: Category: Stage: Length: Width: Depth: cm Location: Category: Stage: Length: Width: Depth: cm Location: Category: Stage: Length: Width: Depth: cm Location: Category: Stage: Length: Width: Depth: cm Location: Category: Stage: Length: Width: Depth: cm Location: Category: Stage: Length: Width: Depth: cm
[2024-10-05] MEDS: Melatonin 3 MG TABLET 6 MG PO (20:30)
[2024-10-05] MEDS: LORazepam 1 MG TABLET 2 MG PO (20:31)
[2024-10-06] VITALS (7 sets, daily range): BP systolic 101–125; BP diastolic 62–76; PULSE 85–102; RESP 18–20; TEMP 36.2–37.6; O2SAT 94–97
--- NOTE | 2024-10-06 00:14 | PM.EVENT ---
Event Note Date of Service: 10/06/24 Event Note: Lab reported Gram-positive cocci in clusters. Will order empiric IV vancomycin Time Spent With Patient Time: Total time managing care of this patient today ____ minutes.
[2024-10-06] MEDS: LORazepam 0.5 MG TABLET PO ×4 (00:35→11:41)
[2024-10-06] MEDS: vancomycin/NS 2,000 MG/500 ML PLAST..BAG 250 MG IV (00:36)
[2024-10-06] MEDS: Buprenorphine/Naloxone 2/0.5mg FILM 1 FILM SUBLINGUAL (04:39)
[2024-10-06] MEDS: Buprenorphine/Naloxone 4/1 mg FILM 1 FILM SUBLINGUAL ×2 (07:50→15:55)
[2024-10-06] MEDS: Metoprolol Succinate ER 50 MG TAB.ER.24H PO (07:50)
[2024-10-06] MEDS: Apixaban 5 MG TABLET PO ×2 (07:50→20:16)
[2024-10-06] MEDS: Ascorbic Acid 500 MG TABLET PO (07:50)
[2024-10-06] MEDS: Vitamin E (Dl,Tocopheryl Acet) 180 MG (400 UNIT) CAPSULE PO (07:50)
[2024-10-06] MEDS: Cholecalciferol (Vitamin D3) 25 MCG TABLET PO (07:51)
[2024-10-06] MEDS: 0.9 % Sodium Chloride Flush 3 ML SYRINGE IVFLUSH ×3 (07:51→20:16)
--- NOTE | 2024-10-06 08:17 | PHA.PROG ---
Admission Date/Time: October 04, 2024 15:23 Indication: Bacteremia Weight in k.6 kg Adjusted body weight in Kg: [place] body weight in Kg: Obesity Dosing Indication % IBW: Serum Creatinine - Last 168 Hours 10/04/24 10/05/24 11:08 04:27 Creatinine 1.07 0.89 Estimated CrCl and GFR - Last 168 Hours 10/04/24 10/05/24 11:08 04:27 Estim Creat Clear Calc 66.9 80.4 Estimated GFR > 60 > 60 Vancomycin Loading Dose: 2000mg x 1 Current Vancomycin Dosing Regimen: 750mg Q12H Vancomycin Monitoring using AUC goal of 400 - 600 range with trough as surrogate marker: 450 mg/L Date and Time for next Vancomycin Level to be drawn: 10/07 @0900 Pharmacist Comments on Vancomycin Plan: predicted trough of 15 mg/L Vancomycin dosing will take advantage of [employer] as a clinical decision support tool that uses Bayesian modeling to calculate individual patient's pharmacokinetic parameters and forecast the patient's drug concentration time course with the target goal AUC 24 range of 400 - 600 mg/L/hr.
[2024-10-06 08:53] LABS: Hematocrit 35.7 % (42.0-52.0); Hemoglobin 12.8 g/dl (14.0-18.0); Mean Corpuscular HGB Conc 35.9 g/dl (31.0-36.0); Mean Corpuscular Hemoglobin 30.6 pg (27.0-33.0); Mean Corpuscular Volume 85.4 fL (80.0-98.0); Mean Platelet Volume 9.7 fL (9.4-12.4); Platelet Count 227 X10*3/uL (160-400); Red Blood Count 4.18 X10*6/uL (4.60-5.80); Red Cell Distribution Width 12.4 % (11.0-16.0); White Blood Count 7.9 X10*3/uL (4.8-10.8)
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
[2024-10-06 09:12] LABS: Anion Gap 8 (12-20); Blood Urea Nitrogen 18 mg/dL (9-16); Calcium 7.9 mg/dL (8.4-10.2); Carbon Dioxide 27 mmol/L (22-29); Chloride 106 mmol/L (96-108); Estimated Glomerular Filt Rate > 60; Glucose Random 120 mg/dL (60-115); Potassium 3.2 mmol/L (3.3-5.1); Sodium 138 mmol/L (135-145)
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
--- NOTE | 2024-10-06 10:31 | PM.PNCARD ---
Subjective Subjective Date of Service: 10/06/24 Principal diagnosis: Atrial fibrillation Interval history: Patient says he is feeling a lot better compared to yesterday. He he feels he is more energetic and more alert and has better appetite. His heart rate is better controlled on current therapy. He is more alert. Blood pressure is stable. 1/2 blood cultures positive for staph species question contaminant Review of Systems Review of Systems Yes all other systems are reviewed and are negative Physical Exam Vital Signs: Last Vital Signs Temp 98.4 F 10/06/24 07:27 Pulse 95 10/06/24 07:50 Resp 20 10/06/24 07:27 BP 125/74 10/06/24 07:50 Pulse Ox 97 10/06/24 07:27 O2 Del Method Room Air 10/06/24 07:27 BMI result Body Mass Index 23.6 Const General: cooperative, comfortable, no acute distress, alert and awake Nutritional Appearance: average body habitus Orientation/consciousness: patient oriented x3 HEENT Head: Yes normocephalic Neck Neck: Yes trachea midline, Yes supple and Yes no JVD Resp Effort & Inspection: normal respiratory effort Auscultation: clear to auscultation bilaterally Cardio Jugular venous distension: no JVD Rate: regular rate Rhythm: abnormal rhythm irregularly irregular Heart sounds: S1 normal heart sound present, S2 normal heart sound present, no click, no gallops and no murmurs GI Auscultation: normal bowel sounds Skin General skin exam: no rashes or lesions noted and ecchymosis Neuro General: patient oriented x3 and no focal motor deficits Extrem General: Yes no clubbing, cyanosis or edema Objective Labs and Meds 10/06/24 08:36 10/06/24 08:36 Lab results: Laboratory Results - last 24 hr 10/05/24 10/06/24 04:27 08:36 WBC 7.9 RBC 4.18 L Hgb 12.8 L Hct 35.7 L MCV 85.4 MCH 30.6 MCHC 35.9 RDW 12.4 Plt Count 227 MPV 9.7 Absolute Nucleated RBC 0.000 Nucleated RBC % (auto) 0.0 Sodium 138 Potassium 3.2 L Chloride 106 Carbon Dioxide 27 Anion Gap 8 L BUN 18 H Creatinine 0.73 Estim Creat Clear Calc 98.0 Estimated GFR > 60 Random Glucose 120 H Calcium 7.9 L TSH 0.45 Free T4 1.32 Progress Note: A&P Assessment and plan (1) Atrial fibrillation with RVR: Status: Acute Assessment and Plan: New onset atrial fibrillation, currently better rate control. Start digoxin 0.25 mg p.o. daily. Follow-up digoxin level in 1 week through your office. Continue metoprolol therapy. Blood pressure is optimized. PT consultation and if he was good balance and does not abuse his benzodiazepines or opioids would be a candidate for oral anticoagulant therapy. This was discussed with him importance of blood thinners were discussed. Echo should be requested. Will sign of the case and follow-up as outpatient. Time Spent With Patient Time: Total time managing care of this patient today ____ minutes. Progress Note: Quality Stroke Does the patient have a stroke diagnosis?: No Procedures Date of Service Date of Service: 10/06/24
[2024-10-06] MEDS: Digoxin 0.25 MG TABLET PO (11:15)
[2024-10-06] MEDS: Potassium Chloride ER 20 MEQ TAB.ER.PRT PO ×2 (11:15→20:16)
[2024-10-06] MEDS: vancomycin HCL 750 MG in 0.9 % Sodium Chloride 250 ML 265 MG IV ×2 (11:16→22:22)
[2024-10-06] MEDS: Milk of Magnesia 30 ML ORAL.SUSP PO (11:41)
--- NOTE | 2024-10-06 12:16 | HO.ADDICTPRO ---
Subjective Subjective Date of Service: 10/06/24 Reason For Visit: new onset afib w RVR Interim History: Patient seen in follow up Initiated Suboxone 4mg yesterday (10/05) Utilized PRN dose of Suboxone 2mg at 0430 this morning (10/06) Received scheduled 4mg dose at 0900 today (10/06) as well Patient is awake, alert, engaged in interview. He is sitting up in bed, appearance overall much improved from yesterday when seen in the ED. He reported that medication has been helpful -- I feel better, my body can rest, the pain is not as bad Patient then began to perseverate on dosing the remainder of the day, requesting that medication be administrated at 11am again, he was reminded that he had just received it at 9am, to which he shrugged and stated I know by then I will need more . He also began to ask about lorazepam and when his next dose was due--this public relations writer inquired when he received last dose, and patient was unable to recall. It is currently ordered 2mg at HS with 0.5mg q4H PRN In terms of withdrawal sx, patient reports anxiety and body aches. He was able to distinguish that he does not feel pain, but is sore, my body is all beat up , and he motioned to all of the abrasions he has on his arms and legs. No observed signs/symptoms of withdrawal Review of Systems Constitutional: Reports as per HPI and Reports difficulty sleeping Psychiatric: Reports anxiety Mental Status Exam Mental Status Exam Patient Appearance: Well Grooomed Level of Consciousness: Awake and Alert Patient Behavior: Anxious Mood Description: Anxious Affect Description: Anxious Speech Pattern: Clear and Perseverating Thought Process: Rumination Thought Content: positive for Circumstantial, positive for Perseveration and positive for Tangential Judgement: Fair Diagnostics Vital Signs (24Hr): Vital Signs - 24 hr 10/05/24 12:25 10/05/24 18:03 10/05/24 19:49 Temperature 98.6 F 98.6 F 98.5 F Pulse Rate 95 94 93 Respiratory Rate 18 18 20 Blood Pressure 117/77 106/71 117/61 Pulse Oximetry 97 96 99 Oxygen Delivery Method Room Air Room Air Room Air 10/05/24 23:18 10/06/24 03:38 10/06/24 07:27 Temperature 97.9 F 98.1 F 98.4 F Pulse Rate 91 85 95 Respiratory Rate 16 20 20 Blood Pressure 108/65 101/62 125/74 Pulse Oximetry 95 96 97 Oxygen Delivery Method Room Air Room Air Room Air 10/06/24 07:50 10/06/24 11:28 Temperature 98.5 F Pulse Rate 95 87 Respiratory Rate 18 Blood Pressure 125/74 110/66 Pulse Oximetry 95 Oxygen Delivery Method Room Air BMI result Body Mass Index 23.6 Labs 10/06/24 08:36 10/06/24 08:36 Labs: Laboratory Results - last 48 hr 10/04/24 10/04/24 10/04/24 11:53 11:54 14:26 WBC RBC Hgb Hct MCV MCH MCHC RDW Plt Count MPV Absolute Nucleated RBC Nucleated RBC % (auto) Sodium Potassium Chloride Carbon Dioxide Anion Gap BUN Creatinine Estim Creat Clear Calc Estimated GFR Random Glucose Lactic Acid 2.4 H* 2.0 Calcium Magnesium 2.6 Troponin I High Sens 29.5 D 26.8 TSH Free T4 Influenza Type A (PCR) NEGATIVE Influenza Type B (PCR) NEGATIVE RSV RNA Qual (PCR) NEGATIVE SARS-CoV-2 RNA (RT-PCR) NEGATIVE 10/05/24 10/06/24 04:27 08:36 WBC 10.8 7.9 RBC 4.43 L 4.18 L Hgb 13.3 L 12.8 L Hct 37.3 L 35.7 L MCV 84.2 85.4 MCH 30.0 30.6 MCHC 35.7 35.9 RDW 12.5 12.4 Plt Count 200 227 MPV 9.9 9.7 Absolute Nucleated RBC 0.000 0.000 Nucleated RBC % (auto) 0.0 0.0 Sodium 139 138 Potassium 3.2 L 3.2 L Chloride 108 106 Carbon Dioxide 21 L 27 Anion Gap 13 8 L BUN 32 H 18 H Creatinine 0.89 0.73 Estim Creat Clear Calc 80.4 98.0 Estimated GFR > 60 > 60 Random Glucose 117 H 120 H Lactic Acid Calcium 8.4 D 7.9 L Magnesium Troponin I High Sens TSH 0.45 Free T4 1.32 Influenza Type A (PCR) Influenza Type B (PCR) RSV RNA Qual (PCR) SARS-CoV-2 RNA (RT-PCR) Medications Medications Current Medications Acetaminophen (Acetaminophen 325 Mg Tablet) 650 mg PO Q6H PRN PRN Reason: Pain, Mild 1-3,fever,headache Last Admin: 10/05/24 13:09 Dose: 650 mg Apixaban (Apixaban 5 Mg Tablet) 5 mg PO BID [facility] Last Admin: 10/06/24 07:50 Dose: 5 mg Ascorbic Acid (Ascorbic Acid 500 Mg Tablet) 500 mg PO DAILY [facility] Last Admin: 10/06/24 07:50 Dose: 500 mg Benzonatate (Benzonatate 100 Mg Capsule) 100 mg PO TID PRN PRN Reason: Cough Buprenorphine/Naloxone (Buprenorphine/Naloxone 4/1 Mg Film) 1 film SUBLINGUAL DAILY [facility] Last Admin: 10/06/24 07:50 Dose: 1 film Buprenorphine/Naloxone (Buprenorphine/Naloxone 2/0.5mg Film) 1 film SUBLINGUAL DAILY PRN PRN Reason: Opiate Withdrawal Last Admin: 10/06/24 04:39 Dose: 1 film Calcium Carbonate (Calcium Carbonate 750 Mg Tab.Chew) 750 mg PO Q4H PRN PRN Reason: Heartburn Digoxin (Digoxin 0.25 Mg Tablet) 0.25 mg PO DAILY [facility]; Protocol Last Admin: 10/06/24 11:15 Dose: 0.25 mg Vancomycin HCl 750 mg/ Sodium (Chloride) 265 mls @ 265 mls/hr IV Q12H [facility] Last Admin: 10/06/24 11:16 Dose: 265 mls/hr Lorazepam (Lorazepam 1 Mg Tablet) 2 mg PO BEDTIME [facility] Last Admin: 10/05/24 20:31 Dose: 2 mg Lorazepam (Lorazepam 0.5 Mg Tablet) 0.5 mg PO Q4H PRN PRN Reason: anxiety/restlessness Last Admin: 10/06/24 11:41 Dose: 0.5 mg Magnesium Hydroxide (Milk Of Magnesia 30 Ml Oral.Susp) 30 ml PO DAILY PRN PRN Reason: Constipation Last Admin: 10/06/24 11:41 Dose: 30 ml Melatonin (Melatonin 3 Mg Tablet) 6 mg PO BEDTIME PRN PRN Reason: Insomnia Last Admin: 10/05/24 20:30 Dose: 6 mg Metoprolol Succinate (Metoprolol Succinate Er 50 Mg Tab.Er.24h) 50 mg PO DAILY [facility]; Protocol Last Admin: 10/06/24 07:50 Dose: 50 mg Ondansetron HCl (Ondansetron Hcl 4 Mg/2 Ml Vial) 4 mg IVPUSH Q8H PRN PRN Reason: Nausea and Vomiting Pharmacy Consult (Consult Rx Vancomycin Dosing) 1 each MISCELLANE DAILY PRN PRN Reason: Consult order Potassium Chloride (Potassium Chloride Er 20 Meq Tab.Er.Prt) 20 meq PO BID [facility] Stop: 10/06/24 21:01 Last Admin: 10/06/24 11:15 Dose: 20 meq Sodium Chloride (0.9 % Sodium Chloride Flush 3 Ml Syringe) 3 ml IVFLUSH QSHIFT [facility] Last Admin: 10/06/24 07:51 Dose: 3 ml Vitamin D (Cholecalciferol (Vitamin D3) 25 Mcg Tablet) 25 mcg PO DAILY [facility] Last Admin: 10/06/24 07:51 Dose: 25 mcg Vitamin E (Vitamin E (Dl,Tocopheryl Acet) 180 Mg (400 Unit) Capsule) 180 mg PO DAILY [facility] Last Admin: 10/06/24 07:50 Dose: 180 mg Allergies Allergies Allergy/AdvReac Type Severity Reaction Status Date / Time No Known Allergies Allergy Verified 10/04/24 10:06 [No Known Allergies*] Assessment & Plan Assessment & Plan (1) Opioid use disorder, severe, dependence: Status: Acute Code(s): F11.20 - Opioid dependence, uncomplicated Assessment and Plan: Will add second 4mg dose later this afternoon for daily dose of 4mg BID will d/c PRN dose (2) Severe benzodiazepine use disorder: Status: Acute Code(s): F13.20 - Sedative, hypnotic or anxiolytic dependence, uncomplicated Assessment and Plan: Recommend decreasing frequency of PRN lorazepam dosing --at time of this note(0760), patient has already received 3 PRN doses for total of 1.5mg. He is unable to tolerate any feelings of anxiety and will continue to request medication. May benefit from non benzo PRN option Psych consult to address anxiety and adjust benzodiazepine plan Total time managing care of this patient today __30__ minutes.
--- NOTE | 2024-10-06 15:35 | HO.WOUND ---
Wound Consult: Initial 79yr old?male admitted to [facility] on 10/04/24 - See progress notes and H&P for detailed history.? Wound consult placed for Multiple abrasions throughout body.? Patient agreeable to assessment and photo documentation.? Chart review and discussion is unclear how abrasions occurred - they are consistent with rug marcos but difficult to understand how patient they occurred. Etiology: Abrasions??Present on Admission Wound Bed: in various stages of healing - all appear deep partial thickness tissue loss - the scabs that were in place have since been moisturized. No foul odor noted - no s/s of active infection from the sites. Since they are moist will continue with moist wound healing. The dry stable scabs are partial thickness and stable - no s/s of infection - recommend Hydrocolloid dressing to protect from environment allow for moist wound healing and provide comfort. Drainage / Odor: yellow meneses - no odor Edges: ? irregular and attached Yudy wound: ? mild erythema - No Induration, Fluctuance or Warmth noted Pain: pain reported Goals of Treatment: ? moist wound healing Recommendations: 1. Turn and Reposition every 2 hours and as needed for patient comfort.? Use pillows or wedges to support off loading positions. 2. Off Load all bony prominences with use of pillows and heel boots if needed.? Apply Preventative foams where needed. ? 3. Monitor for incontinence and moisture control, use barrier creams when needed for prevention and treatment. 4. Provide adequate and supplemental nutrition.? 5. Order low air loss mattress. 6. When applicable maintain blood glucose levels per Providers order. 7. Abrasions - Cleanse with NS moist gauze, pat dry. Apply skin prep to periarea allow to dry. Cover moist wound beds with xeroform and dry gauze and change daily. The dry wound bed can be covered with Hydrocolloid and changed every 3 days. Re-consult wound care Nurse for wound deterioration or wound changes.
[2024-10-06] MEDS: LORazepam 1 MG TABLET 2 MG PO (20:16)
[2024-10-06] MEDS: Acetaminophen 325 MG TABLET 650 MG PO (20:16)
[2024-10-07] VITALS (7 sets, daily range): BP systolic 107–150; BP diastolic 63–91; PULSE 67–110; RESP 17–20; TEMP 36.2–37.5; O2SAT 96–99
[2024-10-07] MEDS: Ascorbic Acid 500 MG TABLET PO (08:02)
[2024-10-07] MEDS: Metoprolol Succinate ER 50 MG TAB.ER.24H PO (08:02)
[2024-10-07] MEDS: Apixaban 5 MG TABLET PO ×2 (08:02→21:38)
[2024-10-07] MEDS: LORazepam 0.5 MG TABLET PO ×3 (08:02→17:57)
[2024-10-07] MEDS: Vitamin E (Dl,Tocopheryl Acet) 180 MG (400 UNIT) CAPSULE PO (08:03)
[2024-10-07] MEDS: Buprenorphine/Naloxone 4/1 mg FILM 1 FILM SUBLINGUAL ×2 (08:03→17:15)
[2024-10-07] MEDS: 0.9 % Sodium Chloride Flush 3 ML SYRINGE IVFLUSH ×3 (08:03→21:39)
[2024-10-07] MEDS: Cholecalciferol (Vitamin D3) 25 MCG TABLET PO (08:03)
[2024-10-07] MEDS: Digoxin 0.25 MG TABLET PO (08:03)
--- NOTE | 2024-10-07 09:31 | MHC.CM.PN ---
PT is recommending home with services; CM will follow.
[2024-10-07] MEDS: vancomycin HCL 750 MG in 0.9 % Sodium Chloride 250 ML 265 MG IV (11:20)
[2024-10-07 11:32] LABS: Creatinine Clr Calc Pharmacy 90.6; Estimated Glomerular Filt Rate > 60; Vancomycin Trough 9.7 mcg/mL (10.0-20.0)
[2024-10-07 11:34] LABS: Potassium 3.8 mmol/L (3.3-5.1)
--- NOTE | 2024-10-07 11:49 | HE.PHANOTE ---
Re: Vanco Renal function improved. Trough returned at 9.7, pt is subtherapeutic. Dose increased to 1250mg q12h, with predicted AUC 547, predicted trough 16.5. Next trough 10/08 @2100. RN hung bag at 1120, trough was due 0900. Trough returned at 1130. Added a dose of 500mg at 1230 to reflect the increase in dose.
[2024-10-07] MEDS: vancomycin HCL 500 MG in 0.9 % Sodium Chloride 100 ML 110 MG IV (12:55)
[2024-10-07] MEDS: polyethylene glycoL 3350 17 GM POWD.PACK PO (15:39)
[2024-10-07] MEDS: Docusate Sodium 100 MG CAPSULE PO (15:39)
[2024-10-07] MEDS: Sodium Phosphate,Mono-Dibasic 133 ML ENEMA PR (15:48)
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
--- NOTE | 2024-10-07 16:29 | HO.ADDICTPRO ---
Subjective Subjective Date of Service: 10/07/24 Reason For Visit: new onset afib w RVR Interim History: Patient seen in follow up for OUD, withdrawal management Awake, alert, engaged in interview. Requesting additional dose of suboxone mid-day, reporting worsening pain around 2pm. Inquired about effectiveness of suboxone doses from yesterday (10/06) --he stated that he received the second dose abound 8 or 9pm and he felt that was too long in btwn doses. T/w reminded patient that medication is actually ordered for 5pm, and he received the dose at 4pm. Asked how he felt today (seen around noon) he said, better, calmer . He reports he is eating well, but sleep is impaired and states he slept 2 hours. Review of Systems Constitutional: Reports as per HPI Mental Status Exam Mental Status Exam Patient Appearance: Appropriate Level of Consciousness: Awake and Alert Patient Behavior: Talkative and Anxious Mood Description: Anxious Affect Description: Anxious and Labile Speech Pattern: Clear Thought Content: positive for Tangential Judgement: Fair Diagnostics Vital Signs (24Hr): Vital Signs - 24 hr 10/06/24 19:43 10/06/24 23:57 10/07/24 03:44 Temperature 97.1 F 98.0 F 97.5 F Pulse Rate 102 H 86 67 Respiratory Rate 18 18 18 Blood Pressure 117/69 101/70 130/70 Pulse Oximetry 96 94 96 Oxygen Delivery Method Room Air Room Air Room Air 10/07/24 07:03 10/07/24 09:18 10/07/24 11:28 Temperature 97.2 F 97.3 F Pulse Rate 96 96 75 Respiratory Rate 17 19 Blood Pressure 107/63 107/63 118/67 Pulse Oximetry 96 96 97 Oxygen Delivery Method Room Air Room Air 10/07/24 15:52 Temperature 99.5 F Pulse Rate 110 H Respiratory Rate 20 Blood Pressure 134/91 H Pulse Oximetry 98 Oxygen Delivery Method Room Air BMI result Body Mass Index 23.6 Labs 10/06/24 08:36 10/07/24 11:13 Labs: Laboratory Results - last 48 hr 10/06/24 10/07/24 08:36 11:13 WBC 7.9 RBC 4.18 L Hgb 12.8 L Hct 35.7 L MCV 85.4 MCH 30.6 MCHC 35.9 RDW 12.4 Plt Count 227 MPV 9.7 Absolute Nucleated RBC 0.000 Nucleated RBC % (auto) 0.0 Sodium 138 Potassium 3.2 L 3.8 Chloride 106 Carbon Dioxide 27 Anion Gap 8 L BUN 18 H Creatinine 0.73 0.79 Estim Creat Clear Calc 98.0 90.6 Estimated GFR > 60 > 60 Random Glucose 120 H Calcium 7.9 L Magnesium 2.0 Vancomycin Trough 9.7 L Medications Medications Current Medications Acetaminophen (Acetaminophen 325 Mg Tablet) 650 mg PO Q6H PRN PRN Reason: Pain, Mild 1-3,fever,headache Last Admin: 10/06/24 20:16 Dose: 650 mg Apixaban (Apixaban 5 Mg Tablet) 5 mg PO BID [facility] Last Admin: 10/07/24 08:02 Dose: 5 mg Ascorbic Acid (Ascorbic Acid 500 Mg Tablet) 500 mg PO DAILY [facility] Last Admin: 10/07/24 08:02 Dose: 500 mg Benzonatate (Benzonatate 100 Mg Capsule) 100 mg PO TID PRN PRN Reason: Cough Buprenorphine/Naloxone (Buprenorphine/Naloxone 4/1 Mg Film) 1 film SUBLINGUAL BID@0800,1700 [facility] Last Admin: 10/07/24 08:03 Dose: 1 film Calcium Carbonate (Calcium Carbonate 750 Mg Tab.Chew) 750 mg PO Q4H PRN PRN Reason: Heartburn Digoxin (Digoxin 0.25 Mg Tablet) 0.25 mg PO DAILY [facility]; Protocol Last Admin: 10/07/24 08:03 Dose: 0.25 mg Docusate Sodium (Docusate Sodium 100 Mg Capsule) 100 mg PO BID [facility] Last Admin: 10/07/24 15:39 Dose: 100 mg Hydroxyzine HCl (Hydroxyzine Hcl 25 Mg Tablet) 25 mg PO QID PRN PRN Reason: anxiety Vancomycin HCl 1,250 mg/ (Sodium Chloride) 250 mls @ 166.667 mls/hr IV Q12H [facility] Lorazepam (Lorazepam 1 Mg Tablet) 2 mg PO BEDTIME [facility] Last Admin: 10/06/24 20:16 Dose: 2 mg Lorazepam (Lorazepam 0.5 Mg Tablet) 0.5 mg PO Q4H PRN PRN Reason: anxiety/restlessness Last Admin: 10/07/24 14:32 Dose: 0.5 mg Magnesium Hydroxide (Milk Of Magnesia 30 Ml Oral.Susp) 30 ml PO DAILY PRN PRN Reason: Constipation Last Admin: 10/06/24 11:41 Dose: 30 ml Melatonin (Melatonin 3 Mg Tablet) 6 mg PO BEDTIME PRN PRN Reason: Insomnia Last Admin: 10/05/24 20:30 Dose: 6 mg Metoprolol Succinate (Metoprolol Succinate Er 50 Mg Tab.Er.24h) 50 mg PO DAILY [facility]; Protocol Last Admin: 10/07/24 08:02 Dose: 50 mg Ondansetron HCl (Ondansetron Hcl 4 Mg/2 Ml Vial) 4 mg IVPUSH Q8H PRN PRN Reason: Nausea and Vomiting Pharmacy Consult (Consult Rx Vancomycin Dosing) 1 each MISCELLANE DAILY PRN PRN Reason: Consult order Polyethylene Glycol (Polyethylene Glycol 3350 17 Gm Powd.Pack) 17 gm PO DAILY [facility] Last Admin: 10/07/24 15:39 Dose: 17 gm Sodium Biphosphate/Sodium Phosphate (Sodium Phosphate,[place]-Dibasic 133 Ml Enema) 133 ml [place] ONCE PRN PRN Reason: Constipation Last Admin: 10/07/24 15:48 Dose: 133 ml Sodium Chloride (0.9 % Sodium Chloride Flush 3 Ml Syringe) [facility] Last Admin: 10/07/24 08:03 Dose: 3 ml Vitamin D (Cholecalciferol (Vitamin D3) 25 Mcg Tablet) 25 mcg PO DAILY [facility] Last Admin: 10/07/24 08:03 Dose: 25 mcg Vitamin E (Vitamin E (Dl,Tocopheryl Acet) 180 Mg (400 Unit) Capsule) 180 mg PO DAILY [facility] Last Admin: 10/07/24 08:03 Dose: 180 mg Allergies Allergies Allergy/AdvReac Type Severity Reaction Status Date / Time No Known Allergies Allergy Verified 10/04/24 10:06 [No Known Allergies*] Assessment & Plan Assessment & Plan (1) Opioid use disorder, severe, dependence: Status: Acute Code(s): F11.20 - Opioid dependence, uncomplicated Assessment and Plan: will keep dose as is for one more day --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
[2024-10-07] MEDS: LORazepam 1 MG TABLET 2 MG PO (21:39)
--- NOTE | 2024-10-07 23:14 | W.PM.IDCN ---
History of Present Illness Data of Consult Service Date: 10/07/24 Requesting physician: Akhil Braxton Primary Care Provider: Jake Burgos MD HPI Reason for consult: bacteremia He presents to ER with abrasions left leg and weakness. He told me he had been falling in his house. He has no fever or chills at home. He has blood culture 1/2gram positive cocci,from 10/04. Review of Systems Review of Systems: Yes all other systems are reviewed and are negative [facility] Past Medical History Medical History (Updated 10/07/24 @ 23:28 by Maureen Galvan MD) Bacteremia Anxiety Hypertension Pharyngitis Other spondylosis, cervical region Family History Family History Father Bone cancer Mother Uterine cancer Brother No problems noted. Sister No problems noted. Family history: reviewed and not pertinent Surgical History Surgical History History of prostate surgery Social History Social History Household Members: None Housing: House Do you presently have visiting nurse or other home services: Yes Alcohol intake: former Patient Tobacco Use Status: Never used Tobacco Tobacco use type: Cigarette e-Cigarette/Vaping Use: Never Used Second Hand Smoke Exposure: No Substance Use Type: Opiates, Painkillers and Prescription Drugs Advance Directives Date on File: 12/11/23 service: No Current occupational status: retired Cognitive needs: No Hearing needs: No Vision needs: Yes Meds Allergies Allergy/AdvReac Type Severity Reaction Status Date / Time No Known Allergies Allergy Verified 10/04/24 10:06 [No Known Allergies*] Active Medications: Current Medications Acetaminophen (Acetaminophen 325 Mg Tablet) 650 mg PO Q6H PRN PRN Reason: Pain, Mild 1-3,fever,headache Last Admin: 10/06/24 20:16 Dose: 650 mg Apixaban (Apixaban 5 Mg Tablet) 5 mg PO BID [facility] Last Admin: 10/07/24 21:38 Dose: 5 mg Ascorbic Acid (Ascorbic Acid 500 Mg Tablet) 500 mg PO DAILY [facility] Last Admin: 10/07/24 08:02 Dose: 500 mg Benzonatate (Benzonatate 100 Mg Capsule) 100 mg PO TID PRN PRN Reason: Cough Buprenorphine/Naloxone (Buprenorphine/Naloxone 4/1 Mg Film) 1 film SUBLINGUAL BID@0800,1700 [facility] Last Admin: 10/07/24 17:15 Dose: 1 film Calcium Carbonate (Calcium Carbonate 750 Mg Tab.Chew) 750 mg PO Q4H PRN PRN Reason: Heartburn Digoxin (Digoxin 0.25 Mg Tablet) 0.25 mg PO DAILY [facility]; Protocol Last Admin: 10/07/24 08:03 Dose: 0.25 mg Docusate Sodium (Docusate Sodium 100 Mg Capsule) 100 mg PO BID [facility] Last Admin: 10/07/24 15:39 Dose: 100 mg Hydroxyzine HCl (Hydroxyzine Hcl 25 Mg Tablet) 25 mg PO QID PRN PRN Reason: anxiety Vancomycin HCl 1,250 mg/ (Sodium Chloride) 250 mls @ 166.667 mls/hr IV Q12H [facility] Lorazepam (Lorazepam 1 Mg Tablet) 2 mg PO BEDTIME [facility] Last Admin: 10/07/24 21:39 Dose: 2 mg Lorazepam (Lorazepam 0.5 Mg Tablet) 0.5 mg PO Q4H PRN PRN Reason: anxiety/restlessness Last Admin: 10/07/24 17:57 Dose: 0.5 mg Magnesium Hydroxide (Milk Of Magnesia 30 Ml Oral.Susp) 30 ml PO DAILY PRN PRN Reason: Constipation Last Admin: 10/06/24 11:41 Dose: 30 ml Melatonin (Melatonin 3 Mg Tablet) 6 mg PO BEDTIME PRN PRN Reason: Insomnia Last Admin: 10/05/24 20:30 Dose: 6 mg Metoprolol Succinate (Metoprolol Succinate Er 50 Mg Tab.Er.24h) 50 mg PO DAILY [facility]; Protocol Last Admin: 10/07/24 08:02 Dose: 50 mg Ondansetron HCl (Ondansetron Hcl 4 Mg/2 Ml Vial) 4 mg IVPUSH Q8H PRN PRN Reason: Nausea and Vomiting Pharmacy Consult (Consult Rx Vancomycin Dosing) 1 each MISCELLANE DAILY PRN PRN Reason: Consult order Polyethylene Glycol (Polyethylene Glycol 3350 17 Gm Powd.Pack) 17 gm PO DAILY [facility] Last Admin: 10/07/24 15:39 Dose: 17 gm Sodium Biphosphate/Sodium Phosphate (Sodium Phosphate,[place]-Dibasic 133 Ml Enema) 133 ml [place] ONCE PRN PRN Reason: Constipation Last Admin: 10/07/24 15:48 Dose: 133 ml Sodium Chloride (0.9 % Sodium Chloride Flush 3 Ml Syringe) 3 ml IVFLUSH QSHIFT [facility] Last Admin: 10/07/24 21:39 Dose: 3 ml Vitamin D (Cholecalciferol (Vitamin D3) 25 Mcg Tablet) 25 mcg PO DAILY [facility] Last Admin: 10/07/24 08:03 Dose: 25 mcg Vitamin E (Vitamin E (Dl,Tocopheryl Acet) 180 Mg (400 Unit) Capsule) 180 mg PO DAILY [facility] Last Admin: 10/07/24 08:03 Dose: 180 mg Home Medications ?Medication ?Instructions ?Recorded ?Confirmed ?Last Taken ?Type ascorbic acid (vitamin C) 500 mg 500 mg PO DAILY 10/04/24 10/04/24 10/03/24 History tablet (Vitamin C) cholecalciferol (vitamin D3) 25 25 mcg PO DAILY 10/04/24 10/04/24 10/03/24 History mcg (1,000 unit) tablet (Vitamin D3) coenzyme Q10 50 mg capsule (Co 50 mg PO DAILY 10/04/24 10/04/24 10/03/24 History Q-10) lorazepam 1 mg tablet 2 mg PO BEDTIME 10/04/24 10/04/24 09/29/24 History omega 2-mng-jdw-fish oil 1,000 mg 1 cap PO DAILY 10/04/24 10/04/24 10/03/24 History (120 mg-180 mg) capsule (Fish Oil) vitamin E 268 mg (400 unit) capsule 268 mg PO DAILY 10/04/24 10/04/24 10/03/24 History zinc acetate 25 mg (zinc) capsule 25 mg PO DAILY 10/04/24 10/04/24 10/03/24 History Physical Exam Vital Signs: Vital Signs: Last Vital Signs Temp 98.6 F 10/07/24 19:24 Pulse 84 10/07/24 19:24 Resp 20 10/07/24 19:24 BP 150/72 H 10/07/24 19:24 Pulse Ox 99 10/07/24 19:24 O2 Del Method Room Air 10/07/24 19:24 BMI result Body Mass Index 23.6 Const: General: cooperative HEENT: Head: Yes normal to inspection Face and sinus: Yes normal facial exam Mouth: Normal oral and palatal mucosa present Teeth and gingiva: dentition normal Eyes: General: appearance normal, both eyes and all related structures Pupils: Equal, round and reactive pupils present Resp: Effort & Inspection: normal respiratory effort Cardio: Rate: regular rate Rhythm: regular rhythm GI: Palpation (GI): Soft to palpation and nontender : General: Yes no CVA tenderness Back/Spine/Pelvis: Back: no CVA tenderness Skin: General skin exam: no rashes or lesions noted Neuro: General: moves all extremities Cranial nerves: Yes Equal, round and reactive pupils present Extrem: Other: abrasions left leg abrasions left arm Psych: Appearance: grossly normal Results Labs 10/06/24 08:36 10/07/24 11:13 Labs: BMP 10/07/24 11:13 Potassium 3.8 Creatinine 0.79 Microbiology Microbiology Results: Microbiology 10/04/24 11:53 Blood - Venous Blood Culture - Preliminary Prelim: GPC Gram Stain only 10/04/24 12:08 Blood - Venous Blood Culture - Preliminary No growth after 48 hours. 10/04/24 Unknown Urine clean catch - Clean Catch Midstream Urine Culture - Final Assessment and Plan (1) Bacteremia: Status: Acute Plan Await culture report blood. Probable contaminant as 1/2 positive and taking time to identify. Stop Vancomycin unless strep or staph aureus or other pathogen tomorrow. Local care to wound.
[2024-10-07] MEDS: vancomycin HCL 1,250 MG in 0.9 % Sodium Chloride 250 ML 166.67 MG IV (23:43)
[2024-10-08] VITALS (7 sets, daily range): BP systolic 125–148; BP diastolic 66–87; PULSE 78–98; RESP 18–20; TEMP 36.8–37.3; O2SAT 95–99
[2024-10-08] MEDS: Vitamin E (Dl,Tocopheryl Acet) 180 MG (400 UNIT) CAPSULE PO (09:12)
[2024-10-08] MEDS: polyethylene glycoL 3350 17 GM POWD.PACK PO (09:12)
[2024-10-08] MEDS: Ascorbic Acid 500 MG TABLET PO (09:12)
[2024-10-08] MEDS: Digoxin 0.25 MG TABLET PO (09:12)
[2024-10-08] MEDS: Apixaban 5 MG TABLET PO ×2 (09:12→21:08)
[2024-10-08] MEDS: Docusate Sodium 100 MG CAPSULE PO ×2 (09:12→21:08)
[2024-10-08] MEDS: Metoprolol Succinate ER 50 MG TAB.ER.24H PO (09:12)
[2024-10-08] MEDS: Cholecalciferol (Vitamin D3) 25 MCG TABLET PO (09:12)
[2024-10-08] MEDS: Buprenorphine/Naloxone 4/1 mg FILM 1 FILM SUBLINGUAL ×2 (09:13→18:00)
[2024-10-08] MEDS: 0.9 % Sodium Chloride Flush 3 ML SYRINGE IVFLUSH ×3 (09:14→21:08)
[2024-10-08 09:34] LABS: Creatinine Clr Calc Pharmacy 103.7; Estimated Glomerular Filt Rate > 60
--- NOTE | 2024-10-08 12:30 | P.PNADD_ITS ---
Subjective Subjective Date of Service: 10/08/24 Reason For Visit: new onset afib w RVR Interim History: Patient was being considered for discharge today--t/w expressed significant concerns for patient being able to manage medications at home due to impulsivity and poor recall of when he is currently taking medications. Also concern as patient is still taking lorazepam, which he has been overtaking at home. Requested discharge be held until safer plan could be put in place. Patient seen in follow with with Recovery Support RN Upon arrival patient tearful, stating that he was planning on leaving but does not think it is a good idea. This typewriter repairer agreed with patient, that leaving now would not be the best plan. Patient agreeable to staying. Case discussed at length with psych provider, Sonam Johnson, specifically around concern for benzodiazepine misuse, and discharge plan around this. Plan to taper lorazepam with goal of d/c prior to discharge. Patient discussed this with psych provider. Review of Systems Constitutional: Reports as per HPI and Reports difficulty sleeping Mental Status Exam Mental Status Exam Patient Appearance: Appropriate Level of Consciousness: Awake and Alert Patient Behavior: Talkative and Crying Affect Description: Apprehensive Speech Pattern: Clear Thought Content: positive for Circumstantial Judgement: Fair Diagnostics Vital Signs (24Hr): Vital Signs - 24 hr 10/07/24 15:52 10/07/24 19:24 10/07/24 23:55 Temperature 99.5 F 98.6 F 98.1 F Pulse Rate 110 H 84 87 Respiratory Rate 20 20 20 Blood Pressure 134/91 H 150/72 H 129/77 Pulse Oximetry 98 99 97 Oxygen Delivery Method Room Air Room Air Room Air 10/08/24 04:00 10/08/24 07:43 Temperature 98.6 F 98.5 F Pulse Rate 90 97 Respiratory Rate 18 20 Blood Pressure 133/80 148/79 H Pulse Oximetry 96 99 Oxygen Delivery Method Room Air Room Air BMI result Body Mass Index 23.6 Labs 10/06/24 08:36 10/08/24 08:41 Labs: Laboratory Results - last 48 hr 10/07/24 10/08/24 11:13 08:41 Hold Purple Top SEE NOTE Potassium 3.8 Creatinine 0.79 0.69 Estim Creat Clear Calc 90.6 103.7 Estimated GFR > 60 > 60 Magnesium 2.0 Vancomycin Trough 9.7 L Medications Medications Current Medications Acetaminophen (Acetaminophen 325 Mg Tablet) 650 mg PO Q6H PRN PRN Reason: Pain, Mild 1-3,fever,headache Last Admin: 10/06/24 20:16 Dose: 650 mg Apixaban (Apixaban 5 Mg Tablet) 5 mg PO BID [facility] Last Admin: 10/08/24 09:12 Dose: 5 mg Ascorbic Acid (Ascorbic Acid 500 Mg Tablet) 500 mg PO DAILY [facility] Last Admin: 10/08/24 09:12 Dose: 500 mg Benzonatate (Benzonatate 100 Mg Capsule) 100 mg PO TID PRN PRN Reason: Cough Buprenorphine/Naloxone (Buprenorphine/Naloxone 4/1 Mg Film) 1 film SUBLINGUAL BID@0800,1700 [facility] Last Admin: 10/08/24 09:13 Dose: 1 film Calcium Carbonate (Calcium Carbonate 750 Mg Tab.Chew) 750 mg PO Q4H PRN PRN Reason: Heartburn Digoxin (Digoxin 0.25 Mg Tablet) 0.25 mg PO DAILY [facility]; Protocol Last Admin: 10/08/24 09:12 Dose: 0.25 mg Docusate Sodium (Docusate Sodium 100 Mg Capsule) 100 mg PO BID [facility] Last Admin: 10/08/24 09:12 Dose: 100 mg Lorazepam (Lorazepam 1 Mg Tablet) 1 mg PO BEDTIME [facility] Magnesium Hydroxide (Milk Of Magnesia 30 Ml Oral.Susp) 30 ml PO DAILY PRN PRN Reason: Constipation Last Admin: 10/06/24 11:41 Dose: 30 ml Melatonin (Melatonin 3 Mg Tablet) 6 mg PO BEDTIME PRN PRN Reason: Insomnia Last Admin: 10/05/24 20:30 Dose: 6 mg Metoprolol Succinate (Metoprolol Succinate Er 50 Mg Tab.Er.24h) 50 mg PO DAILY [facility]; Protocol Last Admin: 10/08/24 09:12 Dose: 50 mg Ondansetron HCl (Ondansetron Hcl 4 Mg/2 Ml Vial) 4 mg IVPUSH Q8H PRN PRN Reason: Nausea and Vomiting Polyethylene Glycol (Polyethylene Glycol 3350 17 Gm Powd.Pack) 17 gm PO DAILY [facility] Last Admin: 10/08/24 09:12 Dose: 17 gm Sodium Biphosphate/Sodium Phosphate (Sodium Phosphate,[place]-Dibasic 133 Ml Enema) 133 ml GA ONCE PRN PRN Reason: Constipation Last Admin: 10/07/24 15:48 Dose: 133 ml Sodium Chloride (0.9 % Sodium Chloride Flush 3 Ml Syringe) 3 ml IVFLUSH QSHIFT [facility] Last Admin: 10/08/24 09:14 Dose: 3 ml Vitamin D (Cholecalciferol (Vitamin D3) 25 Mcg Tablet) 25 mcg PO DAILY [facility] Last Admin: 10/08/24 09:12 Dose: 25 mcg Vitamin E (Vitamin E (Dl,Tocopheryl Acet) 180 Mg (400 Unit) Capsule) 180 mg PO DAILY [facility] Last Admin: 10/08/24 09:12 Dose: 180 mg Allergies Allergies Allergy/AdvReac Type Severity Reaction Status Date / Time No Known Allergies Allergy Verified 10/04/24 10:06 [No Known Allergies*] Assessment & Plan Assessment & Plan (1) Opioid use disorder, severe, dependence: Status: Acute Code(s): F11.20 - Opioid dependence, uncomplicated Assessment and Plan: * continue suboxone 4mg BID (2) Severe benzodiazepine use disorder: Status: Acute Code(s): F13.20 - Sedative, hypnotic or anxiolytic dependence, uncomplicated Assessment and Plan: * lorazepam dose decreased to 1mg QHS * CIWA already in place to minitor for withdrawal sx Total time managing care of this patient today _45___ minutes.
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
[2024-10-08] MEDS: Milk of Magnesia 30 ML ORAL.SUSP PO (15:32)
[2024-10-08] MEDS: Sodium Phosphate,Mono-Dibasic 133 ML ENEMA PR (16:31)
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
[2024-10-08] MEDS: cefuroxime axetiL 500 MG TABLET PO (18:00)
[2024-10-08] MEDS: LORazepam 1 MG TABLET PO (21:08)
[2024-10-08] MEDS: Melatonin 3 MG TABLET 6 MG PO (21:08)
[2024-10-09] VITALS (7 sets, daily range): BP systolic 110–137; BP diastolic 64–88; PULSE 75–93; RESP 18–20; TEMP 36.3–37.1; O2SAT 95–98
[2024-10-09] MEDS: cefuroxime axetiL 500 MG TABLET PO ×2 (05:13→17:29)
[2024-10-09] MEDS: Acetaminophen 325 MG TABLET 650 MG PO (05:14)
[2024-10-09] MEDS: Digoxin 0.25 MG TABLET PO (08:29)
[2024-10-09] MEDS: 0.9 % Sodium Chloride Flush 3 ML SYRINGE IVFLUSH ×3 (08:29→20:57)
[2024-10-09] MEDS: Vitamin E (Dl,Tocopheryl Acet) 180 MG (400 UNIT) CAPSULE PO (08:29)
[2024-10-09] MEDS: Apixaban 5 MG TABLET PO ×2 (08:29→20:55)
[2024-10-09] MEDS: Metoprolol Succinate ER 50 MG TAB.ER.24H PO (08:29)
[2024-10-09] MEDS: polyethylene glycoL 3350 17 GM POWD.PACK PO (08:29)
[2024-10-09] MEDS: Docusate Sodium 100 MG CAPSULE PO ×2 (08:29→20:55)
[2024-10-09] MEDS: Buprenorphine/Naloxone 4/1 mg FILM 1 FILM SUBLINGUAL ×2 (08:29→17:30)
[2024-10-09] MEDS: Ascorbic Acid 500 MG TABLET PO (08:29)
[2024-10-09] MEDS: Cholecalciferol (Vitamin D3) 25 MCG TABLET PO (08:29)
--- NOTE | 2024-10-09 10:38 | MHC.CM.PN ---
Per ROUNDS discussion, Patient is not yet medically cleared for dc (Benzo taper); PT is recommending home with services and [facility] accepts Patient's insurance and has accepted Patient. CM will follow.
[2024-10-09 12:13] LABS: Creatinine Clr Calc Pharmacy 103.7; Estimated Glomerular Filt Rate > 60
[2024-10-09 12:41] LABS: Potassium 3.9 mmol/L (3.3-5.1)
[2024-10-09] MEDS: hydroCHLOROthiazide 12.5 MG TABLET PO (13:17)
--- NOTE | 2024-10-09 13:37 | P.PNADD_ITS ---
Subjective Subjective Date of Service: 10/09/24 Reason For Visit: new onset afib w RVR Interim History: Patient seen in follow up for lorazepam taper and OUD Tolerating Suboxone 4mg BID--no longer requesting extra doses Lorazepam: last evening dose decreased to 1mg He reports he did not sleep well, but acknowledges that he has not slept well since admission CIWA scores 0 Appearing comfortable, no tremor noted when seen by t/w. Discussed plan for d/c of lorazepam. Patient initially expressed fear and anxiety regarding this. Feels that it is the only medication that allows him to sleep. Inquired about previous med trial, he could only recall trazodone which was prescribed to him during recent ED visit He states that it made him feel shaky and just terrible . T/w reminded patient that he trialed this medication during a time when he was not doing well overall. Patient agreeable. Discussed ongoing suboxone prescription, and plan for medication once home. T/W shared plan for VNA to help with medications. Patient initially upset feeling that he wasn't trusted, then agreeable. Discussed follow up appt with t/w at the [facility]--information provided to patient, including how to get to outpatient office. Review of Systems Constitutional: Reports as per HPI and Reports difficulty sleeping Gastrointestinal: Reports constipation (report that this is a chronic issue ) Mental Status Exam Mental Status Exam Patient Appearance: Appropriate Level of Consciousness: Awake, Appropriate and Alert Patient Behavior: Talkative Mood Description: Appropriate Affect Description: Appropriate Speech Pattern: Clear Thought Content: positive for Tangential Judgement: Fair Diagnostics Vital Signs (24Hr): Vital Signs - 24 hr 10/08/24 13:53 10/08/24 16:00 10/08/24 20:00 Temperature 98.6 F 98.7 F 99.2 F Pulse Rate 86 98 98 Respiratory Rate 20 20 18 Blood Pressure 128/73 126/66 125/84 Pulse Oximetry 95 97 96 Oxygen Delivery Method Room Air Room Air Room Air 10/08/24 23:57 10/09/24 03:54 10/09/24 07:09 Temperature 98.2 F 97.4 F 97.4 F Pulse Rate 78 93 82 Respiratory Rate 20 20 18 Blood Pressure 127/87 125/77 137/75 Pulse Oximetry 97 95 95 Oxygen Delivery Method Room Air Room Air Room Air 10/09/24 09:50 10/09/24 11:16 Temperature 97.5 F Pulse Rate 82 88 Respiratory Rate 18 Blood Pressure 137/75 126/77 Pulse Oximetry 95 98 Oxygen Delivery Method Room Air BMI result Body Mass Index 23.6 Labs 10/06/24 08:36 10/09/24 11:12 Labs: Laboratory Results - last 48 hr 10/08/24 10/09/24 08:41 11:12 Hold Purple Top SEE NOTE Potassium 3.9 Creatinine 0.69 0.69 Estim Creat Clear Calc 103.7 103.7 Estimated GFR > 60 > 60 Medications Medications Current Medications Acetaminophen (Acetaminophen 325 Mg Tablet) 650 mg PO Q6H PRN PRN Reason: Pain, Mild 1-3,fever,headache Last Admin: 10/09/24 05:14 Dose: 650 mg Apixaban (Apixaban 5 Mg Tablet) 5 mg PO BID [facility] Last Admin: 10/09/24 08:29 Dose: 5 mg Ascorbic Acid (Ascorbic Acid 500 Mg Tablet) 500 mg PO DAILY [facility] Last Admin: 10/09/24 08:29 Dose: 500 mg Benzonatate (Benzonatate 100 Mg Capsule) 100 mg PO TID PRN PRN Reason: Cough Buprenorphine/Naloxone (Buprenorphine/Naloxone 4/1 Mg Film) 1 film SUBLINGUAL BID@0800,1700 [facility] Last Admin: 10/09/24 08:29 Dose: 1 film Calcium Carbonate (Calcium Carbonate 750 Mg Tab.Chew) 750 mg PO Q4H PRN PRN Reason: Heartburn Cefuroxime Axetil (Cefuroxime Axetil 500 Mg Tablet) 500 mg PO Q12H [facility] Last Admin: 10/09/24 05:13 Dose: 500 mg Digoxin (Digoxin 0.25 Mg Tablet) 0.25 mg PO DAILY [facility]; Protocol Last Admin: 10/09/24 08:29 Dose: 0.25 mg Docusate Sodium (Docusate Sodium 100 Mg Capsule) 100 mg PO BID [facility] Last Admin: 10/09/24 08:29 Dose: 100 mg Hydrochlorothiazide (Hydrochlorothiazide 12.5 Mg Tablet) 12.5 mg PO DAILY [facility]; Protocol Last Admin: 10/09/24 13:17 Dose: 12.5 mg Magnesium Hydroxide (Milk Of Magnesia 30 Ml Oral.Susp) 30 ml PO DAILY PRN PRN Reason: Constipation Last Admin: 01/23/25 15:32 Dose: 30 ml Melatonin (Melatonin 3 Mg Tablet) 6 mg PO BEDTIME PRN PRN Reason: Insomnia Last Admin: 10/08/24 21:08 Dose: 6 mg Metoprolol Succinate (Metoprolol Succinate Er 50 Mg Tab.Er.24h) 50 mg PO DAILY [facility]; Protocol Last Admin: 10/09/24 08:29 Dose: 50 mg Ondansetron HCl (Ondansetron Hcl 4 Mg/2 Ml Vial) 4 mg IVPUSH Q8H PRN PRN Reason: Nausea and Vomiting Polyethylene Glycol (Polyethylene Glycol 3350 17 Gm Powd.Pack) 17 gm PO DAILY [facility] Last Admin: 10/09/24 08:29 Dose: 17 gm Sodium Biphosphate/Sodium Phosphate (Sodium Phosphate,[place]-Dibasic 133 Ml Enema) 133 ml [place] ONCE PRN PRN Reason: Constipation Last Admin: 10/08/24 16:31 Dose: 133 ml Sodium Chloride (0.9 % Sodium Chloride Flush 3 Ml Syringe) 3 ml IVFLUSH QSHIFT [facility] Last Admin: 10/09/24 08:29 Dose: 3 ml Trazodone HCl (Trazodone Hcl 50 Mg Tablet) 50 mg PO BEDTIME [facility] Vitamin D (Cholecalciferol (Vitamin D3) 25 Mcg Tablet) 25 mcg PO DAILY [facility] Last Admin: 10/09/24 08:29 Dose: 25 mcg Vitamin E (Vitamin E (Dl,Tocopheryl Acet) 180 Mg (400 Unit) Capsule) 180 mg PO DAILY [facility] Last Admin: 10/09/24 08:29 Dose: 180 mg Allergies Allergies Allergy/AdvReac Type Severity Reaction Status Date / Time No Known Allergies Allergy Verified 10/04/24 10:06 [No Known Allergies*] Assessment & Plan Assessment & Plan (1) Opioid use disorder, severe, dependence: Status: Acute Code(s): F11.20 - Opioid dependence, uncomplicated Assessment and Plan: * continue suboxone at current dose * prescription will be sent to [facility] for patient to pick up worker once discharged * Appt scheduled with [facility] 10/16 11am. Patient aware of this, pamphlet and contact information given to patient (2) Severe benzodiazepine use disorder: Status: Acute Code(s): F13.20 - Sedative, hypnotic or anxiolytic dependence, uncomplicated Assessment and Plan: * discussed with Psychiatry --plan to d/c lorazepam * Trazodone 50mg QHS * CIWA in place to monitor for withdrawal sx * Requesting referral/information on supports * if patient tolerated d/c of lorazepam with no withdrawal sx, can discharge over the weekend. Total time managing care of this patient today __35__ minutes.
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
--- NOTE | 2024-10-09 18:26 | PC.NURSE ---
Patient upset about lorazepam being discontinued altogether today. MD Fox aware, stated plan would be to try trazodone for sleep tonight. Per patient he gets very sick , nausea, vomiting, and hard to breath , when took one dose of it at home one time. Refusing to try trazodone again. Relayed to MD Fox. who then discussed this with Christine Galvan- new plan patient may try Mirtazipine 7.5mg PO at bedtime for sleep- patient agreeable to this plan. Still continues upset about lorazepam, requesting for IV to be taken out and threatening to leave AMA. Redirectable at this time.
[2024-10-09] MEDS: Mirtazapine 15 MG TABLET PO (20:55)
[2024-10-09] MEDS: Melatonin 3 MG TABLET 6 MG PO (20:55)
[2024-10-10 03:49] VITALS: BP 114/59; PULSE 76; RESP 18; TEMP 36.8; O2SAT 95
[2024-10-10] MEDS: cefuroxime axetiL 500 MG TABLET PO (05:17)
[2024-10-10 07:02] VITALS: BP 116/58; PULSE 80; RESP 18; TEMP 36.7; O2SAT 97
[2024-10-10 07:56] LABS: Creatinine Clr Calc Pharmacy 85.2; Estimated Glomerular Filt Rate > 60
[2024-10-10] MEDS: polyethylene glycoL 3350 17 GM POWD.PACK PO (08:23)
[2024-10-10] MEDS: Acetaminophen 325 MG TABLET 650 MG PO (08:23)
[2024-10-10] MEDS: Digoxin 0.25 MG TABLET PO (08:24)
[2024-10-10] MEDS: Buprenorphine/Naloxone 4/1 mg FILM 1 FILM SUBLINGUAL (08:24)
[2024-10-10] MEDS: Ascorbic Acid 500 MG TABLET PO (08:24)
[2024-10-10] MEDS: 0.9 % Sodium Chloride Flush 3 ML SYRINGE IVFLUSH (08:24)
[2024-10-10] MEDS: Docusate Sodium 100 MG CAPSULE PO (08:24)
[2024-10-10] MEDS: Apixaban 5 MG TABLET PO (08:24)
[2024-10-10] MEDS: Vitamin E (Dl,Tocopheryl Acet) 180 MG (400 UNIT) CAPSULE PO (08:24)
[2024-10-10] MEDS: Cholecalciferol (Vitamin D3) 25 MCG TABLET PO (08:24)
[2024-10-10] MEDS: hydroCHLOROthiazide 12.5 MG TABLET PO (08:24)
[2024-10-10] MEDS: Metoprolol Succinate ER 50 MG TAB.ER.24H PO (08:24)
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
--- NOTE | 2024-10-10 12:05 | P.F2F_ITS ---
Service Date Service Date: 10/10/24 Encounter Date of encounter: 10/10/24 Reasons for Services Signs and symptoms assessed: needs penitentiary for medication management, multiple medication changes Reason for penitentiary: medication management Reason for physical therapy: home safety and mobility and therapeutic exercises Overseeing Care: Jake Burgos Homebound: Leaving the home is medically contraindicated at this time without the asist of a device and/or another person due th the listed conditions above and below. Reason homebound: weakness related to hospital stay Certification: Based on the above findings, I certify that this patient is confined to the home and needs intermittent penitentiary care, physical therapy and/or speech therapy, or continues to need occupational therapy. The patient is under my care, and I have initiated the establishment of the plan of care. The patient will be followed by a physician who will periodically review the plan of care. Time Spent With Patient Time: Total time managing care of this patient today ____ minutes.
--- NOTE | 2024-10-10 12:05 | MHC.CM.PN ---
Second IMM given 10/10. Pt is medically cleared for discharge with [facility], pt has arranged his own transport home. Heriberto coupon given to pt.
== END 2024-10-10 12:30 | disposition home health service (06) | DRG 309 ==
LOC: HO.ED 14:33 → HO.EDOVER 15:43 → HO.IMC 10-05 16:12
PROVIDERS: Internal Medicine; Nurse Practitioner Family; Student in an Organized Health Care Education/Training Program; Admitting Provider Student in an Organized Health Care Education/Training Program; Emergency Provider Emergency Medicine; PCP Internal Medicine; Visit Provider Physician Assistant Medical
DX: I48.91 Unspecified atrial fibrillation (principal); E87.21 Acute metabolic acidosis; F13.20 Sedative, hypnotic or anxiolytic dependence, uncomplicated; F11.20 Opioid dependence, uncomplicated; N39.0 Urinary tract infection, site not specified; E87.6 Hypokalemia; G89.29 Other chronic pain; W19.XXXA Unspecified fall, initial encounter; I10 Essential (primary) hypertension; M54.2 Cervicalgia; M54.9 Dorsalgia, unspecified; F41.9 Anxiety disorder, unspecified; Z20.822 Contact with and (suspected) exposure to COVID-19; Z79.899 Other long term (current) drug therapy
CPT/HCPCS: 0241U; 36415; 70450; 71045; 71250; 72125; 74176; 80048; 80053; 80202; 80307; 81001; 82565; 83605; 83735; 84132; 84439; 84443; 84484; 85025; 85027; 85610; 87040; 87086; 87147; 87205; 93005; 93306; 97116; 97162; 97165; 97530; 99285; J0696; J1160; J2270; J3370; J3371; J3475; J3480; J7120; Q9957

== ENCOUNTER → 2024-10-04 11:49 | Outpatient (BNV) | payer MEDICARE, SELFPAY | PROVIDERS: Admitting Provider Student in an Organized Health Care Education/Training Program; Emergency Provider Emergency Medicine; PCP Internal Medicine; Visit Provider Internal Medicine Cardiovascular Disease | DX: R00.0 Tachycardia, unspecified (principal); R94.31 Abnormal electrocardiogram [ECG] [EKG]; I48.91 Unspecified atrial fibrillation | CPT/HCPCS: 93010 ==

== ENCOUNTER → 2024-10-04 11:50 | Outpatient (BNV) | payer MEDICARE, SELFPAY | PROVIDERS: Emergency Provider Emergency Medicine; PCP Internal Medicine; Visit Provider Radiology Vascular & Interventional Radiology | DX: R00.0 Tachycardia, unspecified (principal); R10.10 Upper abdominal pain, unspecified; R07.89 Other chest pain; M54.2 Cervicalgia; R42 Dizziness and giddiness | CPT/HCPCS: 70450; 71045; 71250; 72125; 74176 ==

== ENCOUNTER 2024-10-04 15:23 | Outpatient (BNV) | payer MEDICARE, SELFPAY | END 2024-10-05 07:00 | PROVIDERS: Admitting Provider Student in an Organized Health Care Education/Training Program; Emergency Provider Emergency Medicine; PCP Internal Medicine; Visit Provider Internal Medicine Cardiovascular Disease | DX: I34.81 Nonrheumatic mitral (valve) annulus calcification (principal) | CPT/HCPCS: 93306 ==

== ENCOUNTER → 2024-10-04 15:23 | Outpatient (BNV) | payer MEDICARE, SELFPAY | PROVIDERS: Admitting Provider Student in an Organized Health Care Education/Training Program; Emergency Provider Emergency Medicine; PCP Internal Medicine; Visit Provider Student in an Organized Health Care Education/Training Program | DX: I48.91 Unspecified atrial fibrillation (principal); E87.6 Hypokalemia | CPT/HCPCS: 99223; 99231; 99232; 99239; 99499; G0180 ==

== ENCOUNTER → 2024-10-04 15:23 | Outpatient (BNV) | payer MEDICARE, SELFPAY | PROVIDERS: Admitting Provider Student in an Organized Health Care Education/Training Program; Emergency Provider Emergency Medicine; PCP Internal Medicine; Visit Provider Social Worker | DX: F13.20 Sedative, hypnotic or anxiolytic dependence, uncomplicated (principal); F11.20 Opioid dependence, uncomplicated | CPT/HCPCS: 99499 ==

== ENCOUNTER → 2024-10-04 15:23 | Outpatient (BNV) | payer MEDICARE, SELFPAY | PROVIDERS: Admitting Provider Student in an Organized Health Care Education/Training Program; Emergency Provider Emergency Medicine; PCP Internal Medicine; Visit Provider Nurse Practitioner Psychiatric/Mental Health | DX: F11.20 Opioid dependence, uncomplicated (principal); F13.20 Sedative, hypnotic or anxiolytic dependence, uncomplicated | CPT/HCPCS: 99232 ==

== ENCOUNTER → 2024-10-04 15:23 | Outpatient (BNV) | payer MEDICARE, SELFPAY | PROVIDERS: Admitting Provider Student in an Organized Health Care Education/Training Program; Emergency Provider Emergency Medicine; PCP Internal Medicine; Visit Provider Internal Medicine Cardiovascular Disease | DX: I48.91 Unspecified atrial fibrillation (principal) | CPT/HCPCS: 99222 ==

== ENCOUNTER → 2024-10-04 15:23 | Outpatient (BNV) | payer MEDICARE, SELFPAY | PROVIDERS: Admitting Provider Student in an Organized Health Care Education/Training Program; Emergency Provider Emergency Medicine; PCP Internal Medicine; Visit Provider Internal Medicine | DX: R78.81 Bacteremia (principal) | CPT/HCPCS: 99222 ==

== ENCOUNTER 2024-10-16 10:24 | Outpatient (AMB) | payer MEDICARE, SELFPAY ==
[2024-10-16 11:13] VITALS: BP 125/70; PULSE 88; RESP 19; O2SAT 98
--- NOTE | 2024-10-16 11:13 | A.OFFVISCC_ITS ---
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 by this scientific technical writer during recent medical admission where he presented with AMS, and concern for misuse of prescribed benzodiazepines and oxycodone Admission notes reviewed Full substance use history obtained by RN In short, patient was identified as taking more oxycodone than prescribed and more lorazepam than prescribed Please see ACS noted from inpatient admission for information He was initiated on Buprenorphine 4mg BID which he tolerated well and has been continuing Lorazepam was discontinued and Mirtazipine QHS was initiated He reports that sleep is not what is was like with lorazepam, but he is willing to continue with it VNA services in place to assist with medication administration and monitoring He reports that he has noted increase in dry mouth, provided him with oral care with suboxone information Patient verbalizing gratitude for having started medication for OUD Shared that he feels shame for what led to his hospitalization Provided supportive listening and encouragement Review of Systems Const Reports as per HPI and Reports difficulty sleeping (chronic ) Psych Reports anxiety (occasional ) and Reports depression (improving ) Physical Exam Vital Signs: Last Vital Signs Pulse 88 10/16/24 11:13 Resp 19 10/16/24 11:13 BP 125/70 10/16/24 11:13 Pulse Ox 98 10/16/24 11:13 Oxygen Delivery Method Room Air 10/16/24 11:13 Const General: cooperative, healthy appearing and well groomed Nutritional Appearance: average body habitus Orientation/consciousness: patient oriented x3 Limitations: no limitations Neuro General: patient oriented x3 Psych Appearance: grossly normal and well kempt Speech and movement: Normal speech and movement present Affect: normal affect Attitude: cooperative Thought process: Normal thought process present and Circumstantial thought process present Thought content: Normal thought content present Insight: Fair insight present (Psych) Judgement: Good judgement present (Psych) Quality Reporting (2019) Depression/Bipolar (159/160/161/177) PHQ-9: Total score: 8 PFS Medical History (Updated 10/18/24 @ 00:01 by Background Daemon) Anxiety Hypertension Pharyngitis Other spondylosis, cervical region Surgical History History of prostate surgery Family History Father Bone cancer Mother Uterine cancer Brother No problems noted. Sister No problems noted. Social History Household Members: None Housing: House Do you presently have visiting nurse or other home services: Yes Alcohol intake: former Patient Tobacco Use Status: Never used Tobacco Tobacco use type: Cigarette e-Cigarette/Vaping Use: Never Used Second Hand Smoke Exposure: No Substance Use Type: Opiates, Painkillers and Prescription Drugs Advance Directives Date on File: 12/11/23 service: No Current occupational status: retired Cognitive needs: No Hearing needs: No Vision needs: Yes Assessment & Plan Assessment & Plan (1) Opioid use disorder, severe, dependence: Code(s): F11.20 - Opioid dependence, uncomplicated Category: Medical Plan: * continue suboxone at current dose * follow up 2 weeks (2) Severe benzodiazepine use disorder: Code(s): F13.20 - Sedative, hypnotic or anxiolytic dependence, uncomplicated Category: Medical Plan: * no longer prescribed lorazepam * provided support and encouragement regarding new medication for sleep (mirtazipine) Medications: Changed From mirtazapine 15 mg PO BEDTIME 7 days 7 tabs 0RF To mirtazapine 15 mg PO BEDTIME 30 tabs 0RF Refilled buprenorphine-naloxone 4-1 mg (Suboxone) take one film at 8am and 5pm 1 film sublingual BID 14 ea 1RF MAT Intake Nursing Intake Reason for visit: Establish outpt care Are you currently using?: No What is your source of income?: Retired What is your current relationship status?: Single Current PCP: Sheree Wallace Medical Referral Source: ACS Substance Abuse History Substance Abuse History (includes route, frequency and quantity): Oxycodone product and Benzodiazepines Social History Domestic Violence concerns: Denies Children: No Do you have a support system?: Yes he states his adult niece and nephew Current mode of transportation?: Currently has his nephew bringing him, states hes hoping to get cleared to drive again by next appt. I let [place] [facility]. IV Drug Use Have you ever shared needles?: No Have you ever belonged to a needle exchange program?: No Do you buy needles at a pharmacy?: No Have you ever overdosed?: No Have you ever been hospitalized for an overdose?: No Was Naloxone administered?: Not applicable Recovery History Have you had any periods of recovery?: No Have you ever had inpatient treatment for your substance abuse disorder?: No Have you been in an inpatient detoxification program?: No Have you been in an inpatient Rehab/[facility] house?: No Have you been in an outpatient Methadone Maintenance program?: No Have you been in an outpatient Suboxone Maintenance program?: No Have you been in an AA/NA support program?: No Have you had a Recovery Support Analytic Programmer?: No Have you had Peer Support?: No Behavioral Health History Do you have a current provider? If so, who?: Last seen in 1987 diagnosis: Anxiety History of other addictive behavior: Denies History of inpatient psychiatric hospitalization? If so, how many? Most Recent? Where?: Denies History of self harming thoughts?: No History of homicidal or suicidal intentions?: No Medical Conditions Endocarditis?: No Skin Infection: No Seizure related to withdrawal or overdose: No Head or brain injury: No Hepatitis A (if yes, have you been treated?): No Hepatitis B (if yes, have you been treated?): No Hepatitis C (if yes, have you been treated?): No HIV (if yes, have you been treated?): No TB (if yes, have you been treated?): No Other: No Do you have any chronic pain conditions?: Denies Legal History History of incarceration: No Currently on parole or probation: No Court mandated programs: No Pending court cases: No DCF involvement: No PHQ-9 Over the last 2 weeks, how often have you been bothered by any of the following problems? 1. Little interest or pleasure in doing things: several days 2. Feeling down, depressed, or hopeless: several days 3. Trouble falling or staying asleep, or sleeping too much: nearly every day 4. Feeling tired or having little energy: more than half the days 5. Poor appetite or overeating: not at all 6. Feeling bad about yourself - or that you are a failure or have let yourself or your family down: several days 7. Trouble concentrating on things, such as reading the newspaper or watching television: not at all 8. Moving or speaking so slowly that other people could have noticed. Or the opposite - being so fidgety or restless that you have been moving around a lot more than usual: not at all 9. Thoughts that you would be better off or of hurting yourself in some way: not at all Total score: 8 Depression Screening Interpretation: Positive Depression Screening Follow-up: Existing condition and In treatment Depression Screening Done: Yes 81907 - PHQ-9 Billing: Yes Source: Developed by Drs. José Antonio Holloway, Martha Castillo, Daniel Ramos and colleagues, with an educational rosa from [employer]. DEBO-7 AMB Questionnaire DEBO-7 Date DEBO - 7 assessed: 10/16/24 Feeling nervous, anxious, or on edge: 1 = Several days Not being able to stop or control worryin = Several days Worrying too much about different things: 1 = Several days Trouble relaxin = Several days Being so restless that it is hard to sit still: 0 = Not at all Becoming easily annoyed or irritable: 1 = Several days Feeling afraid as if something awful might happen: 1 = Several days Total DEBO-7 score (0-4 normal; 5-9 mild; 10-14 moderate; 15-21 severe): 6 Source: Developed by Drs. José Antonio Holloway, Martha Castillo, Daniel Ramos and colleagues, with an educational rosa from [employer]. DEBO-7 Assessment Billing DEBO-7 Assessment Tool: DEBO-7 Assessment [id number]
== END 2024-10-16 11:40 | disposition home or self-care (01) ==
LOC: HO.HCC 10:24
PROVIDERS: PCP Internal Medicine; Visit Provider Nurse Practitioner Psychiatric/Mental Health
DX: F11.20 Opioid dependence, uncomplicated (principal); F13.20 Sedative, hypnotic or anxiolytic dependence, uncomplicated
CPT/HCPCS: 99214

== ENCOUNTER → 2024-10-16 10:24 | Outpatient (BNVA) | payer MEDICARE, SELFPAY | PROVIDERS: PCP Internal Medicine; Visit Provider Nurse Practitioner Psychiatric/Mental Health | DX: F11.20 Opioid dependence, uncomplicated (principal); F13.20 Sedative, hypnotic or anxiolytic dependence, uncomplicated; Z51.81 Encounter for therapeutic drug level monitoring | CPT/HCPCS: 96127; 99212 ==

== ENCOUNTER 2024-10-30 11:15 | Outpatient (AMB) | payer MEDICARE, SELFPAY ==
--- NOTE | 2024-10-30 11:38 | A.OFFVISCC_ITS ---
Intake Visit Reasons: mat visit Allergies No Known Allergies [No Known Allergies*] Allergy (Verified 10/04/24 10:06) HPI HPI mat visit: Details: Patient presents for OUD follow up Currently prescribed Suboxone 4mg BID Tolerating current dose-- BP 148/90 with visiting nurse who comes in 2x/week Somewhat tearful during visit, feels isolated, but also very anxious to be out among people Review of Systems Const Reports as per HPI and Reports difficulty sleeping Physical Exam Const General: cooperative, healthy appearing and well groomed Nutritional Appearance: average body habitus Orientation/consciousness: patient oriented x3 Limitations: no limitations Neuro General: patient oriented x3 Psych Appearance: grossly normal and well kempt Speech and movement: Normal speech and movement present Affect: normal affect Attitude: cooperative Thought process: Normal thought process present and Circumstantial thought process present Thought content: Normal thought content present Insight: Fair insight present (Psych) Judgement: Good judgement present (Psych) [facility] Medical History (Updated 10/18/24 @ 00:01 by Liyah Little) Anxiety Hypertension Pharyngitis Other spondylosis, cervical region Surgical History History of prostate surgery Family History Father Bone cancer Mother Uterine cancer Brother No problems noted. Sister No problems noted. Social History Household Members: None Housing: House Do you presently have visiting nurse or other home services: Yes Alcohol intake: former Patient Tobacco Use Status: Never used Tobacco Tobacco use type: Cigarette e-Cigarette/Vaping Use: Never Used Second Hand Smoke Exposure: No Substance Use Type: Opiates, Painkillers and Prescription Drugs Advance Directives Date on File: 12/11/23 service: No Current occupational status: retired Cognitive needs: No Hearing needs: No Vision needs: Yes Assessment & Plan Assessment & Plan (1) Opioid use disorder, severe, dependence: Code(s): F11.20 - Opioid dependence, uncomplicated Category: Medical Plan: * continue suboxone at current dose * follow up 2 weeks (2) Severe benzodiazepine use disorder: Code(s): F13.20 - Sedative, hypnotic or anxiolytic dependence, uncomplicated Category: Medical Plan: * continue mirtazipine for sleep Orders: Referrals Counseling Referral F11.20 - Opioid dependence, uncomplicated, F13.20 - Sedative, hypnotic or anxiolytic dependence, uncomplicated Medications: Refilled buprenorphine-naloxone 4-1 mg (Suboxone) take one film at 8am and 5pm 1 film sublingual BID 28 ea 1RF
== END 2024-10-30 11:58 | disposition home or self-care (01) ==
LOC: HO.HCC 11:15
PROVIDERS: PCP Internal Medicine; Visit Provider Nurse Practitioner Psychiatric/Mental Health
DX: F11.20 Opioid dependence, uncomplicated (principal); F13.20 Sedative, hypnotic or anxiolytic dependence, uncomplicated
CPT/HCPCS: 99214

== ENCOUNTER → 2024-10-30 11:15 | Outpatient (BNVA) | payer MEDICARE, SELFPAY | PROVIDERS: PCP Internal Medicine; Visit Provider Nurse Practitioner Psychiatric/Mental Health | DX: F11.20 Opioid dependence, uncomplicated (principal); F13.20 Sedative, hypnotic or anxiolytic dependence, uncomplicated | CPT/HCPCS: 99212 ==

== ENCOUNTER 2024-11-18 09:32 | Outpatient (AMB) | payer MEDICARE, SELFPAY ==
--- NOTE | 2024-11-18 09:56 | A.OFFVISCC_ITS ---
Intake Visit Reasons: mat visit Allergies No Known Allergies [No Known Allergies*] Allergy (Verified 10/04/24 10:06) HPI HPI mat visit: Details: Patient presents for OUD treatment follow up Currently prescribed Suboxone 4mg BID Tolerating current dose, however he has reduced his dose to 2mg BID Decreased dose one week ago Reports that he no longer experiencing night sweats Still isolating, decreased motivation Discussed antidepressant trial--patient declined Review of Systems Const Reports as per HPI and Reports difficulty sleeping (occasionally) Psych Reports depression and Reports anhedonia Physical Exam Const General: cooperative, healthy appearing and well groomed Nutritional Appearance: average body habitus Orientation/consciousness: patient oriented x3 Limitations: no limitations Neuro General: patient oriented x3 Psych Appearance: grossly normal and well kempt Speech and movement: Normal speech and movement present Affect: normal affect Attitude: cooperative Thought process: Normal thought process present and Circumstantial thought process present Thought content: Normal thought content present Insight: Fair insight present (Psych) Judgement: Good judgement present (Psych) [facility] Medical History (Updated 10/18/24 @ 00:01 by Liyah Little) Anxiety Hypertension Pharyngitis Other spondylosis, cervical region Surgical History History of prostate surgery Family History Father Bone cancer Mother Uterine cancer Brother No problems noted. Sister No problems noted. Social History Household Members: None Housing: House Do you presently have visiting nurse or other home services: Yes Alcohol intake: former Patient Tobacco Use Status: Never used Tobacco Tobacco use type: Cigarette e-Cigarette/Vaping Use: Never Used Second Hand Smoke Exposure: No Substance Use Type: Opiates, Painkillers and Prescription Drugs Advance Directives Date on File: 12/11/23 service: No Current occupational status: retired Cognitive needs: No Hearing needs: No Vision needs: Yes Assessment & Plan Assessment & Plan (1) Opioid use disorder, severe, dependence: Code(s): F11.20 - Opioid dependence, uncomplicated Category: Medical Plan: * continue suboxone at current dose * follow up 4 weeks * encouraged to consider antidepressant or BH support referral (2) Severe benzodiazepine use disorder: Code(s): F13.20 - Sedative, hypnotic or anxiolytic dependence, uncomplicated Category: Medical Plan: * continue mirtazipine for sleep
== END 2024-11-18 10:18 | disposition home or self-care (01) ==
PROVIDERS: PCP Internal Medicine; Visit Provider Nurse Practitioner Psychiatric/Mental Health
DX: F11.20 Opioid dependence, uncomplicated (principal); F13.20 Sedative, hypnotic or anxiolytic dependence, uncomplicated
CPT/HCPCS: 99214

== ENCOUNTER → 2024-11-18 09:32 | Outpatient (BNVA) | payer MEDICARE, SELFPAY | PROVIDERS: PCP Internal Medicine; Visit Provider Nurse Practitioner Psychiatric/Mental Health | DX: F11.20 Opioid dependence, uncomplicated (principal); F13.20 Sedative, hypnotic or anxiolytic dependence, uncomplicated | CPT/HCPCS: 99212 ==

== ENCOUNTER 2024-12-18 11:32 | Outpatient (AMB) | payer MEDICARE, SELFPAY ==
--- NOTE | 2024-12-18 11:43 | A.OFFVIS_ITS ---
Vital Signs 12/18/24 11:56 Height 6 ft 3 in Weight 200 lb BMI 25.0 Pulse 60 Pulse Source Pulse Oximeter Pulse Oximetry (%) 96 Oxygen Delivery Method Room Air Intake Visit Reasons: mat visit Allergies No Known Allergies [No Known Allergies*] Allergy (Verified 12/18/24 11:56) HPI HPI mat visit: Details: He has been doing best on 4/1 bid Suboxone. He wanted to taper last month and felt ill after trying. I had seen him in hospital last in September after falling and has healing wounds. His PCP Dr Jonathan Burgos retired and he is seeing Dr Lopez but not yet and needs scripts. He is asking also for lorazepam which looks like issued bid in past. [facility] Medical History Anxiety Hypertension Pharyngitis Other spondylosis, cervical region Surgical History History of prostate surgery Family History Father Bone cancer Mother Uterine cancer Brother No problems noted. Sister No problems noted. Social History Household Members: None Housing: House Do you presently have visiting nurse or other home services: Yes Alcohol intake: former Patient Tobacco Use Status: Never used Tobacco Tobacco use type: Cigarette e-Cigarette/Vaping Use: Never Used Second Hand Smoke Exposure: No Substance Use Type: Opiates, Painkillers and Prescription Drugs Advance Directives Date on File: 12/11/23 service: No Current occupational status: retired Cognitive needs: No Hearing needs: No Vision needs: Yes Review of Systems Const All systems reviewed & are unremarkable except as noted in HPI and below Physical Exam Vital Signs: Last Vital Signs Pulse 60 12/18/24 11:56 Pulse Ox 96 12/18/24 11:56 Oxygen Delivery Method Room Air 12/18/24 11:56 BMI result Body Mass Index 25.0 Const General: cooperative Assessment & Plan Assessment & Plan (1) Opioid use disorder, severe, dependence: Comment: He is comfortable on 4/1 bid Suboxone Would continue and see in person in two months. He has no signs of sedation or cognitive concerns. If wishes to taper off consider injectable buprenorphine. Code(s): F11.20 - Opioid dependence, uncomplicated Category: Medical Plan: na Plan na Medications: New buprenorphine-naloxone 4-1 mg (Suboxone) place 1 strip/tab under (each) side of tongue 1 film sublingual BID 30 days 60 ea 1RF Coding Level of Care Code Est Pt Level 3 (57136) Diagnoses Opioid use disorder, severe, dependence F11.20
[2024-12-18 11:56] VITALS: PULSE 60; O2SAT 96; BMI 25.0
== END 2024-12-18 12:53 | disposition home or self-care (01) ==
LOC: HO.HID 11:32
PROVIDERS: PCP Internal Medicine; Visit Provider Internal Medicine
DX: F11.20 Opioid dependence, uncomplicated (principal)
CPT/HCPCS: 99213

== ENCOUNTER → 2024-12-18 11:32 | Outpatient (BNVA) | payer MEDICARE, SELFPAY | PROVIDERS: PCP Internal Medicine; Visit Provider Internal Medicine | DX: F11.20 Opioid dependence, uncomplicated (principal) | CPT/HCPCS: 99212 ==

== ENCOUNTER 2025-01-21 11:56 | Outpatient (AMB) | payer MEDICARE, SELFPAY ==
[2025-01-21 12:30] VITALS: BP 134/82; PULSE 55; O2SAT 98; BMI 24.2
--- NOTE | 2025-01-21 12:30 | MHC.PC.OV ---
Vital Signs 01/21/25 12:30 Height 6 ft 3 in Weight 194 lb BMI 24.2 BP 134/82 Blood Pressure Location Lt brachial Position Sitting Pulse 55 Pulse Source Pulse Oximeter Pulse Oximetry (%) 98 Oxygen Delivery Method Room Air Intake Visit Reasons: BAIRON Dr Burgos Sql Report Writer Required: No Accompanied by: Self / Same As Patient Allergies No Known Allergies [No Known Allergies*] Allergy (Verified 01/21/25 12:58) Medication List - Last Reconciled 01/21/25 by Jamaal Lopez MD apixaban (Eliquis) 5 mg PO BID 90 days ascorbic acid (vitamin C) (Vitamin C) 500 mg PO DAILY buprenorphine-naloxone 4-1 mg (Suboxone) 1 film sublingual BID buprenorphine-naloxone 4-1 mg (Suboxone) 1 film sublingual BID 30 days cholecalciferol (vitamin D3) (Vitamin D3) 25 mcg PO DAILY coenzyme Q10 (Co Q-10) 50 mg PO DAILY digoxin 250 mcg PO DAILY 30 days hydrochlorothiazide 12.5 mg See Protocol PO DAILY 90 days metoprolol succinate ER 50 mg See Protocol PO DAILY 90 days mirtazapine 15 mg PO BEDTIME omega 8-wyg-gmg-fish oil 1,000 (120-180) mg (Fish Oil) 1 cap PO DAILY vitamin E 268 mg PO DAILY zinc acetate 25 mg PO DAILY Tobacco use date assessed: 01/21/25 Fall risk assessment: No Falls in past year Last assessed Fall Risk: 01/21/25 Dental Screening Dental Screen Date: 01/21/25 Did you have a dental visit in the last 12 months?: Yes Did you have a dental problem in the last 6 months where you did not have access to dental care?: No Was dental information given to patient?: Patient has dentist HPI BAIRON Dr Burgos HPI Details Patient comes in today for his follow up visit - is transferring over from Dr. Burgos, who retired from the practice a couple of months ago Patient states that he has been experiencing a persistent ringing in his ears for the past few months now He has also been experiencing problems sleeping at night and even with his current Mirtazapine, he only gets about 4 hours of sleep He is currently on Suboxone 4-1 mg BID that is being prescribed by Dr. Galvan States that he used to be on Lorazepam and Oxycodone for years but has been weaned off both medications over the past few months States that he did not have any problems coming off his Oxycodone but it took him a while to come off the Lorazepam mostly because he relies on the medication to help him sleep over the years He currently denies any headaches or dizziness Denies any chest pains, no increased shortness of breath No nausea/vomiting, no abdominal pain No change in bowel habits noted States that he has been experiencing on and off swelling of both his legs lately since his Hydrochlorothiazide dose was cut in half to 12.5 mg QD during his last hospitalization in September 2024 He also recalls being advised back in September 2024 that his serum potassium level was low and he has not had any follow-up labs done since [facility] Medical History (Updated 01/22/25 @ 05:44 by Jamaal Lopez MD) Essential hypertension Mood disorder Tinnitus Cervical spondylosis Paroxysmal atrial fibrillation Anxiety Other spondylosis, cervical region Surgical History History of prostate surgery Family History Father Bone cancer Mother Uterine cancer Brother No problems noted. Sister No problems noted. Social History Household Members: None Housing: House Do you presently have visiting nurse or other home services: Yes Alcohol intake: former Patient Tobacco Use Status: Never used Tobacco Tobacco use type: Cigarette e-Cigarette/Vaping Use: Never Used Second Hand Smoke Exposure: No Substance Use Type: Opiates, Painkillers and Prescription Drugs Advance Directives Date on File: 12/11/23 service: No Current occupational status: retired Cognitive needs: No Hearing needs: No Vision needs: Yes Questionnaire PHQ-9 Over the last 2 weeks, how often have you been bothered by any of the following problems? 1. Little interest or pleasure in doing things: more than half the days 2. Feeling down, depressed, or hopeless: nearly every day 3. Trouble falling or staying asleep, or sleeping too much: nearly every day 4. Feeling tired or having little energy: more than half the days 5. Poor appetite or overeating: more than half the days 6. Feeling bad about yourself - or that you are a failure or have let yourself or your family down: not at all 7. Trouble concentrating on things, such as reading the newspaper or watching television: more than half the days 8. Moving or speaking so slowly that other people could have noticed. Or the opposite - being so fidgety or restless that you have been moving around a lot more than usual: not at all 9. Thoughts that you would be better off or of hurting yourself in some way: not at all Total score: 14 Depression Screening Interpretation: Positive Depression Screening Follow-up: Existing condition and In treatment Depression Screening Done: Yes 27305 - PHQ-9 Billing: Yes Source: Developed by Drs. José Antonio Holloway, Martha Castillo, Daniel Ramos and colleagues, with an educational rosa from [employer]. Thrive Questionnaire Date Thrive assessed: 01/21/25 I am a: Patient What is your living situation today?: I have a steady place to live Within the past 12 months, did the food you bought not last and you didn't have the money to get more?: Never true Within the past 12 months, did you worry whether your food would run out before you got money to buy more?: Often true Do you have trouble paying for medicines?: No Do you have trouble getting transportation to medical appointments?: No Do you have trouble paying your heating and electricity bill?: No Do you have trouble taking care of your child, family member or friend?: No Do you have trouble with day-to-day activities such as bathing, preparing meals, shopping, managing finances, etc.?: No Are you currently unemployed and looking for a job?: No Are you interested in more education?: No Please select the resources that you would like help with: None Currently or been in a relationship where the following occur: I choose not to answer THRIVE Score: 1 AUDIT C Alcohol Use Questionnaire (AUDIT-C) 1. How often do you have a drink containing alcohol?: Never 3. How often do you have six or more drinks on one occasion?: Never Total Score: 0 Score Reviewed/Action Taken: Yes DEBO-7 AMB Questionnaire DEBO-7 Date DEBO - 7 assessed: 01/21/25 Feeling nervous, anxious, or on edge: 0 = Not at all Not being able to stop or control worryin = Not at all Worrying too much about different things: 0 = Not at all Trouble relaxin = Not at all Being so restless that it is hard to sit still: 0 = Not at all Becoming easily annoyed or irritable: 0 = Not at all Feeling afraid as if something awful might happen: 0 = Not at all Total DEBO-7 score (0-4 normal; 5-9 mild; 10-14 moderate; 15-21 severe): 0 Source: Developed by Drs. José Antonio Holloway, Martha Castillo, Daniel Ramos and colleagues, with an educational rosa from [employer]. Review of Systems Const Denies chills, Reports difficulty sleeping, Reports fatigue, Denies fever(s) and Denies headache(s) ENT Denies dysphagia, Denies dizziness, Denies otalgia, Denies headache(s), Reports neck pain (chronic), Denies odynophagia, Reports tinnitus (in both ears) and Denies sore throat Card Denies chest pain, Denies palpitations and Denies dyspnea Resp Denies chest congestion, Denies cough and Denies dyspnea GI Denies abdominal pain, Denies constipation, Denies dysphagia, Denies heartburn, Denies diarrhea, Denies nausea, Denies odynophagia and Denies vomiting Denies dysuria and Denies nocturia Musc Denies back pain and Reports neck pain (chronic) Neuro Denies dizziness and Denies headache(s) Psych Reports anxiety Endo Reports fatigue and Denies palpitations Physical exam (Primary Care) Vital Signs: Last Vital Signs Pulse 55 01/21/25 12:30 BP 134/82 01/21/25 12:30 Pulse Ox 98 01/21/25 12:30 Oxygen Delivery Method Room Air 01/21/25 12:30 BMI result Body Mass Index 24.2 Tobacco/Smoking Status: Tobacco use Status Tobacco use date assessed 01/21/25 01/21/25 12:35 Patient Tobacco Use Status Never used Tobacco 01/21/25 12:35 Tobacco use type Cigarette 01/21/25 12:35 e-Cigarette/Vaping Use Never Used 01/21/25 12:35 PHQ-9: PHQ-9 Score PHQ-9: Total score 14 01/21/25 13:07 Depression Screening Interpretation: Positive Depression Screening Follow-up: Existing condition and In treatment Thrive Assessment: Date of Thrive Assessment Date Thrive assessed 01/21/25 01/21/25 12:35 Currently or been in a relationship where the following occur: I choose not to answer Const General: no acute distress and alert HENMT Ears: TM's normal bilaterally and EAC's normal Throat: Yes posterior oropharynx normal and Yes tonsils normal (no TP congestion) Neck Neck: No lymphadenopathy and Yes tender Thyroid: Thyroid normal Resp Auscultation: clear to auscultation bilaterally, no rales and no wheezes Cardio Rate: regular rate Rhythm: regular rhythm Heart sounds: no murmurs GI Palpation (GI): Soft to palpation and nontender Auscultation: normal bowel sounds General: Yes no CVA tenderness Back/Spine/Pelvis Back: no CVA tenderness Cervical Spine: Cervical spine tenderness Thoracic/Lumbar Spine: No lumbar spinal tenderness Skin Rashes: no rashes Extrem General: Yes edema (1+ bipedal edema noted on both lower extremities) Coding Level of Care Code Est Pt Level 4 (67662) Diagnoses Essential hypertension I10 Paroxysmal atrial fibrillation I48.0 Cervical spondylosis M47.812 Hypokalemia E87.6 Tinnitus of both ears H93.13 Laterality: bilateral Insomnia, unspecified type G47.00 Insomnia type: unspecified Opioid use disorder, severe, dependence F11.20 Severe benzodiazepine use disorder F13.20 Mood disorder F39 Additional Codes PHQ-9 - 67262 - PHQ-9 Billing: Yes ([id number]) Assessment & Plan Assessment & Plan (1) Essential hypertension: Code(s): I10 - Essential (primary) hypertension Category: Medical Plan: Reinforced low sodium diet - goal is systolic BP of 120 to 130 mm or less Continue HCTZ 12.5 mg QD - Rx refilled He used to take HCTZ 25 mg QD but dose was cut in half when he was at the hospital in September 2024 due to low blood pressure readings Patient is reminded to continue monitoring his blood pressure regularly (2) Paroxysmal atrial fibrillation: Code(s): I48.0 - Paroxysmal atrial fibrillation Category: Medical Plan: Patient is currently in sinus rhythm Continue Metoprolol ER 50 mg QD and Digoxin 0.25 mg QD Continue Eliquis 5 mg BID for thromboembolism prophylaxis Echocardiogram done back in September 2024 revealed that his LV ejection fraction appears to be normal 65%, (+) mitral annular calcification noted, with cardiac valvular dopplers grossly within normal limits. There is also normal calculated RV systolic pressure noted Will send him for repeat labs NEELAM for further evaluation, including his serum digoxin level (3) Cervical spondylosis: Code(s): M47.812 - Spondylosis without myelopathy or radiculopathy, cervical region Category: Medical Plan: States that his neck pains have been mostly manageable lately He used to take Oxycodone for years but notes that his neck pain has not really gotten any significantly worse since he was weaned off his opioid Rx a few months ago (4) Hypokalemia: Code(s): E87.6 - Hypokalemia Category: Medical Plan: Discussed with patient that this was most likely due to his oral diuretic Rx Will send him for repeat labs to recheck his serum potassium level as well (5) Tinnitus: Code(s): H93.19 - Tinnitus, unspecified ear Category: Medical Qualifiers: Laterality: bilateral Qualified Code(s): H93.13 - Tinnitus, bilateral Plan: Unknown etiology but may possibly be due to digoxin toxicity Have advised patient to get his repeat labs done NEELAM as we will also need to check his serum digoxin level and if it is high, will need to cut back his dose (6) Insomnia: Code(s): G47.00 - Insomnia, unspecified Category: Medical Qualifiers: Insomnia type: unspecified Qualified Code(s): G47.00 - Insomnia, unspecified Plan: Sleep hygiene discussed He admits to taking his Lorazepam over the years to help him sleep at night He is currently on Mirtazapine 15 mg QHS, which he states is helping him get about 4 hours of sleep at night Will try increasing his Mirtazapine now to 30 mg Q HS to see if this will help him sleep better and longer (7) Opioid use disorder, severe, dependence: Comment: He is comfortable on 4/1 bid Suboxone Would continue and see in person in two months. He has no signs of sedation or cognitive concerns. If wishes to taper off consider injectable buprenorphine. Code(s): F11.20 - Opioid dependence, uncomplicated Category: Medical Plan: Continue Suboxone 4-1 mg BID Follow up with Dr. Galvan as scheduled (8) Severe benzodiazepine use disorder: Code(s): F13.20 - Sedative, hypnotic or anxiolytic dependence, uncomplicated Category: Medical Plan: Patient used to take Lorazepam for years but was recently tapered off this by psychiatry although he as still able to get this filled a couple of months ago due to some refills left on his old Rx from Dr. Burgos He is now OFF of his Lorazepam completely and states that he is still struggling to sleep at night (9) Mood disorder: Code(s): F39 - Unspecified mood [affective] disorder Category: Medical Plan: Continue Mirtazapine but will increase this now to 30 mg Q HS Follow up with psychiatry as scheduled Plan Follow up in 3 months Orders: Orders Digoxin 01/21/25 E87.6 - Hypokalemia, I50.20 - Unspecified systolic (congestive) heart failure UA CC w/rflx Micro + Cult 01/21/25 E87.6 - Hypokalemia, R30.0 - Dysuria TSH reflex Free T4 01/21/25 E78.00 - Pure hypercholesterolemia, unspecified, E87.6 - Hypokalemia B Type Natriuretic Peptide 01/21/25 E87.6 - Hypokalemia, I50.9 - Heart failure, unspecified Lipid Panel 01/21/25 E78.00 - Pure hypercholesterolemia, unspecified Complete Blood Count Auto Diff 01/21/25 D64.9 - Anemia, unspecified, E87.6 - Hypokalemia Magnesium 01/21/25 E83.42 - Hypomagnesemia, E87.6 - Hypokalemia Vitamin D 25-OH Total 01/21/25 E55.9 - Vitamin D deficiency, unspecified, E87.6 - Hypokalemia Vitamin B12 and Folate 01/21/25 E53.8 - Deficiency of other specified B group vitamins, E87.6 - Hypokalemia Comprehensive [place]. Panel Fast 01/21/25 E78.00 - Pure hypercholesterolemia, unspecified Prostate Specific Antigen 01/21/25 N40.0 - Benign prostatic hyperplasia without lower urinary tract symptoms Medications: Changed From mirtazapine 15 mg PO BEDTIME 30 tabs 3RF To mirtazapine 30 mg PO BEDTIME 30 days 30 tabs 3RF
== END 2025-01-21 13:23 | disposition home or self-care (01) ==
LOC: HO.HMCH 11:56
PROVIDERS: PCP Internal Medicine; Visit Provider Internal Medicine
DX: I10 Essential (primary) hypertension (principal); I48.0 Paroxysmal atrial fibrillation; F11.20 Opioid dependence, uncomplicated; F13.20 Sedative, hypnotic or anxiolytic dependence, uncomplicated; M47.812 Spondylosis without myelopathy or radiculopathy, cervical region; E87.6 Hypokalemia; H93.13 Tinnitus, bilateral; G47.00 Insomnia, unspecified; F39 Unspecified mood [affective] disorder

== ENCOUNTER → 2025-01-21 11:56 | Outpatient (BNVA) | payer MEDICARE, SELFPAY | PROVIDERS: PCP Internal Medicine; Visit Provider Internal Medicine | DX: I10 Essential (primary) hypertension (principal); I48.0 Paroxysmal atrial fibrillation; M47.812 Spondylosis without myelopathy or radiculopathy, cervical region; E87.6 Hypokalemia; H93.13 Tinnitus, bilateral; G47.00 Insomnia, unspecified; F11.20 Opioid dependence, uncomplicated; F13.20 Sedative, hypnotic or anxiolytic dependence, uncomplicated; F39 Unspecified mood [affective] disorder; Z79.899 Other long term (current) drug therapy | CPT/HCPCS: 96127; 99212 ==

== ENCOUNTER 2025-01-29 09:27 | Outpatient (REF) | payer MEDICARE, SELFPAY ==
[2025-01-29 09:42] LABS: MANUAL DIFF FLAG NO
[2025-01-29 10:49] LABS: Basophils Percent Auto 0.4 % (0-2); Eosinophils Absolute Auto 0.3 X10*3/uL (0.0-0.4); Eosinophils Percent Auto 4.4 % (0-4); Hematocrit 43.6 % (42.0-52.0); Hemoglobin 15.1 g/dl (14.0-18.0); Imm Gran Abs Auto 0.02 X10*3/uL (0.00-0.03); Imm Gran Pct Auto 0.3 % (0.0-0.4); Lymphocytes Percent Auto 53.9 % (20-40); Mean Corpuscular HGB Conc 34.6 g/dl (31.0-36.0); Mean Corpuscular Hemoglobin 29.8 pg (27.0-33.0); Mean Platelet Volume 9.8 fL (9.4-12.4); Monocytes Absolute Auto 0.4 X10*3/uL (0.1-1.2); Monocytes Percent Auto 4.9 % (2-11); Neutrophils Absolute Auto 2.7 x10*3/uL (2.0-8.3); Neutrophils Percent Auto 36.1 % (45-73); Platelet Count 235 X10*3/uL (160-400); Red Blood Count 5.07 X10*6/uL (4.60-5.80); White Blood Count 7.5 X10*3/uL (4.8-10.8)
[2025-01-29 10:55] LABS: Appearance Urine Clear; Color Urine Yellow; Glucose Urine UA Negative (Negative); Leukocyte Esterase Urine Small (1+) (Negative); Nitrite Urine Negative (Negative); UMIC TRIGGER UACC YES; Urine Blood Negative (Negative); Urine Ketones Negative (Negative); Urine Protein Negative (Neg-Trace)
[2025-01-29 11:10] LABS: Bacteria Urine None Seen (None Seen); Hyaline Casts Urine 0-2 /LPF (0-2); RBC Urine 0-2 /HPF (0-2); Squamous Epithelial Cell Urine 0-2 /HPF (0-2); UACC Culture Trigger YES; WBC Urine 0-5 /HPF (0-5)
[2025-01-29 11:15] LABS: Digoxin 1.7 ng/mL (0.8-2.0)
[2025-01-29 11:17] LABS: B Type Natriuretic Peptide 22 pg/mL (<100)
[2025-01-29 11:34] LABS: Alanine Aminotransferase 27 U/L (0-40); Albumin Level 4.1 g/dL (3.5-5.0); Alkaline Phosphatase 67 U/L (39-117); Anion Gap 12 (12-20); Aspartate Amino Transferase 24 U/L (5-37); Bilirubin Total 0.8 mg/dL (0.0-1.0); Blood Urea Nitrogen 13 mg/dL (9-16); Calcium 9.4 mg/dL (8.4-10.2); Carbon Dioxide 30 mmol/L (22-29); Chloride 102 mmol/L (96-108); Cholesterol 219 mg/dL (<200); Estimated Glomerular Filt Rate > 60; Glucose Fasting 117 mg/dL (60-99); HDL Cholesterol 33 mg/dL (>40); LDL Cholesterol Calculated 128 mg/dL (<100); Potassium 3.7 mmol/L (3.3-5.1); Sodium 140 mmol/L (135-145); TSH reflex Free T4 3.93 uIU/mL (0.32-4.0); Total Protein 7.6 g/dL (6.5-8.0); Triglycerides 290 mg/dL (<150); Vitamin D 25-OH Total 47.7 ng/mL (>30)
[2025-01-29 11:45] LABS: Folate 10.4 ng/mL (> or = 4.0); Prostate Specific Antigen 1.57 ng/mL (<0.05-4.0); Vitamin B12 437 pg/mL (200-900)
== END 2025-01-29 09:28 | disposition home or self-care (01) ==
LOC: HO.LAB 09:27
PROVIDERS: PCP Internal Medicine; Visit Provider Internal Medicine
DX: E87.6 Hypokalemia (principal); E78.00 Pure hypercholesterolemia, unspecified; N40.0 Benign prostatic hyperplasia without lower urinary tract symptoms; I50.20 Unspecified systolic (congestive) heart failure; I50.9 Heart failure, unspecified; D64.9 Anemia, unspecified; E83.42 Hypomagnesemia; E53.8 Deficiency of other specified B group vitamins; R30.0 Dysuria; Z12.5 Encounter for screening for malignant neoplasm of prostate
CPT/HCPCS: 36415; 80053; 80061; 80162; 81001; 82306; 82607; 82746; 83735; 83880; 84153; 84443; 85025; 87086

== ENCOUNTER 2025-03-01 09:27 | Outpatient (AMB) | payer MEDICARE, SELFPAY ==
--- NOTE | 2025-03-01 10:53 | A.OFFVISCC_ITS ---
Intake Visit Reasons: MAT Allergies No Known Allergies [No Known Allergies*] Allergy (Verified 01/21/25 12:58) HPI HPI MAT: Details: He is doing well. He takes Suboxone 4/1 bid and has been thinking of decreasing because of dental problems and is losing teeth. He needs dentist and was given recommendations Review of Systems Const All systems reviewed & are unremarkable except as noted in HPI and below Physical Exam Const General: cooperative [facility] Medical History Essential hypertension Mood disorder Tinnitus Cervical spondylosis Paroxysmal atrial fibrillation Anxiety Other spondylosis, cervical region Surgical History History of prostate surgery Family History Father Bone cancer Mother Uterine cancer Brother No problems noted. Sister No problems noted. Social History Household Members: None Housing: House Do you presently have visiting nurse or other home services: Yes Alcohol intake: former Patient Tobacco Use Status: Never used Tobacco Tobacco use type: Cigarette e-Cigarette/Vaping Use: Never Used Second Hand Smoke Exposure: No Substance Use Type: Opiates, Painkillers and Prescription Drugs Advance Directives Date on File: 12/11/23 service: No Current occupational status: retired Cognitive needs: No Hearing needs: No Vision needs: Yes Assessment & Plan Assessment & Plan (1) Opioid use disorder, severe, dependence: Comment: He has dental concerns he thinks related to Suboxone strips Will continue Suboxone 4/1 bid 1 month and one refill,feels better on bid See in two months Code(s): F11.20 - Opioid dependence, uncomplicated Category: Medical (2) Severe benzodiazepine use disorder: Code(s): F13.20 - Sedative, hypnotic or anxiolytic dependence, uncomplicated Category: Medical Plan He had difficulties weaning down but is off benzos. Medications: New buprenorphine-naloxone 4-1 mg (Suboxone) place 1 strip/tab under (each) side of tongue 1 film sublingual BID 30 days 60 ea 1RF Discontinued buprenorphine-naloxone 4-1 mg (Suboxone) take one film at 8am and 5pm Discontinued Reason: Patient Completed Course 1 film sublingual BID 28 ea 1RF
== END 2025-03-01 10:51 | disposition home or self-care (01) ==
LOC: HO.HCC 09:28
PROVIDERS: PCP Internal Medicine; Visit Provider Internal Medicine
DX: F11.20 Opioid dependence, uncomplicated (principal); F13.20 Sedative, hypnotic or anxiolytic dependence, uncomplicated
CPT/HCPCS: 99213

== ENCOUNTER → 2025-03-01 09:27 | Outpatient (BNVA) | payer MEDICARE, SELFPAY | PROVIDERS: PCP Internal Medicine; Visit Provider Internal Medicine | DX: F11.20 Opioid dependence, uncomplicated (principal); F13.20 Sedative, hypnotic or anxiolytic dependence, uncomplicated | CPT/HCPCS: 99212 ==

== ENCOUNTER 2025-05-21 12:56 | Outpatient (AMB) | payer MEDICARE, SELFPAY ==
--- NOTE | 2025-05-21 13:07 | A.OFFVIS_ITS ---
Vital Signs 05/21/25 13:10 Height 6 ft 3 in Weight 204 lb BMI 25.5 Pulse 58 Pulse Source Pulse Oximeter Pulse Oximetry (%) 97 Oxygen Delivery Method Room Air Intake Visit Reasons: MAT Allergies No Known Allergies (No Known Allergies*) Allergy (Verified 05/21/25 13:10) HPI HPI MAT: Details: He feels anxious and as though his dose of 4/1 bid is not sufficient for cravings. [facility] Medical History Essential hypertension Mood disorder Tinnitus Cervical spondylosis Paroxysmal atrial fibrillation Anxiety Other spondylosis, cervical region Surgical History History of prostate surgery Family History Father Bone cancer Mother Uterine cancer Brother No problems noted. Sister No problems noted. Social History Household Members: None Housing: House Do you presently have visiting nurse or other home services: Yes Alcohol intake: former Patient Tobacco Use Status: Never used Tobacco Tobacco use type: Cigarette e-Cigarette/Vaping Use: Never Used Second Hand Smoke Exposure: No Substance Use Type: Opiates, Painkillers and Prescription Drugs Advance Directives Date on File: 12/11/23 service: No Current occupational status: retired Cognitive needs: No Hearing needs: No Vision needs: Yes Review of Systems Const All systems reviewed & are unremarkable except as noted in HPI and below Physical Exam Vital Signs: Last Vital Signs Pulse 58 05/21/25 13:10 Pulse Ox 97 05/21/25 13:10 Oxygen Delivery Method Room Air 05/21/25 13:10 BMI result Body Mass Index 25.5 Const General: cooperative Assessment & Plan Assessment & Plan (1) Opioid use disorder, severe, dependence: Comment: He feels as though he is not getting maximal suboxone benefit and I agree he is at half dose Code(s): F11.20 - Opioid dependence, uncomplicated Category: Medical Plan: Increase Suboxone to 8/2 bid. See in one month Medications: New buprenorphine-naloxone 8-2 mg (Suboxone) 1 film sublingual BID 60 ea 2RF 30 days Discontinued buprenorphine-naloxone 4-1 mg (Suboxone) place 1 strip/tab under (each) side of tongue Discontinued Reason: Doctor's Order 1 film sublingual BID 30 days 60 ea 1RF Coding Level of Care Code Est Pt Level 3 (19131) Diagnoses Opioid use disorder, severe, dependence F11.20
[2025-05-21 13:10] VITALS: PULSE 58; O2SAT 97; BMI 25.5
== END 2025-05-21 13:36 | disposition home or self-care (01) ==
LOC: HO.HCC 12:56
PROVIDERS: PCP Internal Medicine; Visit Provider Internal Medicine
DX: F11.20 Opioid dependence, uncomplicated (principal)
CPT/HCPCS: 99213

== ENCOUNTER → 2025-05-21 12:56 | Outpatient (BNVA) | payer MEDICARE, SELFPAY | PROVIDERS: PCP Internal Medicine; Visit Provider Internal Medicine | DX: F11.20 Opioid dependence, uncomplicated (principal); F41.9 Anxiety disorder, unspecified; Z79.899 Other long term (current) drug therapy | CPT/HCPCS: 99212 ==

== ENCOUNTER 2025-05-26 11:50 | Outpatient (AMB) | payer MEDICARE, SELFPAY ==
--- NOTE | 2025-05-26 12:28 | MHC.PC.OV ---
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 Accompanied by: Self / Same As Patient Allergies No Known Allergies (No Known Allergies*) Allergy (Verified 05/26/25 12:53) Medication List - Last Reconciled 05/26/25 by Jamaal Lopez MD apixaban (Eliquis) 5 mg PO BID 90 days ascorbic acid (vitamin C) (Vitamin C) 500 mg PO DAILY buprenorphine-naloxone 8-2 mg (Suboxone) 1 film sublingual BID 30 days cholecalciferol (vitamin D3) (Vitamin D3) 25 mcg PO DAILY coenzyme Q10 (Co Q-10) 50 mg PO DAILY digoxin 250 mcg PO DAILY 30 days hydrochlorothiazide 12.5 mg See Protocol PO DAILY 90 days metoprolol succinate ER 50 mg See Protocol PO DAILY 90 days mirtazapine 30 mg PO BEDTIME 30 days Tobacco use date assessed: 05/26/25 Fall risk assessment: No Falls in past year Last assessed Fall Risk: 05/26/25 Dental Screening Dental Screen Date: 05/26/25 Did you have a dental visit in the last 12 months?: Yes Did you have a dental problem in the last 6 months where you did not have access to dental care?: No Was dental information given to patient?: Patient has dentist HPI 3 Months HPI Details Patient comes in today for his follow up visit States that he feels okay but he continues to struggle with sleeping at night Would like to see if his Mirtazapine dose can be raised further - admits that he has been taking his current Mirtazapine 30 mg at 1.5 tablets at times lately just so he can fall asleep and that is why he is running short on his Mirtazapine Rx States that alternatively, if his Mirtazapine dose cannot be raised further, he would like to try going back on some Lorazepam, which he states help him sleep very well in the past He denies any headaches or dizziness Denies any chest pains, no SOB No nausea/vomiting, no abdominal pain No change in bowel habits noted Needs several of his Rx refilled and would like for them to be sent in for a 90 days supply He had some follow up labs done back in January 2025 and would like to know how he did on his labs back then [facility] Medical History (Updated 05/26/25 @ 16:00 by Jamaal Lopez MD) Mixed hyperlipidemia Essential hypertension Mood disorder Tinnitus Cervical spondylosis Paroxysmal atrial fibrillation Anxiety Other spondylosis, cervical region Surgical History History of prostate surgery Family History Father Bone cancer Mother Uterine cancer Brother No problems noted. Sister No problems noted. Social History Household Members: None Housing: House Do you presently have visiting nurse or other home services: Yes Alcohol intake: former Patient Tobacco Use Status: Never used Tobacco Tobacco use type: Cigarette e-Cigarette/Vaping Use: Never Used Second Hand Smoke Exposure: No Substance Use Type: Opiates, Painkillers and Prescription Drugs Advance Directives Date on File: 12/11/23 service: No Current occupational status: retired Cognitive needs: No Hearing needs: No Vision needs: Yes Questionnaire PHQ-9 Over the last 2 weeks, how often have you been bothered by any of the following problems? 1. Little interest or pleasure in doing things: more than half the days 2. Feeling down, depressed, or hopeless: nearly every day 3. Trouble falling or staying asleep, or sleeping too much: nearly every day 4. Feeling tired or having little energy: more than half the days 5. Poor appetite or overeating: more than half the days 6. Feeling bad about yourself - or that you are a failure or have let yourself or your family down: not at all 7. Trouble concentrating on things, such as reading the newspaper or watching television: more than half the days 8. Moving or speaking so slowly that other people could have noticed. Or the opposite - being so fidgety or restless that you have been moving around a lot more than usual: not at all 9. Thoughts that you would be better off or of hurting yourself in some way: not at all Total score: 14 Depression Screening Interpretation: Positive Depression Screening Follow-up: Existing condition and In treatment Depression Screening Done: Yes 14712 - PHQ-9 Billing: Yes Source: Developed by Drs. José Antonio Holloway, Martha Castillo, Daniel Ramos and colleagues, with an educational rosa from [employer]. Thrive Questionnaire Date Thrive assessed: 05/26/25 I am a: Patient What is your living situation today?: I have a steady place to live Within the past 12 months, did the food you bought not last and you didn't have the money to get more?: Never true Within the past 12 months, did you worry whether your food would run out before you got money to buy more?: Often true Do you have trouble paying for medicines?: No Do you have trouble getting transportation to medical appointments?: No Do you have trouble paying your heating and electricity bill?: No Do you have trouble taking care of your child, family member or friend?: No Do you have trouble with day-to-day activities such as bathing, preparing meals, shopping, managing finances, etc.?: No Are you currently unemployed and looking for a job?: No Are you interested in more education?: No Please select the resources that you would like help with: None Currently or been in a relationship where the following occur: I choose not to answer THRIVE Score: 1 AUDIT C Alcohol Use Questionnaire (AUDIT-C) 1. How often do you have a drink containing alcohol?: Never 3. How often do you have six or more drinks on one occasion?: Never Total Score: 0 Score Reviewed/Action Taken: Yes DEBO-7 AMB Questionnaire DEBO-7 Date DEBO - 7 assessed: 05/26/25 Feeling nervous, anxious, or on edge: 0 = Not at all Not being able to stop or control worryin = Not at all Worrying too much about different things: 0 = Not at all Trouble relaxin = Not at all Being so restless that it is hard to sit still: 0 = Not at all Becoming easily annoyed or irritable: 0 = Not at all Feeling afraid as if something awful might happen: 0 = Not at all Total DEBO-7 score (0-4 normal; 5-9 mild; 10-14 moderate; 15-21 severe): 0 Source: Developed by Jose Angel Stoveret B.W. Jonathan, Daniel Ramos and colleagues, with an educational rosa from [employer]. Review of Systems Const Denies chills, Reports difficulty sleeping, Reports fatigue, Denies fever(s) and Denies headache(s) ENT Denies dysphagia, Denies dizziness, Denies otalgia, Denies headache(s), Reports neck pain (chronic), Denies odynophagia, Reports tinnitus (in both ears) and Denies sore throat Card Denies chest pain, Denies palpitations and Denies dyspnea Resp Denies chest congestion, Denies cough and Denies dyspnea GI Denies abdominal pain, Denies constipation, Denies dysphagia, Denies heartburn, Denies diarrhea, Denies nausea, Denies odynophagia and Denies vomiting Denies difficulty urinating, Denies dysuria, Denies nocturia and Denies urinary frequency Musc Denies back pain and Reports neck pain (chronic) Skin/Breast Denies rash Neuro Denies dizziness and Denies headache(s) Psych Reports anxiety Endo Reports fatigue and Denies palpitations Physical exam (Primary Care) Vital Signs: Last Vital Signs Pulse 66 05/26/25 12:29 BP 142/90 H 05/26/25 12:29 Pulse Ox 97 05/26/25 12:29 Oxygen Delivery Method Room Air 05/26/25 12:29 BMI result Body Mass Index 25.2 Tobacco/Smoking Status: Tobacco use Status Tobacco use date assessed 05/26/25 05/26/25 12:37 Patient Tobacco Use Status Never used Tobacco 05/26/25 12:37 Tobacco use type Cigarette 05/26/25 12:37 e-Cigarette/Vaping Use Never Used 05/26/25 12:37 PHQ-9: PHQ-9 Score PHQ-9: Total score 14 05/26/25 13:12 Depression Screening Interpretation: Positive Depression Screening Follow-up: Existing condition and In treatment Thrive Assessment: Date of Thrive Assessment Date Thrive assessed 05/26/25 05/26/25 12:37 Currently or been in a relationship where the following occur: I choose not to answer Const General: no acute distress and alert HENMT Throat: Yes posterior oropharynx normal and Yes tonsils normal (no TP congestion) Neck Neck: No lymphadenopathy and Yes tender Thyroid: Thyroid normal Resp Auscultation: clear to auscultation bilaterally, no rales and no wheezes Cardio Rate: regular rate Rhythm: regular rhythm Heart sounds: no murmurs GI Palpation (GI): Soft to palpation and nontender Auscultation: normal bowel sounds General: Yes no CVA tenderness Back/Spine/Pelvis Back: no CVA tenderness Cervical Spine: Cervical spine tenderness Thoracic/Lumbar Spine: No lumbar spinal tenderness Skin Rashes: no rashes Extrem General: Yes edema (1+ bipedal edema noted on both lower extremities) Results Reviewed Results Reviewed: Laboratory Tests 01/29/25 01/29/25 09:35 09:37 WBC 7.5 Hgb 15.1 Hct 43.6 D Plt Count 235 Sodium 140 Potassium 3.7 Creatinine 0.85 Estimated GFR > 60 Fasting Glucose 117 H Calcium 9.4 D Magnesium 2.0 AST 24 ALT 27 B-Natriuretic Peptide 22 Triglycerides 290 H Cholesterol 219 H LDL Cholesterol, Calc 128 H HDL Cholesterol 33 L Prostate Specific Ag 1.57 Vitamin B12 437 25-OH Vitamin D Total 47.7 TSH 3.93 Ur Specific Barney 1.020 Urine Protein Negative Urine Glucose (UA) Negative Urine Blood Negative Urine Nitrite Negative Ur Leukocyte Esterase Small (1+) H Digoxin 1.7 Coding Level of Care Code Est Pt Level 4 (24480) Diagnoses Essential hypertension I10 Paroxysmal atrial fibrillation I48.0 Mixed hyperlipidemia E78.2 Impaired fasting glucose R73.01 Cervical spondylosis M47.812 Hypokalemia E87.6 Tinnitus of both ears H93.13 Laterality: bilateral Insomnia, unspecified type G47.00 Insomnia type: unspecified Opioid use disorder, severe, dependence F11.20 Severe benzodiazepine use disorder F13.20 Mood disorder F39 Additional Codes PHQ-9 - 50687 - PHQ-9 Billing: Yes ([id number]) Assessment & Plan Assessment & Plan (1) Essential hypertension: Code(s): I10 - Essential (primary) hypertension Category: Medical Plan: Reinforced low sodium diet - goal is systolic BP of 120 to 130 mm or less Continue HCTZ 12.5 mg QD He used to take HCTZ 25 mg QD but dose was cut in half when he was at the hospital in September 2024 due to low blood pressure readings Patient is reminded to continue monitoring his blood pressure regularly (2) Paroxysmal atrial fibrillation: Code(s): I48.0 - Paroxysmal atrial fibrillation Category: Medical Plan: Patient is currently still in sinus rhythm Continue Metoprolol ER 50 mg QD and Digoxin 0.25 mg QD His serum digoxin level came back normal on his labs done back in January 2025 Continue Eliquis 5 mg BID for thromboembolism prophylaxis Echocardiogram done back in September 2024 revealed that his LV ejection fraction appears to be normal 65%, (+) mitral annular calcification noted, with cardiac valvular dopplers grossly within normal limits. There is also normal calculated RV systolic pressure noted (3) Mixed hyperlipidemia: Code(s): E78.2 - Mixed hyperlipidemia Category: Medical Plan: Have advised patient that his serum triglyceride level has increased from previous on his recent labs but his LDL cholesterol has improved slightly from before Reinforced low cholesterol diet Will recheck his labs and fasting lipids in 4 months for follow up (4) Impaired fasting glucose: Code(s): R73.01 - Impaired fasting glucose Category: Medical Plan: He is advised that his serum glucose level was up at 117 mg/dl on his recent labs done back in January 2025 Reinforced low calorie/low carb diet Will recheck his FBS and HgbA1c in a few months for follow up / further evaluation (5) Cervical spondylosis: Code(s): M47.812 - Spondylosis without myelopathy or radiculopathy, cervical region Category: Medical Plan: States that his neck pains have been mostly manageable lately He used to take Oxycodone for years but notes that his neck pain has not really gotten any significantly worse since he was weaned off his opioid Rx a few months ago (6) Hypokalemia: Code(s): E87.6 - Hypokalemia Category: Medical Plan: Results of his labs done back in January 2025 reviewed and discussed with patient - he is advised that his serum potassium level came back normal at 3.7 Have discussed with patient that his low potassium level previously was most likely due to his oral diuretic Rx Will have him recheck his labs in 4 months for follow up (7) Tinnitus: Code(s): H93.19 - Tinnitus, unspecified ear Category: Medical Qualifiers: Laterality: bilateral Qualified Code(s): H93.13 - Tinnitus, bilateral Plan: Unknown etiology Have advised patient that his recent labs do not show any findings to help explain his tinnitus and that this may be due to hearing loss, which would not be uncommon as we get older Advised that we can refer him to ENT for further evaluation but patient asked to hold off on this for now and he will call for referral if he decides to see ENT (8) Insomnia: Code(s): G47.00 - Insomnia, unspecified Category: Medical Qualifiers: Insomnia type: unspecified Qualified Code(s): G47.00 - Insomnia, unspecified Plan: Sleep hygiene reinforced He admits that he has been taking his Lorazepam over the years to help him sleep better at night and he has been having a hard time since this was stopped at the beginning of the year He is currently on Mirtazapine 30 mg QHS, which he states was helping but he had to take 1.5 tablet of that at times Will go ahead and increase his Mirtazapine all the way up to 45 mg Q HS now - patient is advised that this is the maximum dose and that he should not go over the 45 mg dose at any time (9) Opioid use disorder, severe, dependence: Comment: He feels as though he is not getting maximal suboxone benefit and I agree he is at half dose Code(s): F11.20 - Opioid dependence, uncomplicated Category: Medical Plan: Continue Suboxone 4-1 mg BID Follow up with Dr. Galvan as scheduled (10) Severe benzodiazepine use disorder: Code(s): F13.20 - Sedative, hypnotic or anxiolytic dependence, uncomplicated Category: Medical Plan: Patient used to take Lorazepam for years but was tapered off this by psychiatry earlier this year although he was still able to get this filled a few months ago due to some refills left on his old Rx from Dr. Burgos He is now OFF of his Lorazepam completely and states that he is still struggling to sleep at night - again asked to be reinstated on Lorazepam, which I have declined (11) Mood disorder: Code(s): F39 - Unspecified mood [affective] disorder Category: Medical Plan: Continue Mirtazapine but will increase this now to 45 mg Q HS Follow up with psychiatry as scheduled Plan Follow up in 3 months Orders: Orders Complete Blood Count Auto Diff 4 Months D64.9 - Anemia, unspecified Comprehensive [place]. Panel Fast 4 Months E78.00 - Pure hypercholesterolemia, unspecified UA CC w/rflx Micro + Cult 4 Months R30.0 - Dysuria Hemoglobin A1c 4 Months R73.01 - Impaired fasting glucose Digoxin 4 Months I50.20 - Unspecified systolic (congestive) heart failure Lipid Panel 4 Months E78.00 - Pure hypercholesterolemia, unspecified TSH reflex Free T4 4 Months E78.00 - Pure hypercholesterolemia, unspecified Magnesium 4 Months E83.42 - Hypomagnesemia Medications: Changed From mirtazapine 30 mg PO BEDTIME 30 days 30 tabs 3RF To mirtazapine 45 mg PO BEDTIME 90 tabs 1RF 90 days From digoxin 250 mcg PO DAILY 30 days 30 tabs 1RF To digoxin 250 mcg PO DAILY 90 tabs 1RF 90 days Refilled metoprolol succinate ER 50 mg See Protocol PO DAILY 90 tabs 1RF 90 days apixaban (Eliquis) 5 mg PO BID 180 tabs 1RF 90 days
[2025-05-26 12:29] VITALS: BP 142/90; PULSE 66; O2SAT 97; BMI 25.2
== END 2025-05-26 13:07 | disposition home or self-care (01) ==
LOC: HO.HMCH 11:51
PROVIDERS: PCP Internal Medicine; Visit Provider Internal Medicine
DX: I10 Essential (primary) hypertension (principal); I48.0 Paroxysmal atrial fibrillation; F11.20 Opioid dependence, uncomplicated; F13.20 Sedative, hypnotic or anxiolytic dependence, uncomplicated; E78.2 Mixed hyperlipidemia; R73.01 Impaired fasting glucose; M47.812 Spondylosis without myelopathy or radiculopathy, cervical region; E87.6 Hypokalemia; H93.13 Tinnitus, bilateral; G47.00 Insomnia, unspecified; F39 Unspecified mood [affective] disorder

== ENCOUNTER → 2025-05-26 11:50 | Outpatient (BNVA) | payer MEDICARE, SELFPAY | PROVIDERS: PCP Internal Medicine; Visit Provider Internal Medicine | DX: I10 Essential (primary) hypertension (principal); I48.0 Paroxysmal atrial fibrillation; E78.2 Mixed hyperlipidemia; R73.01 Impaired fasting glucose; M47.812 Spondylosis without myelopathy or radiculopathy, cervical region; E87.6 Hypokalemia; H93.13 Tinnitus, bilateral; G47.00 Insomnia, unspecified; F11.20 Opioid dependence, uncomplicated; F13.20 Sedative, hypnotic or anxiolytic dependence, uncomplicated; D64.9 Anemia, unspecified; E78.00 Pure hypercholesterolemia, unspecified; R30.0 Dysuria; I50.20 Unspecified systolic (congestive) heart failure; E83.42 Hypomagnesemia; F39 Unspecified mood [affective] disorder | CPT/HCPCS: 96127; 99212 ==

== ENCOUNTER 2025-08-23 14:48 | Outpatient (AMB) | payer MEDICARE, SELFPAY ==
[2025-08-23 15:10] VITALS: BP 146/78; PULSE 84; O2SAT 96
--- NOTE | 2025-08-23 15:10 | MHC.AM.SUB ---
Vital Signs 08/23/25 15:10 BP 146/78 H Pulse 84 Pulse Oximetry (%) 96 Intake Visit Reasons: mat visit Allergies No Known Allergies (No Known Allergies*) Allergy (Verified 09/01/25 13:31) HPI HPI mat visit: Details: He is taking Suboxone as directed Physical Exam Vital Signs: Last Vital Signs Pulse 84 08/23/25 15:10 BP 146/78 H 08/23/25 15:10 Pulse Ox 96 08/23/25 15:10 PFSH Medical History (Updated 05/26/25 @ 16:00 by Jamaal Lopez MD) Mixed hyperlipidemia Essential hypertension Mood disorder Tinnitus Cervical spondylosis Paroxysmal atrial fibrillation Anxiety Other spondylosis, cervical region Surgical History History of prostate surgery Family History Father Bone cancer Mother Uterine cancer Brother No problems noted. Sister No problems noted. Social History Household Members: None Housing: House Do you presently have visiting nurse or other home services: Yes Alcohol intake: former Patient Tobacco Use Status: Never used Tobacco Tobacco use type: Cigarette e-Cigarette/Vaping Use: Never Used Second Hand Smoke Exposure: No Substance Use Type: Opiates, Painkillers and Prescription Drugs Advance Directives Date on File: 12/11/23 service: No Current occupational status: retired Cognitive needs: No Hearing needs: No Vision needs: Yes Assessment & Plan Assessment & Plan (1) Opioid use disorder, severe, dependence: Comment: He feels as though he is not getting maximal suboxone benefit and I agree he is at half dose Code(s): F11.20 - Opioid dependence, uncomplicated Category: Medical Plan He is doing well Medications: New buprenorphine-naloxone 8-2 mg (Suboxone) 1 film sublingual BID 60 ea 2RF 30 days Patient Instructions: Continue Suboxone
== END 2025-08-23 15:35 | disposition home or self-care (01) ==
LOC: HO.HCC 14:48
PROVIDERS: PCP Internal Medicine; Visit Provider Internal Medicine
DX: F11.20 Opioid dependence, uncomplicated (principal)
CPT/HCPCS: 99213

== ENCOUNTER → 2025-08-23 14:48 | Outpatient (BNVA) | payer MEDICARE, SELFPAY | PROVIDERS: PCP Internal Medicine; Visit Provider Internal Medicine | DX: F11.20 Opioid dependence, uncomplicated (principal) | CPT/HCPCS: 99212 ==

== ENCOUNTER 2025-09-01 13:25 | Outpatient (AMB) | payer MEDICARE, SELFPAY ==
[2025-09-01 13:31] VITALS: BP 162/104; PULSE 63; TEMP 36.8; O2SAT 98; BMI 25.1
--- NOTE | 2025-09-01 13:31 | AM.OFFWIN_ITS ---
Intake Vital Signs 09/01/25 13:31 09/01/25 13:39 Height 6 ft 3 in Weight 201 lb BMI 25.1 BP 162/104 H 152/94 H Blood Pressure Location Lt brachial Rt brachial Position Sitting Sitting Pulse 63 Pulse Source Pulse Oximeter Temp 98.2 F Temp Source Oral Pulse Oximetry (%) 98 Oxygen Delivery Method Room Air Intake Visit Reasons: EP-mouth infection Intake Note: pt presents with ongoing lips and mouth bleeding- ongoing for 10 months directly 1 month after starting Suboxone- also started losing teeth after starting suboxone. pt c/o nausea all day untl 2-3 pm and only able to eat yogurt up until then, also c/o leg clamps. Patient Tobacco Use Status: Never used Tobacco Allergies No Known Allergies (No Known Allergies*) Allergy (Verified 09/01/25 13:31) Do you need a note to return to daycare/school/sports/work: No HPI HPI Comments History of Present Illness Details History of Present Illness - The patient is an 80-year-old male pre senting with lumps on his lips and in his mouth, along with nausea. - He states these symptoms started in th e morning and the nausea persists until 2 or 3 in the afternoon, during which time he can only tolerate yogurt. - The patient is on Suboxone therapy, wh ich his primary care provider prescribed following an overdose on prescribed opioids in September of this year. - He has crusting to his lips, dark dry tongue, and tooth decay since being on the suboxone. - He attributes the oral symptoms and si gnificant tooth decay, which has required extractions, to the sublingual Suboxone. - A previous course of amoxicillin helpe d resolve the oral symptoms. - Regarding his Suboxone regimen, he was initially prescribed two strips a day but has independently reduced his dose to one 4.5 mg strip per day, taken at night, for the last 4-5 months. - He reports severe anxiety if he does n ot take the medication and takes it at night due to fear of not being able to sleep. - His past medical history is significan t for chronic neck pain from an injury, which is the original reason for his opioid prescription. - He also has a history of dependence on Valium and describes a difficult withdrawal period. - The patient has a follow-up appointmen t with his primary care provider in September. - He denies fever, chills, cold symptoms , SHAFFER, sore throat, ear pain, vomiting, tremors, or seizures. Physical Exam General: Cooperative, healthy appearing, comfortable, no acute distress and well developed Orientation: Patient oriented x3 Limitations: No limitations Mouth: Dry mucosa. Cracked lips noted. Black spot noted on a spot of the tongue. Multiple dental caries and broken teeth. Neck: Normal visual inspection and Yes full ROM. No lymphadenopathy noted. Respiratory: Normal respiratory effort and able to speak in complete sentences. Clear to auscultation bilaterally. No w/r/r noted. Cardiovascular: Regular rate and rhythm. Normal S1 and S2. No m/r/g noted. Skin: No rashes or lesions noted Patient was informed and verbally consented to the use of an ambient scribe for clinic note documentation during this visit. [facility] Medical History (Updated 05/26/25 @ 16:00 by Jamaal Lopez MD) Mixed hyperlipidemia Essential hypertension Mood disorder Tinnitus Cervical spondylosis Paroxysmal atrial fibrillation Anxiety Other spondylosis, cervical region Surgical History History of prostate surgery Family History Father Bone cancer Mother Uterine cancer Brother No problems noted. Sister No problems noted. Social History Household Members: None Housing: House Do you presently have visiting nurse or other home services: Yes Alcohol intake: former Patient Tobacco Use Status: Never used Tobacco Tobacco use type: Cigarette e-Cigarette/Vaping Use: Never Used Second Hand Smoke Exposure: No Substance Use Type: Opiates, Painkillers and Prescription Drugs Advance Directives Date on File: 12/11/23 service: No Current occupational status: retired Cognitive needs: No Hearing needs: No Vision needs: Yes Review of Systems Const All systems reviewed & are unremarkable except as noted in HPI and below Physical Exam Vital Signs: Last Vital Signs Temp 98.2 F 09/01/25 13:31 Pulse 63 09/01/25 13:31 BP 152/94 H 09/01/25 13:39 Pulse Ox 98 09/01/25 13:31 Oxygen Delivery Method Room Air 09/01/25 13:31 BMI result Body Mass Index 25.1 Assessment & Plan Assessment & Plan (1) Infection of mouth: Code(s): K12.2 - Cellulitis and abscess of mouth (2) Dental decay: Code(s): K02.9 - Dental caries, unspecified Plan Most likely Oral Lesions And Suspected Infection and dental decay plan - The patient's oral lumps and bleeding lips are likely an adverse effect of sublingual Suboxone therapy. - A 10-day course of amoxicillin will be prescribed to treat a possible superimposed bacterial infection and provide symptomatic relief, as it has been effective for him in the past. - The patient should follow up with his primary care provider for long-term management. - An anti-nausea medication will be prescribed for symptomatic relief. - Recommended discussing long-term management and potential weaning of Suboxone with his primary care provider. Medications: New ondansetron 4 mg PO Q8H PRN 10 tabs 0RF nausea and vomiting amoxicillin 500 mg PO Q12H 20 tabs 0RF 10 days Coding Level of Care Code Est Pt Level 3 (23013) Diagnoses Infection of mouth K12.2 Dental decay K02.9
[2025-09-01 13:39] VITALS: BP 152/94
== END 2025-09-01 14:50 | disposition home or self-care (01) ==
PROVIDERS: PCP Internal Medicine; Visit Provider Physician Assistant Medical
DX: K12.2 Cellulitis and abscess of mouth (principal)

== ENCOUNTER → 2025-09-01 13:25 | Outpatient (BNVA) | payer MEDICARE, SELFPAY | PROVIDERS: PCP Internal Medicine; Visit Provider Physician Assistant Medical | DX: K12.2 Cellulitis and abscess of mouth (principal); K02.9 Dental caries, unspecified | CPT/HCPCS: 99212 ==